=== PATIENT | male | born 1935 | race Caucasian/White ===

== ENCOUNTER 2016-10-11 02:29 | Emergency (ER) | payer MEDICARE, OTHER ==
[2016-10-11 02:37] VITALS: BP 136/58
== END 2016-10-11 03:30 | disposition left against medical advice (07) ==
LOC: ER 02:29
DX: Z53.21 Procedure and treatment not carried out due to patient leaving prior to being seen by health care provider (principal)

== ENCOUNTER → 2017-04-12 | Outpatient (CLI) | payer MEDICARE, OTHER ==
--- NOTE | 2017-04-12 12:04 | RADIOLOGY REPORT (SQ) ---
EXAM DESCRIPTION: CAROTID DOPPLER COMPLETED DATE/TIME: 04/12/2017 11:48 am REASON FOR STUDY: OCCLUSION [id number] TRIB RTNL VEIN OCCLUSION, RIGHT EYE, WITH MACULAR E COMPARISON: None. TECHNIQUE: Grayscale ultrasound, Doppler velocity and spectra, and color Doppler images acquired of the extra-cranial carotid and vertebral arteries. Images stored on PACS. LIMITATIONS: None. FINDINGS: RIGHT CAROTID CCA Velocities: Within normal limits. ICA Velocities Peak systolic 0.41 m/s. End diastolic 0 point 0 8 m/s. Proximal ICA/CCA peak systolic ratio 2.8. Mild to moderate heterogeneous plaque at the bifurcation and adjacent internal carotid LEFT CAROTID CCA Velocities: Within normal limits. ICA Velocities Peak systolic 0.49 m/s. End diastolic 0.13 m/s. Proximal ICA/CCA peak systolic ratio 2.0. Mild to moderate heterogeneous plaque at the bifurcation and adjacent internal carotid VERTEBRAL ARTERIES: Antegrade flow. Normal waveforms. SUBCLAVIAN ARTERIES: No finding. OTHER: No other significant finding. IMPRESSION: NO HEMODYNAMICALLY SIGNIFICANT STENOSIS. COMMENT: Quality ID #[id number]: Velocity criteria are extrapolated from the diameter data as defined by t he Society of Radiologists in Ultrasound Consensus Conference. Radiology 2003: 229; 340-346. TECHNICAL DOCUMENTATION: JOB ID: [id number] [employer]- All Rights Reserved
== END ==
LOC: SP 10:46
PROVIDERS: ATTEND Ophthalmology
DX: H34.8310 Tributary (branch) retinal vein occlusion, right eye, with macular edema (principal)
CPT/HCPCS: 93880

== ENCOUNTER 2017-09-11 08:12 | Emergency (ER) | payer MEDICARE, OTHER ==
--- NOTE | 2017-09-11 09:44 | RADIOLOGY REPORT (SQ) ---
EXAM DESCRIPTION: SHOULDER LEFT 2 OR MORE VIEWS COMPLETED DATE/TIME: 09/11/2017 9:37 am REASON FOR STUDY: pain COMPARISON: None. NUMBER OF VIEWS: Three views. TECHNIQUE: Internal rotation, external rotation, and Y view images acquired of the left shoulder. LIMITATIONS: None. FINDINGS: MINERALIZATION: Normal. BONES: No acute fracture or dislocation. No worrisome bone lesions. JOINTS: Mild osteoarthritis of the acromioclavicular and glenohumeral joints. VISUALIZED LUNGS AND RIBS: No pneumothorax. No rib fracture. SOFT TISSUES: No radiopaque foreign body. OTHER: No other significant finding. IMPRESSION: MILD OSTEOARTHRITIS. NO RADIOGRAPHIC EVIDENCE OF ACUTE INJURY. TECHNICAL DOCUMENTATION: JOB ID: [id number] [employer]- All Rights Reserved
[2017-09-11 10:16] LABS: ANION GAP 10 (5-19); BLOOD UREA NITROGEN 15 mg/dL (7-20); CALCIUM 9.4 mg/dL (8.4-10.2); CARBON DIOXIDE 27 mmol/L (22-30); CHLORIDE 104 mmol/L (98-107); GLUCOSE 93 mg/dL (75-110); POTASSIUM 3.9 mmol/L (3.6-5.0); SODIUM 140.6 mmol/L (137-145)
[2017-09-11] MEDS ORDERED: IBUPROFEN 600 MG TABLET PO ONE (10:20)
[2017-09-11] MEDS ORDERED: LIDOCAINE 5% (700 MG) TRANSDERMAL ADH..PATCH TP ONE (10:56)
--- NOTE | 2017-09-11 10:58 | ER Document Report ---
ED General - General Chief Complaint: Shoulder Pain Stated Complaint: LEFT ARM,LEG PAIN Time Seen by Provider: 09/11/17 08:58 TRAVEL OUTSIDE OF THE [place] IN LAST 30 DAYS: No - HPI Patient complains to provider of: left shoulder pain/no injury and left leg pain Onset: Last week Onset/Duration: Gradual Severity: Moderate Context: Pt. states his left shoulder has been bothering him for a few weeks, gradually getting worse. Aggravated with movement of extremity. Also c/o left leg discomfort. "Hurts all over" no weakness or back pain. Associated symptoms: None Exacerbated by: Movement Relieved by: Denies Similar symptoms previously: No Recently seen / treated by doctor: No - Related Data Allergies/Adverse Reactions: No Known Allergies Allergy (Verified 12/06/11 11:52) Past Medical History - General Information source: Patient - Social History Smoking Status: Former Smoker Frequency of alcohol use: None Drug Abuse: None Lives with: Family - Family History: Reviewed & Not Pertinent Patient has suicidal ideation: No Patient has homicidal ideation: No - Past Medical History Cardiac Medical History: Reports: Hx Hypercholesterolemia Pulmonary Medical History: Reports: Hx COPD Neurological Medical History: Reports: None Endocrine Medical History: Reports: None Renal/ Medical History: Reports: None. Denies: Hx Peritoneal Dialysis Malignancy Medical History: Reports None GI Medical History: Reports: Hx Gastroesophageal Reflux Disease Skin Medical History: Reports None Psychiatric Medical History: Reports: None Traumatic Medical History: Reports: None Infectious Medical History: Reports: None Past Surgical History: Reports: None - Immunizations Hx Diphtheria, Pertussis, Tetanus Vaccination: No History of Influenza Vaccine for 05/2017 - 10/2017 Season: No Review of Systems - Review of Systems Constitutional: No symptoms reported EENT: No symptoms reported Cardiovascular: No symptoms reported Respiratory: No symptoms reported Gastrointestinal: No symptoms reported Genitourinary: No symptoms reported Male Genitourinary: No symptoms reported Musculoskeletal: Joint pain - left shoulder Skin: No symptoms reported Hematologic/Lymphatic: No symptoms reported Neurological/Psychological: No symptoms reported Physical Exam - Vital signs Vitals: Resp Pulse Ox 14 96 09/11/17 08:33 09/11/17 08:33 - Notes Notes: PHYSICAL EXAMINATION: GENERAL: Well-appearing, well-nourished and in no acute distress. HEAD: Atraumatic, normocephalic. EYES: Pupils equal round and reactive to light, extraocular movements intact, sclera anicteric, conjunctiva are normal. ENT: Nares patent, oropharynx clear without exudates. Moist mucous membranes. NECK: Normal range of motion, supple without lymphadenopathy LUNGS: Breath sounds clear to auscultation bilaterally and equal. No wheezes rales or rhonchi. HEART: Regular rate and rhythm ABDOMEN: Soft, nontender, nondistended abdomen. No guarding, no rebound. No masses appreciated. Musculoskeletal:Patient's left upper extremity has pain over the shoulder joint that is worsened with flexion of the shoulder as well as external rotation. There is no gross deformity. It is neurovascularly intact. Patient is 5 out of 5 strength bilateral lower extremities there is no calf tenderness swelling or pain. Patient states when he lifts his leg aches. He does Not have any pain over his left SI joint. Patient has +2 femoral and DP pulses bilaterally. Both legs are warm. NEUROLOGICAL: Cranial nerves grossly intact. Normal speech, normal gait. Normal sensory PSYCH: Normal mood, normal affect. SKIN: Warm, Dry, normal turgor, no rashes or lesions noted. Course - Vital Signs Vital signs: Temp Pulse Resp BP Pulse Ox 16 124/84 93 09/11/17 11:50 09/11/17 11:51 09/11/17 11:50 - Laboratory Result Diagrams: 09/11/17 09:38 - Diagnostic Test Radiology reviewed: Image reviewed, Reports reviewed Radiology results interpreted by me: 09/11/17 14:44 Osteoarthritis left shoulder Discharge - Discharge Clinical Impression: Shoulder pain, left Condition: Stable Disposition: HOME, SELF-CARE Instructions: Arthritis ([facility]) Referrals: DEBORAH ARTEAGA MD [Primary Care Provider] - Follow up in 3-5 days (call in am for appointment)
[2017-09-11 12:08] VITALS: BP 124/84
== END 2017-09-11 12:09 | disposition home or self-care (01) ==
LOC: ER 08:12
DX: M19.012 Primary osteoarthritis, left shoulder (principal); M25.512 Pain in left shoulder; M79.605 Pain in left leg; Z87.891 Personal history of nicotine dependence; J44.9 Chronic obstructive pulmonary disease, unspecified
CPT/HCPCS: 99284; 36415; 80048; 73030; A9270

== ENCOUNTER 2018-01-04 16:38 | Inpatient (IN) | payer MEDICARE, OTHER ==
[2018-01-04] MEDS ORDERED: NORMAL SALINE 1000 ML 1,000 ML IV ONE ×2 (16:59→20:55)
--- NOTE | 2018-01-04 17:04 | ER Document Report ---
ED Cardiac - General Chief Complaint: Irregular Pulse Stated Complaint: RAPID HEART RATE Time Seen by Provider: 01/04/18 16:58 Notes: The patient is an 82-year-old male who presents from the [place] [facility] after he was found to be tachycardic with a heart rate of 145. EKG shows sinus tachycardia. Pt was accompanying his at the doctor's office. Patient has no complaints and denies chest pain, palpitations, shortness of breath, syncope , lightheadedness, fevers, cough, nausea, vomiting, leg swelling or back pain. TRAVEL OUTSIDE OF THE [place] IN LAST 30 DAYS: No - Related Data Allergies/Adverse Reactions: No Known Allergies Allergy (Verified 12/06/11 11:52) Past Medical History - General Information source: Patient - Social History Smoking Status: Former Smoker Family History: Reviewed & Not Pertinent - Past Medical History Cardiac Medical History: Reports: Hx Hypercholesterolemia Pulmonary Medical History: Reports: Hx COPD Renal/ Medical History: Denies: Hx Peritoneal Dialysis GI Medical History: Reports: Hx Gastroesophageal Reflux Disease - Immunizations Hx Diphtheria, Pertussis, Tetanus Vaccination: No Review of Systems - Review of Systems Notes: REVIEW OF SYSTEMS: CONSTITUTIONAL: -fevers, -chills EENT: -eye pain, -difficulty swallowing, -nasal congestion CARDIOVASCULAR: -chest pain, -syncope. RESPIRATORY: -cough, -SOB GASTROINTESTINAL: -abdominal pain, -nausea, -vomiting, -diarrhea GENITOURINARY: -dysuria, -hematuria MUSCULOSKELETAL: -back pain, -neck pain SKIN: -rash or skin lesions. HEMATOLOGIC: -easy bruising or bleeding. LYMPHATIC: -swollen, enlarged glands. NEUROLOGICAL: -altered mental status or loss of consciousness, -headache, - neurologic symptoms PSYCHIATRIC: -anxiety, -depression. ALL OTHER SYSTEMS REVIEWED AND NEGATIVE. Physical Exam - Vital signs Vitals: Resp Pulse Ox 26 H 97 01/04/18 16:45 01/04/18 16:45 - Notes Notes: PHYSICAL EXAMINATION: GENERAL: Well-appearing, well-nourished and in no acute distress. HEAD: Atraumatic, normocephalic. EYES: Pupils equal round and reactive to light, extraocular movements intact, sclera anicteric, conjunctiva are normal. ENT: nares patent, oropharynx clear without exudates. Moist mucous membranes. NECK: Normal range of motion, supple without lymphadenopathy LUNGS: Breath sounds clear to auscultation bilaterally and equal. No wheezes rales or rhonchi. HEART: Regular rhythm, tachycardia. ABDOMEN: Soft, nontender, normoactive bowel sounds. No guarding, no rebound. No masses appreciated. EXTREMITIES: Normal range of motion, no pitting or edema. No cyanosis. NEUROLOGICAL: Cranial nerves grossly intact. Normal speech, normal gait. Normal sensory and motor exams. PSYCH: Normal mood, normal affect. SKIN: Warm, Dry, normal turgor, no rashes or lesions noted. Course - Re-evaluation Re-evalutation: Patient with persistent sinus tachycardia, even after 1 L of IV fluids, IV metoprolol and PO cardiazem. His d-dimer is positive, but his CTA does not show evidence of a PE. His thyroid studies are normal and rest of blood work is unremarkable. He is completely asymptomatic. Patient requires admission due to the persistent tachycardia and further evaluation and treatment. His PMD is Dr. Arteaga. 01/04/18 20:[address] Marie and will admit patient to Inpatient Tele for further evaluation and treatment. - Vital Signs Vital signs: Temp Pulse Resp BP Pulse Ox 20 102/74 95 01/04/18 20:01 01/04/18 20:01 01/04/18 20:01 - Laboratory Result Diagrams: 01/04/18 16:50 01/04/18 16:50 Laboratory results interpreted by me: 01/04/18 01/04/18 01/04/18 16:50 16:50 16:50 Hgb 12.3 L MCHC 31.8 L RDW 15.5 H Monocytes % 13.1 H D-Dimer 1.54 H Direct Bilirubin 0.5 H Creatine Kinase 44 L TSH 01/04/18 16:50 Hgb MCHC RDW Monocytes % D-Dimer Direct Bilirubin Creatine Kinase TSH 7.50 H - Diagnostic Test Radiology reviewed: Image reviewed, Reports reviewed Radiology results interpreted by me: CTA Chest: 1. There is no evidence of pulmonary emboli. 2. Centrilobular emphysema. Subsegmental atelectasis. Small pleural effusions. Calcified pleural plaques. - EKG Interpretation by [place] EKG shows normal: Sinus rhythm, [place], Intervals, QRS Complexes, ST-T Waves Rate: Tachycardia Discharge - Discharge Clinical Impression: Sinus tachycardia Condition: Stable Disposition: ADMITTED INPATIENT [facility] Admitted: Telemetry Referrals: DEBORAH ARTEAGA MD [Primary Care Provider] - Follow up as needed
[2018-01-04 17:11] LABS: ABSOLUTE BASOPHILS # (AUTO) 0.1 10^3/uL (0.0-0.2); ABSOLUTE LYMPHOCYTES (AUTO) 2.2 10^3/uL (0.5-4.7); ABSOLUTE MONOCYTES (AUTO) 0.9 10^3/uL (0.1-1.4); ABSOLUTE NEUT (AUTO) 3.4 10^3/uL (1.7-8.2); BASOPHILS % (AUTO) 0.8 % (0-2); EOSINOPHILS % (AUTO) 0.6 % (0-6); HEMATOCRIT 38.6 % (37.9-51.0); HEMOGLOBIN 12.3 g/dL (13.5-17.0); MEAN CORPUSCULAR HGB CONC 31.8 g/dL (32.0-36.0); MEAN CORPUSCULAR VOLUME 88 fl (80-97); MONOCYTES % (AUTO) 13.1 % (3-13); PLATELET COUNT 199 10^3/uL (150-450); RED BLOOD COUNT 4.37 10^6/uL (4.35-5.55); RED CELL DISTRIBUTION WIDTH 15.5 % (11.5-14.0); SEGMENTED NEUTROPHILS % (AUTO) 52.5 % (42-78); TOTAL CELLS COUNTED % (AUTO) 100 %; WHITE BLOOD COUNT 6.6 10^3/uL (4.0-10.5)
[2018-01-04 17:22] LABS: ALANINE AMINOTRANSFERASE 23 U/L (21-72); ALKALINE PHOSPHATASE 118 U/L (38-126); ANION GAP 15 (5-19); ASPARTATE AMINO TRANSFERASE 21 U/L (17-59); BILIRUBIN,DIRECT 0.5 mg/dL (0.0-0.4); BILIRUBIN,TOTAL 0.6 mg/dL (0.2-1.3); BLOOD UREA NITROGEN 17 mg/dL (7-20); CALCIUM 9.2 mg/dL (8.4-10.2); CARBON DIOXIDE 25 mmol/L (22-30); CHLORIDE 104 mmol/L (98-107); CREATINE KINASE 44 U/L (55-170); GLUCOSE 90 mg/dL (75-110); POTASSIUM 4.1 mmol/L (3.6-5.0); SODIUM 144.1 mmol/L (137-145); TOTAL PROTEIN 7.4 g/dL (6.3-8.2)
[2018-01-04 17:39] LABS: FREE T3 4.58 pg/mL (2.77-5.27); FREE T4 (FREE THYROXINE) 1.13 ng/dL (0.78-2.19)
[2018-01-04 17:52] LABS: THYROID STIMULATING HORMONE 7.5 uIU/mL (0.47-4.68)
--- NOTE | 2018-01-04 18:04 | RADIOLOGY REPORT (SQ) ---
EXAM DESCRIPTION: CTA CHEST COMPLETED DATE/TIME: 01/04/2018 5:44 pm REASON FOR STUDY: tachycardia, elevated d-dimer COMPARISON: None. TECHNIQUE: CT scan of the chest performed using helical scanning technique with dynamic intravenous contrast injection. Images reviewed with lung, soft tissue and bone windows. Reconstructed coronal and sagittal MPR images reviewed. Additional 3 dimensional post-processing performed to develop Maximal Intensity Projection images ([place] P). All images stored on PACS. All CT scanners at this facility use dose modulation, iterative reconstruction, and/or weight based d osing when appropriate to reduce radiation dose to as low as reasonably achievable (ALARA). [facility]: Dose Right [facility]: CareDose [facility]: Dose Right [facility]: Teradose 4D [facility]: [employer] CONTRAST TYPE AND DOSE: 68 cc Isovue 370- low osmolar. Contrast bolus optimized for the pulmonary arteries. Not diagnostic for the aorta. RENAL FUNCTION: BUN 17 creatinine 1.03 RADIATION DOSE: CT Rad equipment meets quality standard of care and radiation dose reduction techniq ues were employed. CTDIvol: 16.7 - 23.2 mGy. DLP: 715 mGy-cm. . LIMITATIONS: None. FINDINGS: LUNGS AND PLEURA: Mild to moderate centrilobular emphysematous changes. Subsegmental atel ectasis in the left upper lobe. Small pleural effusions. Calcified pleural plaques. AORTA AND GREAT VESSELS: No aneurysm. Contrast bolus not optimized for the aorta. HEART: No pericardial effusion. Moderate to marked coronary artery calcifications. PULMONARY ARTERIES: No emboli visualized in the main pulmonary arteries or the segmental branches. HILAR AND MEDIASTINAL STRUCTURES: No identified masses or abnormal nodes. HARDWARE: None in the chest. UPPER ABDOMEN: No significant findings. Limited exam. THYROID AND OTHER SOFT TISSUES: No masses. No adenopathy. BONES: No acute or significant finding. 3D MIPS: Confirm above findings. OTHER: No other significant finding. IMPRESSION: 1. There is no evidence of pulmonary emboli. 2. Centrilobular emphysema. Subsegmental atelectasis. Small pleural effusions. Calcified pleural plaques. COMMENT: Quality ID # [id number]: Final reports with documentation of one or more dose reduction techniques (e.g., Automated exposure control, adjustment of the mA and/or kV according to patient size, use of iterative reconstruction technique) TECHNICAL DOCUMENTATION: JOB ID: [id number]- All Rights Reserved Reading location - IP/workstation name: [email or web address]
[2018-01-04] MEDS ORDERED: METOPROLOL TARTRATE PF/INJ 5 MG/5 ML SDV IV ONE (18:56)
[2018-01-04] MEDS ORDERED: DILTIAZEM HCL 180 MG CAPSULE.CR PO ONE (19:49)
[2018-01-04] MEDS ORDERED: ONDANSETRON HCL INJ/PF 4 MG/2 ML SDV IV PRN (21:25)
--- NOTE | 2018-01-04 21:25 | PDOC H&P ---
History of Present Illness Admission Date/PCP: 01/04/18 21:11 DEBORAH ARTEAGA MD History of Present Illness: JUANITA ROACH is a 82 year old male patient with past medical history of GERD, hypertension, hyperlipidemia and COPD noted from his primary care physician office at [facility] for tachycardia with heart rate of 145. Otherwise patient does not have any acute complaints. No chills, fever, cough, chest pain, nausea, vomiting, abdominal pain, diarrhea, dizziness, headache, blurry vision or any seizure activity. No urinary complaints. He Works are unremarkable, TSH and CTA are negative. Patient is hydrated and given a dose of IV Lopressor but continue to have tachycardia ranging between 130 and 150. Past Medical History Cardiac Medical History: Reports: Hyperlipidema Pulmonary Medical History: Reports: Chronic Obstructive Pulmonary Disease (COPD) GI Medical History: Reports: Gastroesophageal Reflux Disease Social History Smoking Status: Former Smoker Frequency of Alcohol Use: None Drugs: None - Advance Directive Resuscitation Status: Full Code Family History Family History: Reviewed & Not Pertinent, Hypertension Parental Family History Reviewed: Yes Children Family History Reviewed: Yes Sibling(s) Family History Reviewed.: Yes Medication/Allergy Home Medications: Alfuzosin HCl [Uroxatral] 10 mg PO DAILY 12/06/11 Aspirin [Ecotrin 81 mg EC Tablet] 81 mg PO DAILY 12/06/11 Ezetimibe/Simvastatin [Vytorin 10-80 Mg Tablet] 1 each PO DAILY 12/06/11 Fluticasone/Salmeterol [Advair 250-50 Diskus] 1 puff IH Q12 12/06/11 Guaifenesin [Mucinex] 600 mg PO DAILY 12/06/11 Ibuprofen [Motrin 800 Mg Tablet] 800 mg PO DAILY 12/06/11 Lisinopril [Prinivil] 20 mg PO DAILY 12/06/11 Multivitamin [Vitamin A Day] 1 each PO DAILY 12/06/11 Omeprazole [Prilosec] 40 mg PO DAILY 12/06/11 Esomeprazole Magnesium [Nexium] 20 mg PO DAILY 01/04/18 Allergies/Adverse Reactions: No Known Allergies Allergy (Verified 12/06/11 11:52) Review of Systems Constitutional: PRESENT: as per HPI Eyes: PRESENT: as per HPI Ears: PRESENT: as per HPI Cardiovascular: PRESENT: as per HPI Gastrointestinal: PRESENT: as per HPI Genitourinary: ABSENT: dysuria, hematuria Neurological: PRESENT: as per HPI Psychiatric: PRESENT: as per HPI Physical Exam Vital Signs: Temp Pulse Resp BP Pulse Ox 20 102/74 95 01/04/18 20:01 01/04/18 20:01 01/04/18 20:01 General appearance: PRESENT: no acute distress Head exam: PRESENT: atraumatic, normocephalic Respiratory exam: PRESENT: clear to auscultation amina. ABSENT: rales, rhonchi, wheezes Cardiovascular exam: PRESENT: tachycardia GI/Abdominal exam: PRESENT: normal bowel sounds, soft. ABSENT: distended, guarding, mass, organolmegaly, rebound, tenderness Neurological exam: PRESENT: alert, awake, oriented to time, oriented to situation Psychiatric exam: PRESENT: normal mood Results Impressions: Chest/Abdomen CTA 01/04/18 17:22 IMPRESSION: 1. There is no evidence of pulmonary emboli. 2. Centrilobular emphysema. Subsegmental atelectasis. Small pleural effusions. Calcified pleural plaques. Assessment & Plan - Diagnosis (1) Sinus tachycardia Plan: Cardiac monitoring (2) COPD (chronic obstructive pulmonary disease) Qualifiers: COPD type: unspecified COPD Qualified Code(s): J44.9 - Chronic obstructive pulmonary disease, unspecified Is this a current diagnosis for this admission?: Yes Plan: Patient stable. As needed DuoNeb treatment (3) Hyperlipidemia Qualifiers: Hyperlipidemia type: unspecified Qualified Code(s): E78.5 - Hyperlipidemia , unspecified Is this a current diagnosis for this admission?: Yes Plan: Continue home medication - Time Critical Time spent with patient: 25-34 minutes
[2018-01-04] MEDS ORDERED: ALPRAZOLAM 0.5 MG TABLET PO ONE (22:00)
--- NOTE | 2018-01-04 22:55 | EKG REPORT ---
SEVERITY:- ABNORMAL ECG - ATRIAL FLUTTER WITH 2:1 CONDUCTION REPOLARIZATION ABNORMALITY, PROB RATE RELATED BORDERLINE PROLONGED QT INTERVAL : Confirmed by: Flaquito Nguyen 04-Jan-2018 19:54:38
[2018-01-04] MEDS ORDERED: GUAIFENESIN 600 MG TABLET.SA PO ONE (23:00)
[2018-01-04] MEDS ORDERED: IPRATROPIUM/ALBUTEROL 0.5-2.5 MG/3 ML AMPUL NEB ONE (23:45)
[2018-01-05] MEDS ORDERED: LISINOPRIL 10 MG TABLET PO ONE (00:45)
[2018-01-05] MEDS ORDERED: LEVALBUTEROL HCL NEB 1.25 MG/3 ML AMPUL NEB ONE (01:00)
[2018-01-05] MEDS: METOPROLOL TARTRATE PF/INJ 5 MG/5 ML SDV IV PRN (01:19)
[2018-01-05] MEDS ORDERED: IPRATROPIUM/ALBUTEROL 0.5-2.5 MG/3 ML AMPUL NEB SCH (02:00)
[2018-01-05] MEDS: LEVALBUTEROL HCL NEB 1.25 MG/3 ML AMPUL NEB SCH ×2 (02:54→08:20)
[2018-01-05] MEDS: LANSOPRAZOLE 30 MG TAB.RAP.DR PO SCH (05:16)
[2018-01-05 05:17] LABS: HEMATOCRIT 33.7 % (37.9-51.0); HEMOGLOBIN 10.9 g/dL (13.5-17.0); MEAN CORPUSCULAR HEMOGLOBIN 28.3 pg (27.0-33.4); MEAN CORPUSCULAR HGB CONC 32.3 g/dL (32.0-36.0); MEAN CORPUSCULAR VOLUME 88 fl (80-97); PLATELET COUNT 150 10^3/uL (150-450); RED BLOOD COUNT 3.84 10^6/uL (4.35-5.55); RED CELL DISTRIBUTION WIDTH 15.4 % (11.5-14.0); WHITE BLOOD COUNT 5.9 10^3/uL (4.0-10.5)
[2018-01-05 05:41] LABS: BLOOD UREA NITROGEN 15 mg/dL (7-20); CALCIUM 8.3 mg/dL (8.4-10.2); CARBON DIOXIDE 22 mmol/L (22-30); CHLORIDE 109 mmol/L (98-107); GLUCOSE 94 mg/dL (75-110); POTASSIUM 3.8 mmol/L (3.6-5.0); SODIUM 144.9 mmol/L (137-145)
[2018-01-05 05:42] LABS: ANION GAP 14 (5-19)
[2018-01-05] MEDS ORDERED: DILTIAZEM HCL INJ 25 MG/5 ML VIAL IV ONE (09:55)
[2018-01-05] MEDS ORDERED: LISINOPRIL 10 MG TABLET PO SCH (10:00)
[2018-01-05] MEDS ORDERED: ENOXAPARIN SODIUM INJ 40 MG/0.4 ML DISP.SYRIN SUBCUT SCH (10:00)
[2018-01-05] MEDS: GUAIFENESIN 600 MG TABLET.SA PO SCH ×2 (10:26→17:03)
[2018-01-05] MEDS: DILTIAZEM HCL/D5W 125 MG/125 ML RTUINJ IV PRN ×2 (11:27→20:52)
[2018-01-05] MEDS ORDERED: ENOXAPARIN SODIUM INJ 80 MG/0.8 ML DISP.SYRIN SUBCUT ONE (11:30)
[2018-01-05] MEDS ORDERED: DIGOXIN INJ 0.5 MG/2 ML AMPULE IV ONE (12:15)
--- NOTE | 2018-01-05 18:21 | PDOC PROGRESS REPORT ---
Subjective Progress Note for:: 01/05/18 Subjective:: Patient was evaluated in the telemetry unit ; he is an elderly man who is hard of hearing Appears very comfortable He denies having any chest pain no shortness of breath No abdominal pain nausea vomiting On the monitor patient is seen in atrial flutter 2-1 conduction at the rate 145/ min Reason For Visit: PAROXYSMAL ATRIAL FLUTTER Physical Exam Vital Signs: Temp Pulse Resp BP Pulse Ox 98.1 F 77 20 112/64 99 01/05/18 17:10 01/05/18 17:10 01/05/18 17:10 01/05/18 17:10 01/05/18 17:10 General appearance: PRESENT: no acute distress, cooperative Head exam: PRESENT: atraumatic, normocephalic Eye exam: PRESENT: conjunctiva pink, EOMI, PERRLA. ABSENT: scleral icterus Neck exam: ABSENT: carotid bruit, JVD, lymphadenopathy, thyromegaly Respiratory exam: PRESENT: clear to auscultation amina. ABSENT: rales, rhonchi, wheezes Cardiovascular exam: PRESENT: tachycardia. ABSENT: diastolic murmur, systolic murmur Pulses: PRESENT: normal dorsalis pedis pul GI/Abdominal exam: PRESENT: normal bowel sounds, soft. ABSENT: distended, guarding, mass, organolmegaly, rebound, tenderness Extremities exam: PRESENT: full ROM. ABSENT: calf tenderness - [id number], clubbing , pedal edema Neurological exam: PRESENT: alert, awake, CN II-XII grossly intact - [id number] Psychiatric exam: PRESENT: appropriate affect, normal mood Results Impressions: Chest/Abdomen CTA 01/04/18 17:22 IMPRESSION: 1. There is no evidence of pulmonary emboli. 2. Centrilobular emphysema. Subsegmental atelectasis. Small pleural effusions. Calcified pleural plaques. Assessment & Plan - Diagnosis (1) Paroxysmal atrial flutter Is this a current diagnosis for this admission?: Yes Plan: Discussed case with Dr. Whitfield cardiology Patient would be anticoagulated with Lovenox Cardizem IV Cardizem drip initiated Transfer the patient to [facility] Further management as per cardiology (2) COPD (chronic obstructive pulmonary disease) Qualifiers: COPD type: unspecified COPD Qualified Code(s): J44.9 - Chronic obstructive pulmonary disease, unspecified Is this a current diagnosis for this admission?: Yes (3) Hyperlipidemia Qualifiers: Hyperlipidemia type: unspecified Qualified Code(s): E78.5 - Hyperlipidemia , unspecified Is this a current diagnosis for this admission?: Yes - Time Time Spent with patient: 25-34 minutes
--- NOTE | 2018-01-05 20:59 | CONSULTATION REPORT E ---
Consultation Report NAME: JUANITA ROACH : 1935 AGE: 82Y DATE: 01/05/2018 308 A TO: YADI ACEVES M.D. FROM: Walker COHEN, Requesting Physician REASON FOR CONSULTATION: Tachycardia. HISTORY: The patient is a pleasant 82-year-old male with known history of hypertension, COPD, GERD, and history of coronary artery disease with remote history of stent in an unknown coronary artery in 1999. He states that he went for a routine checkup with his primary care physician where he was found to be tachycardic. The patient is asymptomatic from this. He denies any palpitations. There is no shortness of breath. There is no chest pain or discomfort. There is no PND, orthopnea, shortness of breath. He has no symptoms suggestive of exacerbation of COPD and no wheezing. The patient denies any PND or orthopnea. There is no leg edema. There are no symptoms of TIA or CVA. The patient does not feel his heart pounding fast and it is not clear as to how long the patient had this tachycardic rhythm. Review of the monitor shows that the patient has atrial flutter with rapid ventricular response with a fairly stable blood pressure. PAST MEDICAL HISTORY: Positive for history of CAD. No history of CA. He states that in 1999, he had a stent in 1 unknown coronary artery in [facility]. Records will be difficult to get since it is more than 8 years. The patient denies any recent stress test or any recent anginal symptoms. There is no history of congestive heart failure. He has a history of hypertension which the patient claims is well controlled. He also has a history of COPD, quit smoking many years ago. He states that there are no symptoms of acute exacerbation of chronic obstructive pulmonary disease although he has a minimal cough which is really nonproductive. There is no chest pain or any sort. There is no PND, orthopnea. There is no leg edema. There are no palpitations, syncope or near syncope. There are no TIA or CVA symptoms. The patient has no contraindications for anticoagulation chronically. He denies any history of diabetes mellitus or chronic kidney disease. He does have symptoms of GERD. He also has hyperlipidemia and takes medication for that. PAST SURGICAL HISTORY: Cardiac catheterization in 1999 with stent placement, as mentioned earlier. FAMILY HISTORY: Positive for hypertension. Negative for coronary artery disease. DISPOSITION: THE PATIENT IS A FULL CODE. He states that he has 4 sons and his oldest son is his surrogate healthcare decision maker. ALLERGIES: The patient has no known allergies. MEDICATIONS: 1. Tylenol 650 mg p.o. q. 4 hours p.r.n. 2. Xanax 1 mg p.o. x1. 3. He did get Cardizem 180 mg p.o. x1. 4. Mucinex 600 mg p.o. x1 and 600 mg p.o. b.i.d. 5. Ipratropium/albuterol sulfate DuoNebs 3 mL per nebulizer x1 and this has been discontinued. 6. He had a normal saline bolus 1000 mL. 7. Prevacid 30 mg p.o. q. 6:00 a.m. 8. Xopenex 1.25 nebulizer treatment x1. This has been discontinued. 9. Lisinopril 20 mg p.o. x1. 10. Lorazepam 2 mg IV q. 4 hours p.r.n. 11. Metoprolol 5 mg IV q. 2 hours p.r.n. 12. Normal saline flush 2.5 mL IV q. 8 hours. 13. Zofran 4 mg IV q. 8 hours p.r.n. 14. He did get Cardizem 10 mg IV push x1 early this morning. The metoprolol and the Cardizem did not bring his heart rate down. REVIEW OF SYSTEMS: HEAD: Denies any headaches or head injury. EYES: No history of amblyopia or diplopia. No history of amaurosis fugax. EARS: No history of hearing loss. No history of tinnitus. No history of recurrent ear infections. NOSE: No history of nosebleeds. No nasal polyps. No history of hay fever. MOUTH: No history of altered taste sensation. No ulcers in the mouth. No bleeding from the gums. THROAT: No redness of the oropharynx. No exudates in the throat. No odynophagia or dysphagia. SKIN: No history of skin rashes. No history of eczema. No history of psoriasis. No history of yellowish discoloration of the skin. No pruritus. LUNGS: History of COPD. No recent symptoms of acute exacerbation except he has mild cough which is nonproductive which is not too bothersome. He denies any wheezing. There is no history of sleep apnea. There are no symptoms suggestive of pneumonia. There is no pleuritic chest pain. There is no history of pulmonary embolism. No history of sleep apnea. No history of hemoptysis. CARDIAC: History of hypertension, well controlled as per the patient. The patient found to be in tachycardia and monitor and EKG shows atrial flutter with a rapid ventricular response. The patient has been asymptomatic. It is not clear the duration of this atrial flutter. He has no contraindication for anticoagulation. He has no history of TIA or CVA. There is no history of congestive heart failure. No recent angina symptoms. History of CAD. History of stent, as mentioned earlier. There is no history of CA. No PND, orthopnea or leg edema. The patient does have dyspnea on exertion with more than moderate exertion, most likely secondary to COPD. No leg edema. Denies any palpitations, syncope, near syncope or dizziness. GI: History of GERD present. No history of fatty food intolerance. No history of GI bleed. No history of peptic ulcer disease. No history of hepatitis. No history of jaundice. No history of cirrhosis. No historical altered bowel movements. RENAL: No history of chronic renal insufficiency. No history of symptoms of UTI. No history of hematuria, pyuria or dysuria. MUSCULOSKELETAL: Denies arthritis or collagen-vascular disease. CENTRAL NERVOUS SYSTEM: No history of TIA or CVA. No history of seizures, headaches or migraines. No history of sleep apnea. No history of gait imbalance. No history of frequent falls. PSYCHIATRIC: No history of anxiety or depression. No history of suicidal ideation. HEMATOLOGICAL: No history of bleeding diathesis. No history of clotting disorders. VASCULAR: No history of calf or buttocks claudication. No history of DVT. CONSTITUTIONAL: Denies any fever, chills, or rigors. PHYSICAL EXAMINATION: GENERAL: The patient appears to be well built and well nourished in no acute distress. He is lying flat in bed and totally unaware of his rapid beating of his heart. VITAL SIGNS: His temperature is afebrile at 98.1 degrees Fahrenheit; his pulse is 137-144 beats per minute, atrial flutter with rapid ventricular response; blood pressure is 119/87; respirations are 20 per minute; O2 sats are 97% on 2 L of nasal cannula. HEENT: Head is atraumatic, normocephalic. Eyes: Pupils are equal, round, regular, reactive to light and accommodation. Extraocular movements are normal. There is no conjunctival pallor. There is no scleral icterus. Ears: Tympanic membranes are intact. External auditory canals are clear. Nose: There is no deviated nasal septum. There is no inflammation of the nasal mucous membranes. Mouth: Mucous membranes of the mouth are moist. Tongue is moist. There are no ulcers. There is no bleeding from the gums. Throat: There is no redness of the oropharynx. There are no exudates. SKIN: There are no skin rashes. There is no petechia or ecchymosis. There are no skin lesions. NECK: Supple. There is no JVD. Carotids are equal. There is no bruit. There is no lymphadenopathy. There is no goiter. Trachea central. LUNGS: Showed diminished air entry and prolonged expiration throughout. With no rhonchi, rales or wheezing. There is no chest wall tenderness. HEART: S1 and S2 is heard. S1 is of variable intensity. There is no S3 gallop. There is no S4 gallop. There is a systolic murmur, left sternal border on the apex. There is no rub. ABDOMEN: Soft, nontender. There is no hepatosplenomegaly. Bowel sounds are well heard. There are no tender areas or masses. EXTREMITIES: Femorals are slightly diminished. There are no femoral bruits. Leg pulses are diminished. There is no pedal edema. There is no cyanosis or clubbing. There is no cellulitis. There is no DVT. There is no calf tenderness. CENTRAL NERVOUS SYSTEM: The patient is conscious, awake, alert, oriented x3 with no focal deficits. SOCIAL HISTORY: The patient has no history of ETOH abuse. The patient quit smoking many, many years ago. DIAGNOSTICS: The patient's EKG done on admission shows the atrial flutter with 2:1 conduction, repolarization abnormality, most likely related to rate. His chest abdominal CTA done due to high D-dimer shows there is no evidence of pulmonary emboli. There is centrilobar emphysema, subsegmental atelectasis, small pleural effusion, calcified pleural plaques. His EKG strips show that the patient is in a-flutter. The patient's white count is 5900; hemoglobin is 10.9; hematocrit is 33.7; platelet count is 150,000. The patient's D-dimer is 1.54. The patient's sodium is 144.9, potassium 3.8, chloride 109, CO2 is 22; the patient's BUN is 15, creatinine 0.87, GFR is greater than 60; his glucose is 94, calcium is 8.3. The patient's free T4 is normal at 1.13, free T3 is normal at 1.58 but his TSH is 7.50. Most likely, this is a spurious increase in the TSH. The patient does not appear to be hypothyroid. The patient's liver function tests showed direct bilirubin high at 0.5; the CK is 44 which is low. The rest of the liver function tests are normal. IMPRESSION: 1. Atrial flutter with rapid ventricular response. 2. Coronary artery disease, history of stent in an unknown coronary artery in 1999 with no angina symptoms for a long time, no history of CA, and no history of congestive heart failure. 3. Hypertension seems to be well controlled. 4. COPD appears to be baseline. 5. Hyperlipidemia. 6. GERD. RECOMMENDATIONS: Would transfer the patient to a telemetry unit and start the patient on a Cardizem drip. If the heart rate still is up, would try a dose of digoxin. Once the heart rate is controlled, then would recommend that the patient have an echocardiogram. The patient has no contraindications for anticoagulation and hence, would start the patient on Lovenox 1 mg/kg subcutaneously q. 12 hours since the patient's current KIRK-VASC2 score is 3 and hence, the patient would benefit from chronic anticoagulation. The risks and benefits of Lovenox and the new modality for anticoagulation has been discussed with the patient. The risk of bleeding versus the benefits of stroke prophylaxis has been with the patient. Also, it has been discussed that if the patient did choose Coumadin then he has to watch his diet and has to have periodic blood tests to make sure that the INR is therapeutic. Also, I have discussed that many medications may either increase or decrease the therapeutic efficacy of Coumadin whereas the newer anticoagulation agents, the patient does not have to adhere to a diet and there are no blood tests but the down side is that if the patient should bleed, there is no antidote, whereas Coumadin does have antidote to get the PT/PTT back into the normal range with IV fresh frozen plasma and vitamin K. Later, after the patient has been on 4-6 weeks of anticoagulation, then would discuss the option of the patient being referred to an EP remote sensing surveyor for ablation of his atrial flutter. We will repeat the patient's EKG in the a.m. TIME SPENT: Sixty minutes were spent on the patient with more than 50% of the time spent on direct patient care. His medications have been reviewed and medications adjusted. Medical decision making is of high complexity due to the patient being asymptomatic with a rapid atrial fibrillation flutter. Discussed with the hospitalist taking care of the patient. Note: Of the 60 minutes spent on the patient, more than 50% of the time was spent on direct patient care and coordinating the care with the patient. Discussed with the nurses and the attending physician taking care of the patient. DICTATING PHYSICIAN: YADI ACEVES M.D. [id number] PHY#: [id number] ID: [id number] JOB#: [id number] ACCT: [id number] cc:YADI ACEVES M.D. >
[2018-01-05] MEDS: ENOXAPARIN SODIUM INJ 80 MG/0.8 ML DISP.SYRIN SUBCUT SCH (21:25)
[2018-01-05] MEDS ORDERED: LEVALBUTEROL HCL NEB 0.63 MG/3 ML AMPUL NEB ONE ×2 (22:09→22:30)
[2018-01-05] MEDS: LORAZEPAM INJ 2 MG/1 ML VIAL IV PRN (23:29)
[2018-01-06] MEDS: LEVALBUTEROL HCL NEB 0.63 MG/3 ML AMPUL NEB SCH ×4 (02:03→19:46)
[2018-01-06] MEDS: METOPROLOL TARTRATE PF/INJ 5 MG/5 ML SDV IV PRN (04:48)
[2018-01-06] MEDS: DILTIAZEM HCL 30 MG TABLET PO SCH ×3 (06:29→17:04)
[2018-01-06] MEDS: LANSOPRAZOLE 30 MG TAB.RAP.DR PO SCH (06:29)
[2018-01-06] MEDS: DILTIAZEM HCL/D5W 125 MG/125 ML RTUINJ IV PRN (06:36)
--- NOTE | 2018-01-06 08:27 | EKG REPORT ---
SEVERITY:- ABNORMAL ECG - A-FLUTTER W/ PREDOM 4:1 AV BLOCK, A-RATE 272 LOW VOLTAGE IN FRONTAL LEADS : Confirmed by: Flaquito Nguyen 06-Jan-2018 05:26:05
[2018-01-06] MEDS: DIGOXIN 0.125 MG TABLET PO SCH (09:31)
[2018-01-06] MEDS: GUAIFENESIN 600 MG TABLET.SA PO SCH ×2 (09:31→17:04)
[2018-01-06] MEDS: ENOXAPARIN SODIUM INJ 80 MG/0.8 ML DISP.SYRIN SUBCUT SCH ×2 (09:31→22:22)
[2018-01-06] MEDS: LORAZEPAM INJ 2 MG/1 ML VIAL IV PRN ×2 (10:23→21:18)
--- NOTE | 2018-01-06 13:55 | PDOC PROGRESS REPORT ---
Subjective Progress Note for:: 01/06/18 Subjective:: Patient was evaluated in the telemetry unit ; he is an elderly man who is hard of hearing Appears very comfortable He denies having any chest pain no shortness of breath No abdominal pain nausea vomiting On the monitor patient is seen in atrial flutter 2-1 conduction at the rate 145/ min 01/06 Patient was extremely agitated last night tremulous withdrawing from alcohol family states usually drinks 4-5 beers per day had to be sedated last night with Ativan Extremely lethargic now still in flutter with controlled rate Reason For Visit: PAROXYSMAL ATRIAL FLUTTER Physical Exam Vital Signs: Temp Pulse Resp BP Pulse Ox 98.3 F 72 18 128/73 H 99 01/06/18 11:42 01/06/18 11:42 01/06/18 11:42 01/06/18 11:42 01/06/18 11:42 Intake & Output 01/05/18 01/06/18 01/07/18 00:59 00:59 00:59 Intake Total 237 90 Output Total 450 Balance -213 90 Weight 74.7 kg Results Laboratory Results: 01/06/18 04:43 TSH 5.89 H Impressions: Chest/Abdomen CTA 01/04/18 17:22 IMPRESSION: 1. There is no evidence of pulmonary emboli. 2. Centrilobular emphysema. Subsegmental atelectasis. Small pleural effusions. Calcified pleural plaques. Assessment & Plan - Diagnosis (1) Paroxysmal atrial flutter Is this a current diagnosis for this admission?: Yes Plan: improved rate controlled continue management as per Dr Chacon (2) COPD (chronic obstructive pulmonary disease) Qualifiers: COPD type: unspecified COPD Qualified Code(s): J44.9 - Chronic obstructive pulmonary disease, unspecified Is this a current diagnosis for this admission?: Yes (3) Hyperlipidemia Qualifiers: Hyperlipidemia type: unspecified Qualified Code(s): E78.5 - Hyperlipidemia , unspecified Is this a current diagnosis for this admission?: Yes (4) Alcohol withdrawal Qualifiers: Complication of substance-induced condition: with delirium Qualified Code(s ): F10.231 - Alcohol dependence with withdrawal delirium Is this a current diagnosis for this admission?: Yes Plan: continue ativan PRN Thiamine CT brain no contrast (5) Elevated TSH Is this a current diagnosis for this admission?: Yes Plan: ? subclinical hypothyroidism would not treat at this time T3-T4 normal thyroid studies to be repeated in 1 month - Time Time Spent with patient: 25-34 minutes
--- NOTE | 2018-01-06 14:37 | RADIOLOGY REPORT (SQ) ---
EXAM DESCRIPTION: CT HEAD WITHOUT COMPLETED DATE/TIME: 01/06/2018 2:27 pm REASON FOR STUDY: AMS COMPARISON: Carotid Doppler same date CT angio chest 01/04/2018 TECHNIQUE: Axial images acquired through the brain without intravenous contrast. Images reviewed wi th bone, brain and subdural windows. Additional sagittal and coronal reconstructions were generated. Images stored on PACS. All CT scanners at this facility use dose modulation, iterative reconstruction, and/or weight based d osing when appropriate to reduce radiation dose to as low as reasonably achievable (ALARA). [facility]: Dose Right [facility]: CareDose [facility]: Dose Right [facility]: Teradose 4D [facility]: Cellartis RADIATION DOSE: CT Rad equipment meets quality standard of care and radiation dose reduction techniq ues were employed. CTDIvol: 48.7 mGy. DLP: 1004 mGy-cm. mGy. LIMITATIONS: None. FINDINGS: VENTRICLES: Normal size and contour. CEREBRUM: No masses. No hemorrhage. No midline shift. No evidence for acute infarction. Moderate d iffuse low attenuation throughout the hemispheric white matter from chronic small vessel ischemic alexi nge. CEREBELLUM: No masses. No hemorrhage. No alteration of density. No evidence for acute infarction. EXTRAAXIAL SPACES: No fluid collections. No masses. ORBITS AND GLOBE: No intra- or extraconal masses. Normal contour of globe without masses. CALVARIUM: No fracture. PARANASAL SINUSES: No fluid or mucosal thickening. SOFT TISSUES: No mass or hematoma. OTHER: No other significant finding. IMPRESSION: Moderate chronic white matter disease in the hemispheres. No CT evidence of large territory acute ischemic change, acute intracranial hemorrhage, mass effect, or midline shift EVIDENCE OF ACUTE STROKE: NO. COMMENT: Quality ID # [id number]: Final reports with documentation of one or more dose reduction techniques (e.g., Automated exposure control, adjustment of the mA and/or kV according to patient size, use of iterative reconstruction technique) TECHNICAL DOCUMENTATION: JOB ID: [id number] [place] [email or web address]- All Rights Reserved Reading location - IP/workstation name: [facility]
[2018-01-06] MEDS: THIAMINE HCL INJ 200 MG/2 ML VIAL IM SCH (17:05)
[2018-01-06] MEDS ORDERED: DIGOXIN INJ 0.5 MG/2 ML AMPULE IV ONE (18:00)
--- NOTE | 2018-01-06 20:25 | PROGRESS NOTE E ---
Progress Note NAME: JUANITA ROACH : 1935 AGE: 82Y DATE: 01/06/2018 ROOM: 308 SUBJECTIVE: Note that the patient's heart rate has been controlled. He is being off the IV Cardizem drip and he is on p.o. Cardizem and also on digoxin p.o. He is also on Lovenox at 1 mg/kg subcutaneously q.12 hours. The patient subsequently spoke to the son, says the patient is very agitated and looks like the patient is having alcohol withdrawal with delirium tremens. This was discussed with the son and the son states that the patient has a heavy alcohol abuse disorder. At present the patient is in soft restraints but his heart rate is holding and the patient is able to take by mouth. Although the patient is agitated he does not seem to be having any chest pain but the problem is the patient is very agitated and confused due to his alcohol withdrawal and hence currently there are no pauses or bradycardia and there are no AV blocks of significance and there are no ventricular arrhythmias. OBJECTIVE: GENERAL: The patient at present is agitated. He is well-built and well-nourished. VITAL SIGNS: He is afebrile with a temperature of 98.3 degrees Fahrenheit, pulse is 72 beats per minute, blood pressure 128/73, respirations are 18 per minute, O2 saturations are 99% on 4 liters nasal cannula. HEENT: Head is atraumatic, normocephalic. Eyes: Pupils are equal, round, regular, reactive to light. Ears, nose, and throat are negative. NECK: Supple. There is no JVD. Carotids are equal. There is no bruit. There is no lymphadenopathy. There is no goiter. Trachea is central. LUNGS: Show diminished air entry and prolonged expiration without any rhonchi, rales, or wheezing. There is no chest wall tenderness. HEART: S1, S2 is heard. S1 is of variable intensity. There is no S3 gallop. There is no S4 gallop. There is a systolic murmur in the left sternal border and the apex. There is no rub. ABDOMEN: Soft, nontender. There is no hepatosplenomegaly. Bowel sounds are well heard. EXTREMITIES: Femorals are diminished. Leg pulses are diminished. There is no pedal edema. There is no DVT or cyanosis. There is no cellulitis. CENTRAL NERVOUS SYSTEM: The patient is confused and delirious, but moves all 4 extremities. PSYCHIATRIC: The patient is agitated due to his alcohol withdrawal. INTAKE/OUTPUT: The patient's 24 hour intake is 481 mL, output is 450 mL. I am not sure if this is accurate. DIAGNOSTICS: The patient's head CT shows moderate chronic white matter disease No CT evidence of large territory acute ischemic change or acute intracranial hemorrhage or mass effect or midline shift. The patient's EKG shows atrial flutter with a ventricular response of 58, low voltage in the precordial leads. The patient's LV ejection fraction is within normal limits. There is mild to moderate mitral regurgitation. There is aortic sclerosis without any significant stenosis. This has been discussed with the patient's son. The patient's vitamin B12 is 294. His TSH came back at 5.89. IMPRESSION: 1. HISTORY OF ALCOHOL ABUSE. 2. ALCOHOL WITHDRAWAL/DELIRIUM TREMENS. The patient is being on anti-alcohol withdrawal medication. 3. ATRIAL FLUTTER WITH VENTRICULAR RESPONSE NOW CONTROLLED. Continue Cardizem and continue digoxin. In the case that the patient's heart rate goes up in view of the patient's alcohol withdrawal and the patient's agitation, then would see if in spite of IV digoxin the patient would require being put back on IV Cardizem drip. 4. CORONARY ARTERY DISEASE, HISTORY OF STENT IN UNKNOWN VESSEL. No anginal symptoms. 5. HYPERTENSION, WELL-CONTROLLED. 6. COPD WITHOUT ANY EXACERBATIONS, APPEARS TO BE AT BASELINE. 7. HYPERLIPIDEMIA. 8. GERD. RECOMMENDATION: 1. Continue digoxin. 2. Continue Cardizem. 3. Continue on Lovenox for now, later would see if the patient can be put on chronic anticoagulation if the patient comes out of his alcohol withdrawal. Discussed with the son the different options of anticoagulation, Coumadin. In view of the patient's history of alcoholism unless the patient refrains from alcohol, I have discussed with the son that the patient would be at high risk for chronic anticoagulation. The various anticoagulation regimens have been discussed with the patient including Coumadin and the new oral anticoagulation agents. The risks and benefits of each have been discussed. In view of the patient's age and the patient most likely being noncompliant and need for restrictions which the patient surely would not adhere, Coumadin may not be a good choice as the other medications such as Eliquis in a small dose in view of the patient's age. But I have also discussed with the son that if the patient should bleed and if the patient is on Coumadin the PT/INR can be reversed with fresh frozen plasma and vitamin K, but if he should bleed on the newer anticoagulation agents then there is no antidote for it and we have to give only supportive care. The son states that he will be successful in getting the patient to stop alcohol intake. TIME SPENT: Note 40 minutes spent on this patient with more than 50% of the time spent on direct patient care. His medications have been reviewed and adjusted. We will watch the patient for any increase in his heart rate. Note also discussed option that the patient may later on after 4-6 weeks of anticoagulant if he refrains from drinking alcohol then would see if he is a candidate for atrial flutter ablation. Medical decision making is of high complexity in view of the patient's alcohol withdrawal and the pros and cons of placing the patient on chronic anticoagulation with discussions of the same with the patient's family, especially the patient's son. Also discussed with the hospitalist taking care of the patient. Echo was discussed with them. We will follow with you. DICTATING PHYSICIAN: YADI ACEVES M.D. 5020M 1999 MICHAEL#: [id number] ID: [id number] JOB#: [id number] ACCT: [id number] cc: > MTDD
[2018-01-07] MEDS: DILTIAZEM HCL/D5W 125 MG/125 ML RTUINJ IV PRN ×3 (01:15→17:14)
[2018-01-07] MEDS: LEVALBUTEROL HCL NEB 0.63 MG/3 ML AMPUL NEB SCH ×4 (02:27→19:45)
[2018-01-07] MEDS: LANSOPRAZOLE 30 MG TAB.RAP.DR PO SCH (05:28)
[2018-01-07] MEDS ORDERED: CYANOCOBALAMIN (VITAMIN B-12) INJ 1000 MCG/1 ML VIAL IM ONE (06:45)
[2018-01-07 09:42] LABS: ANION GAP 13 (5-19); BLOOD UREA NITROGEN 12 mg/dL (7-20); CALCIUM 8.6 mg/dL (8.4-10.2); CARBON DIOXIDE 24 mmol/L (22-30); CHLORIDE 105 mmol/L (98-107); GLUCOSE 87 mg/dL (75-110); PHOSPHORUS 3.5 mg/dL (2.5-4.5); SODIUM 142.4 mmol/L (137-145)
[2018-01-07] MEDS: GUAIFENESIN 600 MG TABLET.SA PO SCH ×2 (09:42→17:14)
[2018-01-07] MEDS: DIGOXIN 0.125 MG TABLET PO SCH (09:42)
[2018-01-07] MEDS: ENOXAPARIN SODIUM INJ 80 MG/0.8 ML DISP.SYRIN SUBCUT SCH ×2 (09:42→21:14)
[2018-01-07] MEDS: ACETAMINOPHEN 325 MG TABLET PO PRN ×2 (11:47→18:29)
--- NOTE | 2018-01-07 15:04 | XCELERA REPORT ---
[address] [address] Transthoracic Echocardiogram Report Name: JUANITA ROACH Age: 82 yrs Gender: Male : 1935 Patient Status: Inpatient Patient Location: [address] [place] [address] Study Date: 01/06/2018 08:16 AM Height: 66 in Weight: 170 lb BSA: 1.9 m2 Procedure: A two-dimensional transthoracic echocardiogram with color flow Doppler was performed. The study was technically limited with all images being suboptimal in quality. Reason For Study: Atrial Flutter / CAD History: Atrial Flutter / CAD. Ordering Physician: ELLEN ACEVES Performed By: Letha Tatum Interpretation Summary The left ventricle is normal in size. There is mild asymmetric left ventricular hypertrophy. No BAN or LVOT obstruction.No 'YADIRA' of the Mitral Valve, hence no HOCM or IHSS. Left ventricular systolic function is normal. LV EF is 65% The left ventricular wall motion is normal. LV diastolic function not assessed. There is no thrombus. The right ventricle is grossly normal size. The left atrial size is normal. There is no evidence of mitral valve prolapse. There is no mitral valve stenosis. There is a mild amount of mitral regurgitation There is mild aortic stenosis There is a peak gradient of 18 mm of Hg. There is a mild amount of aortic regurgitation There is no tricuspid stenosis. There is a mild amount of tricuspid regurgitation There is mild pulmonary hypertension by echo RVSP is 37 mm of Hg , with RA mean of 10. There is no pericardial effusion. MMode/2D Measurements & Calculations RVDd: 3.5 cm LVIDd: 5.2 cm FS: 41.6 % Ao root diam: IVSd: 1.4 cm LVIDs: 3.0 cm EDV(Teich): 129.3 ml 3.6 cm LVPWd: 1.2 cm ESV(Teich): 35.9 ml Ao root area: EF(Teich): 72.2 % 10.2 cm2 LA dimension: 2.7 cm LVOT diam: LVLd ap4: 7.6 cm SV(MOD-sp4): 36.0 ml 1.9 cm EDV(MOD-sp4): LA A2Cs: 18.9 cm2 LVOT area: 64.0 ml LVLs ap4: 6.8 cm 2.7 cm2 ESV(MOD-sp4): 28.0 ml EF(MOD-sp4): 56.3 % LA A4Cs: LA length: 5.6 cmLA Vol Index (BP): LA Volume: 46.9 ml 16.2 cm2 25.1 ml/m2 Doppler Measurements & Calculations MV E max tae: MV P1/2t max tae: Ao V2 max: AI max tae: 106.4 cm/sec 118.1 cm/sec 211.2 cm/sec 423.5 cm/sec MV P1/2t: 105.7 msec Ao max PG: AI max PG: MVA(P1/2t): 2.1 cm2 17.9 mmHg 71.7 mmHg MV dec slope: Ao V2 mean: AI dec slope: 150.5 cm/sec 279.6 cm/sec2 327.3 cm/sec2 Ao mean PG: AI P1/2t: MV dec time: 10.3 mmHg 443.6 msec 0.15 sec Ao V2 VTI: 45.6 cm SARY(V,D): 0.92 cm2 LV V1 max PG: PA V2 max: TR max tae: 2.0 mmHg 72.6 cm/sec 260.6 cm/sec LV V1 max: PA max P.1 mmHg TR max P.6 cm/sec 27.2 mmHg Left Ventricle The left ventricle is normal in size. There is mild asymmetric left ventricular hypertrophy. No BAN or LVOT obstruction.No 'YADIRA' of the Mitral Valve, hence no HOCM or IHSS. Left ventricular systolic function is normal. LV EF is 65%. LV diastolic function not assessed. The left ventricular wall motion is normal. There is no thrombus. There is no ventricular septal defect visualized. Right Ventricle The right ventricle is grossly normal size. Atria The right atrium is normal. The left atrial size is normal. The interatrial septum is intact with no evidence for an atrial septal defect. Mitral Valve There is no evidence of mitral valve prolapse. There is no vegetation seen on the mitral valve. There is no mitral valve stenosis. There is a mild amount of mitral regurgitation. Aortic Valve There is no aortic valvular vegetation. There is mild aortic stenosis. There is a peak gradient of 18 mm of Hg. There is a mild amount of aortic regurgitation. Tricuspid Valve There is no tricuspid stenosis. There is a mild amount of tricuspid regurgitation. There is mild pulmonary hypertension by echo. RVSP is 37 mm of Hg , with RA mean of 10. Pulmonic Valve There is no pulmonic valvular stenosis. There is no pulmonic valvular regurgitation. Great Vessels The aortic root is normal size. Effusions There is no pericardial effusion. : ELLEN ACEVES > Ellen Aceves
--- NOTE | 2018-01-07 15:42 | PDOC PROGRESS REPORT ---
Subjective Progress Note for:: 01/07/18 Subjective:: 82/ male past medical history of GERD Hypertension Hyperlipidemia COPD presented with A flutter and was started on a Cardizem gtt and Lovenox. No complaints at present. Reason For Visit: PAROXYSMAL ATRIAL FLUTTER Physical Exam Vital Signs: Temp Pulse Resp BP Pulse Ox 97.5 F 72 18 129/70 H 96 01/07/18 11:41 01/07/18 15:00 01/07/18 13:46 01/07/18 15:00 01/07/18 15:24 Intake & Output 01/06/18 01/07/18 01/08/18 06:59 06:59 06:59 Intake Total 237 650 Output Total 450 100 Balance -213 550 Weight 74.7 kg 72.4 kg General appearance: PRESENT: no acute distress Head exam: PRESENT: normocephalic Ear exam: PRESENT: normal external ear exam Mouth exam: PRESENT: moist Neck exam: ABSENT: tracheal deviation Respiratory exam: PRESENT: symmetrical. ABSENT: wheezes Cardiovascular exam: PRESENT: RRR GI/Abdominal exam: PRESENT: normal bowel sounds, soft. ABSENT: tenderness Rectal exam: PRESENT: deferred Extremities exam: ABSENT: pedal edema Neurological exam: PRESENT: alert, awake Psychiatric exam: PRESENT: appropriate affect Skin exam: ABSENT: petechiae Results Laboratory Results: 01/07/18 08:55 01/06/18 01/07/18 15:44 08:55 Sodium 142.4 Potassium 4.0 Chloride 105 Carbon Dioxide 24 Anion Gap 13 BUN 12 Creatinine 0.82 Est GFR ( Amer) > 60 Est GFR (Non-Af Amer) > 60 Glucose 87 Calcium 8.6 Phosphorus 3.5 Magnesium 2.0 Vitamin B12 294.0 Impressions: Chest/Abdomen CTA 01/04/18 17:22 IMPRESSION: 1. There is no evidence of pulmonary emboli. 2. Centrilobular emphysema. Subsegmental atelectasis. Small pleural effusions. Calcified pleural plaques. Head CT 01/06/18 13:45 IMPRESSION: Moderate chronic white matter disease in the hemispheres. No CT evidence of large territory acute ischemic change, acute intracranial hemorrhage, mass effect, or midline shift EVIDENCE OF ACUTE STROKE: NO. Assessment & Plan - Diagnosis (1) Paroxysmal atrial flutter Is this a current diagnosis for this admission?: Yes Plan: On Cardizem gtt, Digoxin and Lovenox s/c Monitor and replete electrolytes. cardiology input appreciated. (2) COPD (chronic obstructive pulmonary disease) Qualifiers: COPD type: unspecified COPD Qualified Code(s): J44.9 - Chronic obstructive pulmonary disease, unspecified Is this a current diagnosis for this admission?: Yes Plan: Stable, continue outpatient inhalers (3) Hyperlipidemia Qualifiers: Hyperlipidemia type: unspecified Qualified Code(s): E78.5 - Hyperlipidemia , unspecified Is this a current diagnosis for this admission?: Yes Plan: On Statin (4) Hypertension Is this a current diagnosis for this admission?: Yes Plan: Lisinopril on Hold. Continue to monitor - Time Time Spent with patient: 35 or more minutes
[2018-01-07] MEDS: THIAMINE HCL INJ 200 MG/2 ML VIAL IM SCH (17:14)
[2018-01-07] MEDS ORDERED: BISACODYL 5 MG TABEC PO ONE (17:47)
[2018-01-07] MEDS: DOCUSATE SODIUM 100 MG CAPSULE PO SCH (18:29)
[2018-01-07] MEDS ORDERED: DILTIAZEM HCL 30 MG TABLET PO ONE (19:30)
[2018-01-07] MEDS: LORAZEPAM INJ 2 MG/1 ML VIAL IV PRN ×2 (20:25→23:44)
[2018-01-07] MEDS: ATORVASTATIN CALCIUM 20 MG TABLET PO SCH (21:14)
[2018-01-07] MEDS: FLUTICASONE/SALMETEROL DISKUS 500-50 MCG/DOSE IH SCH (21:14)
[2018-01-07] MEDS ORDERED: HALOPERIDOL LACTATE INJ 5 MG/1 ML VIAL IM ONE (22:15)
--- NOTE | 2018-01-07 22:54 | PROGRESS NOTE E ---
Progress Note NAME: JUANITA SNOWDEN : 1935 AGE: 82Y DATE: 01/07/2018 ROOM: 308 SUBJECTIVE: Note that the patient is less agitated today and he seems to be a little more alert. He is off of restraints and he is not fighting or delirious. His heart rate is 91 beats per minute, he is still in atrial flutter. Yesterday evening his heart rate went up to 146 and, hence, he was started back on the Cardizem drip. At present the patient denies any chest pain or discomfort. There is no leg edema. There is no PND, orthopnea. There is no evidence of TIA or CVA symptoms. There are no anginal symptoms. There is no bleeding on the current medication. His head CT showed no acute abnormalities and no evidence of intracranial hemorrhage. OBJECTIVE: GENERAL: On examination the patient is well-built and well-nourished. At present in no acute distress. He is well-groomed. VITAL SIGNS: He is afebrile with a temperature of 97.5 degrees Fahrenheit, pulse is 91 beats per minute, blood pressure is 120/59, respirations are 16 per minute, O2 saturations are 99% on 4 liters nasal cannula. HEENT: Head is atraumatic, normocephalic. Eyes: Pupils are equal, round, regular, reactive to light and accommodation. Extraocular movements are normal. ENT is negative. NECK: Supple. There is no JVD. Carotids are equal. There is no bruit. There is no lymphadenopathy. There is no goiter. Trachea is central. LUNGS: Show diminished air entry and prolonged expiration without any rhonchi, rales, or wheezing. There is no chest wall tenderness. On percussion there is hyperresonance all over the lung corona. HEART: S1, S2 is heard. S1 is of variable intensity. There is no S3 gallop. There is no S4 gallop. There is a systolic murmur in the left sternal border and the apex. There is no rub. ABDOMEN: Soft, nontender. There is no hepatosplenomegaly. Bowel sounds are well heard. EXTREMITIES: Femorals are diminished. Leg pulses are diminished. There is no pedal edema. There is no DVT or cyanosis. There is no cellulitis. There is no clubbing. CENTRAL NERVOUS SYSTEM: The patient is conscious. He is much less confused and he is not delirious. He moves all 4 extremities. PSYCHIATRIC: The patient appears to be calm today. INTAKE/OUTPUT: The patient's 24 hour intake and output does not appear to be accurate. DIAGNOSTICS: The patient's repeat TSH shows a TSH of 5.89. His B12 is 294. The patient's sodium is 142.4, potassium 4.0, chloride is 105, CO2 is 24. The patient's BUN is 12, creatinine 0.82, GFR is greater than 60. His glucose is 87. His calcium is 8.6, phosphorus is 3.5, magnesium is 2.0. IMPRESSION: 1. HISTORY OF ALCOHOL ABUSE. 2. ALCOHOL WITHDRAWAL/DELIRIUM TREMENS. These are much better. The patient almost out of alcohol withdrawal. 3. ATRIAL FLUTTER WITH VENTRICULAR RESPONSE NOW CONTROLLED ON IV CARDIZEM. Note that the patient needs chronic anticoagulant therapy. Initially the patient told me that he was on blood thinners and this had to be stopped due to bleeding. After I discussed with the patient's son, the son did talk to the patient and apparently the patient meant that his had GI bleed while on anticoagulation which was stopped and not him. The patient has never been on anticoagulation. Hence, once the patient is on p.o. Cardizem we will then start the patient on probably Eliquis at 2.5 mg p.o. b.i.d. The risks and benefits and bleeding complications have been discussed with the patient and also the patient's son, Mr. Iftikhar SnowdenJr. 4. CORONARY ARTERY DISEASE, HISTORY OF STENT IN UNKNOWN VESSEL. No anginal symptoms. 5. HYPERTENSION, WELL-CONTROLLED. 6. COPD WITHOUT EXACERBATION. 7. HYPERLIPIDEMIA. 8. GERD. RECOMMENDATION: 1. Continue digoxin. 2. Continue Cardizem IV infusion now and later when the heart is much better controlled then would recommend the patient be placed on p.o. Cardizem. Initially on a short-acting Cardizem which can later be changed to a long-acting one. 3. Continue Lovenox for now at 1 mg/kg subcutaneously q.12 hours and then switch to Eliquis, most likely tomorrow. Discussed with the son. Discussed with the patient. Note, medical decision making is still of moderate to high complexity. In view of the decision to control the patient's heart rate requiring change in medical regimen and also discussions of anticoagulation with the patient and the patient's son. TIME SPENT: Note 35 minutes spent on the patient with more than 50% of the time spent on direct patient care. Discussed with the patient's son about the patient's negative CT of the head done yesterday. Also discussed with the hospitalist taking care of the patient. Will follow with you. Note his medications have been reviewed. DICTATING PHYSICIAN: YADI ACEVES M.D. [id number] PHY#: [id number] ID: [id number] JOB#: [id number] ACCT: [id number] cc: >
[2018-01-08 01:25] LABS: APPEARANCE,URINE CLEAR; BILIRUBIN,URINE NEGATIVE (NEGATIVE); COLOR,URINE YELLOW; GLUCOSE, URINE NEGATIVE (NEGATIVE); KETONES,URINE NEGATIVE (NEGATIVE); LEUKOCYTE ESTERASE,URINE NEGATIVE (NEGATIVE); NITRITE,URINE NEGATIVE (NEGATIVE); PROTEIN,URINE NEGATIVE (NEGATIVE); URINE SPECIFIC GRAVITY 1.021; UROBILINOGEN,URINE NEGATIVE mg/dL (<2.0)
[2018-01-08] MEDS: LORAZEPAM INJ 2 MG/1 ML VIAL IV PRN ×4 (01:58→22:14)
[2018-01-08] MEDS: LEVALBUTEROL HCL NEB 0.63 MG/3 ML AMPUL NEB SCH ×4 (02:16→19:41)
[2018-01-08] MEDS: LANSOPRAZOLE 30 MG TAB.RAP.DR PO SCH (05:59)
[2018-01-08] MEDS ORDERED: DILTIAZEM HCL 30 MG TABLET PO SCH (06:00)
[2018-01-08] MEDS ORDERED: (PENDING PHARMACY ID) (Tiotropium Bromide [Spiriva Respimat] 2 PUFF) PO SCH (10:00)
[2018-01-08] MEDS ORDERED: DILTIAZEM HCL 30 MG TABLET PO ONE (10:00)
[2018-01-08] MEDS: CYANOCOBALAMIN (VITAMIN B-12) INJ 1000 MCG/1 ML VIAL IM SCH (10:17)
[2018-01-08] MEDS: ENOXAPARIN SODIUM INJ 80 MG/0.8 ML DISP.SYRIN SUBCUT SCH ×2 (10:17→21:08)
[2018-01-08] MEDS: DIGOXIN 0.125 MG TABLET PO SCH (10:27)
[2018-01-08] MEDS: FLUTICASONE/SALMETEROL DISKUS 500-50 MCG/DOSE IH SCH ×2 (10:30→21:08)
[2018-01-08] MEDS: GUAIFENESIN 600 MG TABLET.SA PO SCH ×2 (10:30→17:35)
[2018-01-08] MEDS: LORAZEPAM 1 MG TABLET PO SCH ×4 (11:24→21:08)
--- NOTE | 2018-01-08 12:06 | PDOC PROGRESS REPORT ---
Subjective Progress Note for:: 01/08/18 Subjective:: 82 year old gentleman with a past medical history of GERD Hypertension Hyperlipidemia COPD on 4L O2 NC at home He presented with A flutter and was started on a Cardizem gtt and Lovenox. He reportedly drinks 4-5 beers a day. He had been very agitated and attempting to remove IV and telemonitor leads overnight so required soft limb restraints. The patient has been receiving IV Ativan for signs and symptoms of alcohol withdrawal. Cardizem gtt was switched to PO early this morning. Cardizem dose was adjusted for better heart rate control. Reason For Visit: PAROXYSMAL ATRIAL FLUTTER Physical Exam Vital Signs: Temp Pulse Resp BP Pulse Ox 97.5 F 146 H 20 131/82 H 100 01/08/18 10:52 01/08/18 10:52 01/08/18 10:52 01/08/18 10:52 01/08/18 10:52 Intake & Output 01/07/18 01/08/18 01/09/18 06:59 06:59 06:59 Intake Total 650 560 50 Output Total 100 100 Balance 550 460 50 Weight 72.4 kg 75.6 kg General appearance: PRESENT: no acute distress Head exam: PRESENT: normocephalic Eye exam: ABSENT: scleral icterus Ear exam: PRESENT: normal external ear exam Mouth exam: PRESENT: moist Respiratory exam: PRESENT: rhonchi, symmetrical, unlabored Cardiovascular exam: PRESENT: tachycardia GI/Abdominal exam: PRESENT: normal bowel sounds, soft. ABSENT: tenderness Rectal exam: PRESENT: deferred Gentrourinary exam: ABSENT: indwelling catheter Extremities exam: ABSENT: pedal edema Skin exam: ABSENT: petechiae Results Laboratory Results: 01/07/18 08:55 01/07/18 22:00 Urine Color YELLOW Urine Appearance CLEAR Urine pH 5.0 Ur Specific Brewster 1.021 Urine Protein NEGATIVE Urine Glucose (UA) NEGATIVE Urine Ketones NEGATIVE Urine Blood SMALL H Urine Nitrite NEGATIVE Ur Leukocyte Esterase NEGATIVE Urine WBC (Auto) 1 Urine RBC (Auto) 1 Impressions: Chest/Abdomen CTA 01/04/18 17:22 IMPRESSION: 1. There is no evidence of pulmonary emboli. 2. Centrilobular emphysema. Subsegmental atelectasis. Small pleural effusions. Calcified pleural plaques. Head CT 01/06/18 13:45 IMPRESSION: Moderate chronic white matter disease in the hemispheres. No CT evidence of large territory acute ischemic change, acute intracranial hemorrhage, mass effect, or midline shift EVIDENCE OF ACUTE STROKE: NO. Assessment & Plan - Diagnosis (1) Paroxysmal atrial flutter Is this a current diagnosis for this admission?: Yes Plan: Continue PO Cardizem, Digoxin and Lovenox s/c Monitor and replete electrolytes. (2) COPD (chronic obstructive pulmonary disease) Qualifiers: COPD type: unspecified COPD Qualified Code(s): J44.9 - Chronic obstructive pulmonary disease, unspecified Is this a current diagnosis for this admission?: Yes Plan: Stable, continue outpatient inhalers (3) Hyperlipidemia Qualifiers: Hyperlipidemia type: unspecified Qualified Code(s): E78.5 - Hyperlipidemia , unspecified Is this a current diagnosis for this admission?: Yes Plan: On Statin (4) Hypertension Is this a current diagnosis for this admission?: Yes Plan: Lisinopril on Hold. Continue to monitor - Time Time Spent with patient: 35 or more minutes
[2018-01-08] MEDS: DOCUSATE SODIUM 100 MG CAPSULE PO SCH ×2 (14:36→17:33)
--- NOTE | 2018-01-08 17:30 | RADIOLOGY REPORT (SQ) ---
EXAM DESCRIPTION: CT HEAD WITHOUT COMPLETED DATE/TIME: 01/08/2018 5:14 pm REASON FOR STUDY: R/O CVA COMPARISON: 01/06/2018 TECHNIQUE: Axial images acquired through the brain without intravenous contrast. Images reviewed wi th bone, brain and subdural windows. Additional sagittal and coronal reconstructions were generated. Images stored on PACS. All CT scanners at this facility use dose modulation, iterative reconstruction, and/or weight based d osing when appropriate to reduce radiation dose to as low as reasonably achievable (ALARA). [facility]: Dose Right [facility]: CareDose [facility]: Dose Right [facility]: Teradose 4D [facility]: [employer] RADIATION DOSE: CT Rad equipment meets quality standard of care and radiation dose reduction techniq ues were employed. CTDIvol: 53.2 mGy. DLP: 991 mGy-cm.mGy. LIMITATIONS: None. FINDINGS: VENTRICLES: Prominent. CEREBRUM: No masses. No hemorrhage. No midline shift. Areas of low density in the white matter mos t likely due to chronic micro-vascular ischemic change. No evidence for acute infarction. CEREBELLUM: No masses. No hemorrhage. No alteration of density. No evidence for acute infarction. EXTRAAXIAL SPACES: Age-related involutional change. No fluid collections. No masses. ORBITS AND GLOBE: No intra- or extraconal masses. Normal contour of globe without masses. CALVARIUM: No fracture. PARANASAL SINUSES: No fluid or mucosal thickening. SOFT TISSUES: No mass or hematoma. OTHER: No other significant finding. IMPRESSION: CHRONIC CHANGES OF ATROPHY AND MICROVASCULAR ISCHEMIA. NO CT EVIDENCE OF ACUTE INTRACRA NIAL HEMORRHAGE OR LARGE TERRITORY ACUTE ISCHEMIA. EVIDENCE OF ACUTE STROKE: NO. TECHNICAL DOCUMENTATION: JOB ID: [id number] Quality ID # [id number]: Final reports with documentation of one or more dose reduction techniques (e.g., Au tomated exposure control, adjustment of the mA and/or kV according to patient size, use of iterative reconstruction technique) 2010 [employer]- All Rights Reserved Reading location - IP/workstation name: [email or web address]
[2018-01-08] MEDS: THIAMINE HCL INJ 200 MG/2 ML VIAL IM SCH (17:32)
[2018-01-08] MEDS: DILTIAZEM HCL 30 MG TABLET PO SCH ×2 (17:41→21:08)
[2018-01-08] MEDS: ATORVASTATIN CALCIUM 20 MG TABLET PO SCH (21:08)
--- NOTE | 2018-01-08 22:05 | PROGRESS NOTE E ---
Progress Note NAME: JUANITA ROACH : 1935 AGE: 82Y DATE: 01/08/2018 ROOM: 308 SUBJECTIVE: Note that the patient again had symptoms of alcohol withdrawal and regurgitated. He is sedated with Ativan. Earlier, his heart rate was 122 beats per minute, and prior to that, was 146 beats per minute. His p.o. medications have been increased. At present, the patient is sedated and is in soft restraints, but appears to be well-sedated. No other history available. No ventricular arrhythmia is seen on the monitor. There is no AV block. The nurse states that the patient can be awakened and then he has no difficulty taking his medications and no problems swallowing. OBJECTIVE: VITAL SIGNS: On examination at present, the patient is afebrile, with a temperature of 97.5 degrees Fahrenheit. His pulse at present is 73 beats per minute. Blood pressure was 131/82, respirations are 20 per minute. O2 sats are 100% on 3 liters nasal cannula. HEENT: Head is atraumatic, normocephalic. Eyes: Pupils are equal, round, regular, reactive to light. ENT: Not examined, since the patient is sedated and will not cooperate. NECK: Supple. There is no JVD. Carotids are equal. There is no bruit. There is no goiter. There is no lymphadenopathy. Trachea is central. LUNGS: Show diminished air entry, prolonged expiration, with scattered rhonchi. No rales or CHF. HEART: S1, S2 are heard. S1 is of variable intensity. There is no S3 gallop. There is no S4 gallop. There is a systolic murmur in the left sternal border, at the apex. There is no rub. ABDOMEN: Soft and nontender. There is no hepatosplenomegaly. Bowel sounds are well-heard. There are no tender areas or masses. EXTREMITIES: Femorals are diminished. There are no femoral bruits. Leg pulses are diminished. There is no pedal edema. There is no DVT or cyanosis. There is no cellulitis. There is no clubbing. BROACH SETTER: Not examined. The patient is noted to move all 4 extremities, even in his sedated state. PSYCHIATRIC: Not examined. DIAGNOSTICS: The patient had a head CT again, which showed chronic changes of atrophy and microvascular ischemia. No CT evidence of acute intracranial hemorrhage or large territory acute ischemia. No evidence of a stroke. Note, no labs done today. IMPRESSION: 1. ALCOHOL WITHDRAWAL/DELIRIUM TREMENS. Patient being managed as per protocol with Ativan. 2. HISTORY OF ALCOHOL ABUSE. 3. ATRIAL FLUTTER WITH, AT PRESENT, VENTRICULAR RESPONSE CONTROLLED ON P.O. CARDIZEM, THE DOSE OF WHICH HAS BEEN INCREASED. 4. CORONARY ARTERY DISEASE WITH STENT IN UNKNOWN VESSEL. No anginal symptoms. 5. HYPERTENSION, WELL-CONTROLLED. 6. CHRONIC OBSTRUCTIVE PULMONARY DISEASE, WITHOUT EXACERBATION. 7. HYPERLIPIDEMIA. 8. GERD. RECOMMENDATIONS: 1. Continue to use oxygen. 2. Continue Cardizem at 60 mg p.o. q.6 hours. 3. Continue Lovenox at 1 mg/kg subcutaneously q.12 hours. 4. Continue Xopenex treatment p.r.n. 5. Continue Atorvastatin. 6. Continue digoxin. Will recheck the patient's digoxin in the a.m. 7. Continue atorvastatin. Note, 30 minutes spent on the patient, with more than 50% of the time spent in direct patient care. His medications have been reviewed. Labs ordered; that is, digoxin level ordered for the morning. Medical decision-making is of moderate complexity. Case discussed with other caregiving providers, including the attending physician on the case. Later, once the patient's alcohol withdrawal subsides/resolves, then would start the patient on an oral anticoagulation agent. DICTATING PHYSICIAN: YADI ACEVES M.D. [id number] ROMEOY#: [id number] ID: [id number] JOB#: [id number] ACCT: [id number] cc: > [facility]
[2018-01-08] MEDS ORDERED: METOPROLOL TARTRATE PF/INJ 5 MG/5 ML SDV IV ONE ×2 (22:43→23:00)
[2018-01-09] MEDS ORDERED: DILTIAZEM HCL INJ 25 MG/5 ML VIAL ONE (00:20)
[2018-01-09] MEDS: DILTIAZEM HCL/D5W 125 MG/125 ML RTUINJ IV PRN ×3 (00:30→19:28)
[2018-01-09] MEDS: LEVALBUTEROL HCL NEB 0.63 MG/3 ML AMPUL NEB SCH ×4 (02:14→19:42)
[2018-01-09] MEDS: DILTIAZEM HCL 30 MG TABLET PO SCH ×4 (03:03→20:36)
[2018-01-09] MEDS: LORAZEPAM INJ 2 MG/1 ML VIAL IV PRN (03:03)
[2018-01-09] MEDS ORDERED: DILTIAZEM HCL/D5W 125 MG/125 ML RTUINJ IV ONE (05:03)
[2018-01-09] MEDS: LANSOPRAZOLE 30 MG TAB.RAP.DR PO SCH (05:06)
[2018-01-09 05:27] LABS: HEMATOCRIT 37.5 % (37.9-51.0); HEMOGLOBIN 12.3 g/dL (13.5-17.0); MEAN CORPUSCULAR HEMOGLOBIN 28.5 pg (27.0-33.4); MEAN CORPUSCULAR HGB CONC 32.8 g/dL (32.0-36.0); MEAN CORPUSCULAR VOLUME 87 fl (80-97); PLATELET COUNT 196 10^3/uL (150-450); RED CELL DISTRIBUTION WIDTH 15.4 % (11.5-14.0); WHITE BLOOD COUNT 6.6 10^3/uL (4.0-10.5)
[2018-01-09 05:47] LABS: ANION GAP 15 (5-19); BLOOD UREA NITROGEN 14 mg/dL (7-20); CALCIUM 8.8 mg/dL (8.4-10.2); CARBON DIOXIDE 24 mmol/L (22-30); CHLORIDE 105 mmol/L (98-107); DIGOXIN 0.85 ng/mL (0.8-2.0); GLUCOSE 96 mg/dL (75-110); PHOSPHORUS 3.6 mg/dL (2.5-4.5)
[2018-01-09] MEDS: GUAIFENESIN 600 MG TABLET.SA PO SCH ×2 (09:47→18:49)
[2018-01-09] MEDS: LORAZEPAM 1 MG TABLET PO SCH ×4 (09:47→21:57)
[2018-01-09] MEDS: DOCUSATE SODIUM 100 MG CAPSULE PO SCH ×2 (09:47→18:49)
[2018-01-09] MEDS: ENOXAPARIN SODIUM INJ 80 MG/0.8 ML DISP.SYRIN SUBCUT SCH ×2 (09:48→21:57)
[2018-01-09] MEDS: DIGOXIN 0.125 MG TABLET PO SCH (09:48)
[2018-01-09] MEDS: CYANOCOBALAMIN (VITAMIN B-12) INJ 1000 MCG/1 ML VIAL IM SCH (09:48)
[2018-01-09] MEDS: FLUTICASONE/SALMETEROL DISKUS 500-50 MCG/DOSE IH SCH ×2 (09:49→22:02)
--- NOTE | 2018-01-09 11:44 | PROGRESS NOTE E ---
Progress Note NAME: JUANITA ROACH : 1935 AGE: 82Y DATE: 01/09/2018 ROOM: 308 SUBJECTIVE: The patient seems to be sleeping, but when awakened, he answers questions appropriately and he is oriented to person, time, and place. Today, I do not see any evidence of any withdrawal from alcohol. He denies any chest pain or discomfort. His heart rate did go up to the 130s with the patient not aware of any palpitations. He denies any chest pain or discomfort. There is no shortness of breath. There is no PND or orthopnea. There is no ventricular arrhythmia seen. There is no AV block seen. There are no TIA or CVA symptoms. OBJECTIVE: GENERAL: The patient appears to be well built and well nourished and well groomed. VITAL SIGNS: He was afebrile earlier with a temperature of 97.5 degrees Fahrenheit. At present, his heart rate is 130 beats per minute, blood pressure is 124/56, respirations 20 per minute, O2 saturations 96% on 3 L nasal cannula. HEENT: Head is atraumatic, normocephalic. Eyes: Pupils are equal, round, regular, reactive to light and accommodation. ENT is negative. NECK: Supple. There is no JVD. Carotids are equal. There is no bruit. There is no goiter. There is no lymphadenopathy. Trachea is central. LUNGS: Diminished air entry, prolonged expiration without any rhonchi, rales, or wheezing. HEART: S1, S2 are heard. S1 is of variable intensity. There is no S3 gallop. There is no S4 gallop. There is a systolic murmur in the left sternal border at the apex. There is no rub. ABDOMEN: Soft, nontender. There is no hepatosplenomegaly. Bowel sounds are well heard. There are no tender areas or masses. EXTREMITIES: Femorals are diminished. There is no femoral bruit. Leg pulses are diminished. There is no pedal edema. There is no DVT or cellulitis. There is no cyanosis or clubbing. CENTRAL NERVOUS SYSTEM: The patient is conscious, at present asleep, but easily awakened with no focal deficit. He is oriented x3. PSYCHIATRIC: The patient does not appear to be agitated and there are no signs of alcohol withdrawal or delirium tremens today. LABORATORY: The patient's white count is 6600, hemoglobin is 12.3, hematocrit is 37.5, platelet count is 196,000. His dig level is therapeutic at 0.85. The patient's sodium is 144.0, potassium is 4.0, chloride 105, CO2 is 24. The patient's BUN is 14, creatinine 0.84. GFR is greater than 60. Glucose is 96, his calcium is 8.8, phosphorus is 3.6, and his magnesium is 2.0. IMPRESSION: 1. ALCOHOL WITHDRAWAL/DELIRIUM TREMENS IS PRESENT, SEEMS TO HAVE RESOLVED. 2. HISTORY OF ALCOHOL ABUSE. 3. ATRIAL FLUTTER WITH FAST VENTRICULAR RESPONSE. The patient is on p.o. Cardizem at 60 mg p.o. q. 6 hours, which he has received without missing a dose. The patient is also on Cardizem infusion at 5 mg per hour. Will increase it up to 10 mg per hour. 4. HYPERTENSION, WELL CONTROLLED. 5. COPD WITHOUT EXACERBATION. 6. HYPERLIPIDEMIA. 7. GERD. RECOMMENDATIONS: Continue the patient's oxygen. Continue Cardizem. Continue Lovenox at 1 mg/kg subcutaneously q. 12 hours and later change to an oral anticoagulant agent. Continue Xopenex treatment p.r.n. Continue digoxin. Continue the patient on atorvastatin. NOTE: Thirty minutes spent on this patient with more than 50% of the time spent in direct patient care and the patient's medications have been reviewed and adjusted. Medical decision making is of moderate to high complexity. Discussed with the hospitalist taking care of the patient. Discussed with the patient's family member. Discussed with the patient earlier. Dr. Nguyen will follow the patient up tomorrow. DICTATING PHYSICIAN: YADI ACEVES M.D. [id number] PHY#: [id number] ID: [id number] JOB#: [id number] ACCT: [id number] cc: >
--- NOTE | 2018-01-09 15:05 | PDOC PROGRESS REPORT ---
Subjective Progress Note for:: 01/09/18 Subjective:: 82 year old gentleman with a past medical history of GERD Hypertension Hyperlipidemia COPD on 4L O2 NC at home He presented with A flutter and was started on a Cardizem gtt and Lovenox. He reportedly drinks 4-5 beers a day. He had been very agitated and attempting to remove IV and telemonitor leads overnight so required soft limb restraints. The patient has been receiving IV Ativan for signs and symptoms of alcohol withdrawal. His cardizem gtt had been switched off and he was started on PO Cardizem on 01/08. Overnight, however, he was started back on cardizem gtt due to elevated HR. He has required soft limb restraints due to confusion, alcohol withdrawal and persistent attempts to remove IV and tele monitor leads. Reason For Visit: PAROXYSMAL ATRIAL FLUTTER Physical Exam Vital Signs: Temp Pulse Resp BP Pulse Ox 97.8 F 137 H 18 133/92 H 95 01/09/18 11:30 01/09/18 14:00 01/09/18 13:58 01/09/18 14:00 01/09/18 13:58 Intake & Output 01/08/18 01/09/18 01/10/18 06:59 06:59 06:59 Intake Total 560 150 50 Output Total 100 Balance 460 150 50 Weight 75.6 kg 71.8 kg General appearance: PRESENT: no acute distress Head exam: PRESENT: normocephalic Eye exam: ABSENT: scleral icterus Ear exam: PRESENT: normal external ear exam Mouth exam: PRESENT: moist Neck exam: ABSENT: tracheal deviation Respiratory exam: PRESENT: rhonchi, symmetrical, unlabored Cardiovascular exam: PRESENT: irregular rhythm, tachycardia GI/Abdominal exam: PRESENT: normal bowel sounds, soft. ABSENT: tenderness Rectal exam: PRESENT: deferred Gentrourinary exam: ABSENT: indwelling catheter Extremities exam: ABSENT: pedal edema Neurological exam: PRESENT: altered Skin exam: ABSENT: rash Results Laboratory Results: 01/09/18 04:55 01/09/18 04:55 01/09/18 01/09/18 04:55 04:55 WBC 6.6 RBC 4.30 L Hgb 12.3 L Hct 37.5 L MCV 87 MCH 28.5 MCHC 32.8 RDW 15.4 H Plt Count 196 Sodium 144.0 Potassium 4.0 Chloride 105 Carbon Dioxide 24 Anion Gap 15 BUN 14 Creatinine 0.84 Est GFR ( Amer) > 60 Est GFR (Non-Af Amer) > 60 Glucose 96 Calcium 8.8 Phosphorus 3.6 Magnesium 2.0 Impressions: Chest/Abdomen CTA 01/04/18 17:22 IMPRESSION: 1. There is no evidence of pulmonary emboli. 2. Centrilobular emphysema. Subsegmental atelectasis. Small pleural effusions. Calcified pleural plaques. Head CT 01/08/18 00:00 IMPRESSION: CHRONIC CHANGES OF ATROPHY AND MICROVASCULAR ISCHEMIA. NO CT EVIDENCE OF ACUTE INTRACRANIAL HEMORRHAGE OR LARGE TERRITORY ACUTE ISCHEMIA. EVIDENCE OF ACUTE STROKE: NO. Assessment & Plan - Diagnosis (1) Paroxysmal atrial flutter Is this a current diagnosis for this admission?: Yes Plan: Continue Cardizem gtt and Digoxin (level is therapeutic) Anticoagulation with Lovenox s/c Monitor and replete electrolytes. (2) COPD (chronic obstructive pulmonary disease) Qualifiers: COPD type: unspecified COPD Qualified Code(s): J44.9 - Chronic obstructive pulmonary disease, unspecified Is this a current diagnosis for this admission?: Yes Plan: Stable, continue outpatient inhalers. Not in exacerbation (3) Hyperlipidemia Qualifiers: Hyperlipidemia type: unspecified Qualified Code(s): E78.5 - Hyperlipidemia , unspecified Is this a current diagnosis for this admission?: Yes Plan: On Statin (4) Hypertension Is this a current diagnosis for this admission?: Yes Plan: Lisinopril on Hold. Continue to monitor (5) Alcohol withdrawal Qualifiers: Complication of substance-induced condition: with delirium Qualified Code(s ): F10.231 - Alcohol dependence with withdrawal delirium Is this a current diagnosis for this admission?: Yes Plan: Ativan PO schaduled and IV PRN. - Time Time Spent with patient: 35 or more minutes
[2018-01-09] MEDS: THIAMINE HCL INJ 200 MG/2 ML VIAL IM SCH (18:53)
[2018-01-09] MEDS: ATORVASTATIN CALCIUM 20 MG TABLET PO SCH (21:56)
[2018-01-09] MEDS: ACETAMINOPHEN 325 MG TABLET PO PRN (23:29)
[2018-01-10] MEDS: DILTIAZEM HCL 30 MG TABLET PO SCH ×3 (02:17→21:13)
[2018-01-10] MEDS: LEVALBUTEROL HCL NEB 0.63 MG/3 ML AMPUL NEB SCH ×4 (02:54→19:49)
[2018-01-10] MEDS: LANSOPRAZOLE 30 MG TAB.RAP.DR PO SCH (05:32)
[2018-01-10] MEDS: DILTIAZEM HCL/D5W 125 MG/125 ML RTUINJ IV PRN ×2 (08:54→23:17)
--- NOTE | 2018-01-10 09:49 | PDOC PROGRESS REPORT ---
Subjective Progress Note for:: 01/10/18 Subjective:: Patient was noted to be confused today. He could not take p.o. medications. He is currently seems somewhat obtunded and is difficult to arouse. He is noted to be also confused by the nurses. Patient noted to be otherwise comfortable without any respiratory distress or any other distress. Patient remains in atrial flutter/fibrillation. He continues on IV Cardizem drip. Reason For Visit: PAROXYSMAL ATRIAL FLUTTER Physical Exam Vital Signs: Temp Pulse Resp BP Pulse Ox 99.4 F 77 20 125/61 98 01/10/18 07:33 01/10/18 07:33 01/10/18 07:33 01/10/18 07:33 01/10/18 07:33 Intake & Output 01/09/18 01/10/18 01/11/18 06:59 06:59 06:59 Intake Total 150 250 Balance 150 250 Weight 71.8 kg 70.3 kg Exam: GENERAL: well-nourished and in no acute distress. Patient is lethargic and not oriented to place time or person. HEAD: Atraumatic, normocephalic. EYES: Pupils equal round and reactive to light, extraocular movements intact, sclera anicteric, conjunctiva are normal. ENT: TMs normal, nares patent, oropharynx clear without exudates. Moist mucous membranes. No oral ulcerations or bleeding gums noted NECK: supple without lymphadenopathy or JVD. Trachea is central. No cervical or axillary lymphadenopathy noted. Carotids are 2+ LUNGS: Breath sounds bibasilar fine crackles at bases. No significant dullness noted. CHEST: Palpation of chest wall shows no significant chest wall tenderness. 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 ABDOMEN: Soft, no significant tenderness appreciated, normoactive bowel sounds. No guarding, no rebound. No rigidity noted . No masses appreciated. EXTREMITIES: Pedal pulses are 1-2+, no calf tenderness noted, Trace + pedal edema noted. No clubbing or cyanosis. NEUROLOGICAL: Patient is alert but is not able to participate in neurological exam because of patient's current mental status PSYCH: Patient cannot participate in a neurologic and psych exam because of the patient's current mental status SKIN: No significant ecchymosis, rash, ulcerations or signs of pruritus noted. MUSCULOSKELETAL EXAM: No significant joint swelling noted. Results Laboratory Results: 01/09/18 04:55 01/09/18 04:55 EKG Comments: Telemetry shows atrial flutter with controlled ventricular response. Impressions: Chest/Abdomen CTA 01/04/18 17:22 IMPRESSION: 1. There is no evidence of pulmonary emboli. 2. Centrilobular emphysema. Subsegmental atelectasis. Small pleural effusions. Calcified pleural plaques. Head CT 01/08/18 00:00 IMPRESSION: CHRONIC CHANGES OF ATROPHY AND MICROVASCULAR ISCHEMIA. NO CT EVIDENCE OF ACUTE INTRACRANIAL HEMORRHAGE OR LARGE TERRITORY ACUTE ISCHEMIA. EVIDENCE OF ACUTE STROKE: NO. Assessment & Plan - Diagnosis (1) Atrial fibrillation/flutter Is this a current diagnosis for this admission?: Yes (2) Alcohol withdrawal Qualifiers: Complication of substance-induced condition: with delirium Qualified Code(s ): F10.231 - Alcohol dependence with withdrawal delirium Is this a current diagnosis for this admission?: Yes (3) COPD (chronic obstructive pulmonary disease) Qualifiers: COPD type: unspecified COPD Qualified Code(s): J44.9 - Chronic obstructive pulmonary disease, unspecified Is this a current diagnosis for this admission?: Yes (4) Hyperlipidemia Qualifiers: Hyperlipidemia type: unspecified Qualified Code(s): E78.5 - Hyperlipidemia , unspecified Is this a current diagnosis for this admission?: Yes (5) Hypertension Qualifiers: Hypertension type: essential hypertension Qualified Code(s): I10 - Essential (primary) hypertension Is this a current diagnosis for this admission?: Yes - Notes Notes: RECOMMENDATIONS: Atrial flutter fibrillation: Continue Lovenox, switch to Eliquis or Xarelto when able to tolerate. Currently rate is well controlled. May use IV metoprolol or use p.o. metoprolol when and if needed. Patient does have history of prior stroke. Alcohol withdrawal: Observe for possible seizures, other signs of alcohol withdrawal. Hypertension: Currently blood pressure is well controlled. Continue current regimen. Continue oxygen therapy. COPD: Currently stable continue baseline bronchodilator therapy. Hyperlipidemia: Continue with statin therapy. Gastroesophageal reflux: Continue proton pump inhibitor. - Time Time with patient: Greater than 35 minutes - CODE STATUS was discussed, patient remains full code. Surrogate decision-maker unchanged. Multiple medical problems were addressed. More than 50% of the time spent coordinating care, discussing management plans with involved caregivers. Management plans discussed with involved personnels. Medical decision making was of moderate to high complexity, patient's has multiple comorbidities. Medications reviewed and adjusted accordingly: Yes
[2018-01-10] MEDS ORDERED: THIAMINE HCL 100 MG in NORMAL SALINE 50 ML IV SCH (10:00)
[2018-01-10] MEDS: ENOXAPARIN SODIUM INJ 80 MG/0.8 ML DISP.SYRIN SUBCUT SCH ×2 (11:00→21:12)
[2018-01-10] MEDS: CYANOCOBALAMIN (VITAMIN B-12) INJ 1000 MCG/1 ML VIAL IM SCH (11:00)
--- NOTE | 2018-01-10 11:47 | PDOC PROGRESS REPORT ---
Subjective Progress Note for:: 01/10/18 Subjective:: 82 year old gentleman with a past medical history of GERD Hypertension Hyperlipidemia COPD on 4L O2 NC at home He presented with A flutter and was started on a Cardizem gtt and Lovenox. He reportedly drinks 4-5 beers a day. The patient developed alcohol withdrawal delirium and is being treated with Ativan and Thiamine He has required soft limb restraints due to confusion, alcohol withdrawal and persistent attempts to remove IV and tele monitor leads. He remains on Cardizem gtt due to inability to take PO meds due to confusion and somnolence. Reason For Visit: PAROXYSMAL ATRIAL FLUTTER Physical Exam Vital Signs: Temp Pulse Resp BP Pulse Ox 99.4 F 80 17 125/61 98 01/10/18 07:33 01/10/18 07:53 01/10/18 07:53 01/10/18 07:33 01/10/18 07:33 Intake & Output 01/09/18 01/10/18 01/11/18 06:59 06:59 06:59 Intake Total 150 250 Balance 150 250 Weight 71.8 kg 70.3 kg General appearance: PRESENT: no acute distress Head exam: PRESENT: normocephalic Eye exam: ABSENT: scleral icterus Ear exam: PRESENT: normal external ear exam Mouth exam: PRESENT: moist Respiratory exam: PRESENT: symmetrical, unlabored. ABSENT: crackles Cardiovascular exam: PRESENT: irregular rhythm GI/Abdominal exam: PRESENT: normal bowel sounds, soft. ABSENT: tenderness Rectal exam: PRESENT: deferred Extremities exam: ABSENT: pedal edema Results Laboratory Results: 01/09/18 04:55 01/09/18 04:55 Impressions: Chest/Abdomen CTA 01/04/18 17:22 IMPRESSION: 1. There is no evidence of pulmonary emboli. 2. Centrilobular emphysema. Subsegmental atelectasis. Small pleural effusions. Calcified pleural plaques. Head CT 01/08/18 00:00 IMPRESSION: CHRONIC CHANGES OF ATROPHY AND MICROVASCULAR ISCHEMIA. NO CT EVIDENCE OF ACUTE INTRACRANIAL HEMORRHAGE OR LARGE TERRITORY ACUTE ISCHEMIA. EVIDENCE OF ACUTE STROKE: NO. Assessment & Plan - Diagnosis (1) Paroxysmal atrial flutter Is this a current diagnosis for this admission?: Yes Plan: Continue Cardizem gtt and Digoxin (level is therapeutic) Anticoagulation with Lovenox s/c Monitor and replete electrolytes. (2) COPD (chronic obstructive pulmonary disease) Qualifiers: COPD type: unspecified COPD Qualified Code(s): J44.9 - Chronic obstructive pulmonary disease, unspecified Is this a current diagnosis for this admission?: Yes Plan: Stable, continue outpatient inhalers. Not in exacerbation (3) Hyperlipidemia Qualifiers: Hyperlipidemia type: unspecified Qualified Code(s): E78.5 - Hyperlipidemia , unspecified Is this a current diagnosis for this admission?: Yes Plan: On Statin (4) Hypertension Qualifiers: Hypertension type: essential hypertension Qualified Code(s): I10 - Essential (primary) hypertension Is this a current diagnosis for this admission?: Yes Plan: Lisinopril on Hold. Continue to monitor (5) Alcohol withdrawal Qualifiers: Complication of substance-induced condition: with delirium Qualified Code(s ): F10.231 - Alcohol dependence with withdrawal delirium Is this a current diagnosis for this admission?: Yes Plan: Ativan IV PRN. - Time Time Spent with patient: 25-34 minutes
[2018-01-10] MEDS: DOCUSATE SODIUM 100 MG CAPSULE PO SCH ×2 (17:39→17:55)
[2018-01-10] MEDS: FLUTICASONE/SALMETEROL DISKUS 500-50 MCG/DOSE IH SCH ×2 (17:39→21:13)
[2018-01-10] MEDS: GUAIFENESIN 600 MG TABLET.SA PO SCH ×2 (17:39→17:55)
[2018-01-10] MEDS: DIGOXIN 0.125 MG TABLET PO SCH (17:40)
[2018-01-10] MEDS: THIAMINE HCL 100 MG in NORMAL SALINE 50 ML IV SCH (17:55)
[2018-01-10] MEDS: LORAZEPAM INJ 2 MG/1 ML VIAL IV PRN (21:13)
[2018-01-10] MEDS: ATORVASTATIN CALCIUM 20 MG TABLET PO SCH (21:13)
[2018-01-11] MEDS: LEVALBUTEROL HCL NEB 0.63 MG/3 ML AMPUL NEB SCH ×4 (01:10→19:50)
[2018-01-11] MEDS: DILTIAZEM HCL 30 MG TABLET PO SCH ×4 (04:03→21:16)
[2018-01-11 04:59] LABS: HEMATOCRIT 36.6 % (37.9-51.0); HEMOGLOBIN 11.9 g/dL (13.5-17.0); MEAN CORPUSCULAR HEMOGLOBIN 27.7 pg (27.0-33.4); MEAN CORPUSCULAR HGB CONC 32.4 g/dL (32.0-36.0); MEAN CORPUSCULAR VOLUME 86 fl (80-97); PLATELET COUNT 210 10^3/uL (150-450); RED BLOOD COUNT 4.28 10^6/uL (4.35-5.55); RED CELL DISTRIBUTION WIDTH 15.2 % (11.5-14.0); WHITE BLOOD COUNT 7.9 10^3/uL (4.0-10.5)
[2018-01-11] MEDS: LANSOPRAZOLE 30 MG TAB.RAP.DR PO SCH (05:18)
[2018-01-11 05:25] LABS: ALANINE AMINOTRANSFERASE 22 U/L (21-72); ALBUMIN 3.1 g/dL (3.5-5.0); ALKALINE PHOSPHATASE 93 U/L (38-126); ANION GAP 14 (5-19); ASPARTATE AMINO TRANSFERASE 22 U/L (17-59); BILIRUBIN,DIRECT 0.4 mg/dL (0.0-0.4); BILIRUBIN,TOTAL 0.5 mg/dL (0.2-1.3); BLOOD UREA NITROGEN 15 mg/dL (7-20); CALCIUM 8.9 mg/dL (8.4-10.2); CARBON DIOXIDE 24 mmol/L (22-30); CHLORIDE 106 mmol/L (98-107); GLUCOSE 88 mg/dL (75-110); PHOSPHORUS 3.6 mg/dL (2.5-4.5); POTASSIUM 3.6 mmol/L (3.6-5.0); SODIUM 144.2 mmol/L (137-145); TOTAL PROTEIN 6.3 g/dL (6.3-8.2)
[2018-01-11] MEDS: ENOXAPARIN SODIUM INJ 80 MG/0.8 ML DISP.SYRIN SUBCUT SCH ×2 (10:37→21:16)
[2018-01-11] MEDS: DOCUSATE SODIUM 100 MG CAPSULE PO SCH ×2 (10:37→17:08)
[2018-01-11] MEDS: DIGOXIN 0.125 MG TABLET PO SCH (10:38)
[2018-01-11] MEDS: CYANOCOBALAMIN (VITAMIN B-12) INJ 1000 MCG/1 ML VIAL IM SCH (10:40)
[2018-01-11] MEDS: GUAIFENESIN 600 MG TABLET.SA PO SCH ×2 (10:40→17:08)
[2018-01-11] MEDS: FLUTICASONE/SALMETEROL DISKUS 500-50 MCG/DOSE IH SCH ×2 (10:41→21:17)
[2018-01-11] MEDS: DILTIAZEM HCL/D5W 125 MG/125 ML RTUINJ IV PRN ×2 (10:56→21:17)
--- NOTE | 2018-01-11 11:25 | PDOC PROGRESS REPORT ---
Subjective Progress Note for:: 01/11/18 Subjective:: Patient noted to be feeling better. He is denying any chest pain. He is comfortably laying in bed. The nurse taking care of him tells me that patient has dementia. He has been noted to be intermittently confused. Patient noted to be otherwise comfortable without any respiratory distress or any other distress. Patient remains in atrial flutter/fibrillation. He continues on IV Cardizem drip. Reason For Visit: PAROXYSMAL ATRIAL FLUTTER Physical Exam Vital Signs: Temp Pulse Resp BP Pulse Ox 99.3 F 80 16 122/70 92 01/11/18 07:28 01/11/18 09:00 01/11/18 07:53 01/11/18 09:00 01/11/18 07:53 Intake & Output 01/10/18 01/11/18 01/12/18 06:59 06:59 06:59 Intake Total 250 0 Balance 250 0 Weight 70.3 kg 69.7 kg Exam: GENERAL: well-nourished and in no acute distress. Patient is alert but not oriented to place time. Patient is able to tell his name. HEAD: Atraumatic, normocephalic. EYES: Pupils equal round and reactive to light, extraocular movements intact, sclera anicteric, conjunctiva are normal. ENT: TMs normal, nares patent, oropharynx clear without exudates. Moist mucous membranes. No oral ulcerations or bleeding gums noted NECK: supple without lymphadenopathy or JVD. Trachea is central. No cervical or axillary lymphadenopathy noted. Carotids are 2+ LUNGS: Breath sounds bibasilar fine crackles at bases. No significant dullness noted. CHEST: Palpation of chest wall shows no significant chest wall tenderness. 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 ABDOMEN: Soft, no significant tenderness appreciated, normoactive bowel sounds. No guarding, no rebound. No rigidity noted . No masses appreciated. EXTREMITIES: Pedal pulses are 1-2+, no calf tenderness noted, Trace + pedal edema noted. No clubbing or cyanosis. NEUROLOGICAL: Patient is alert but is not able to participate in neurological exam because of patient's current mental status PSYCH: Patient cannot participate in a neurologic and psych exam because of the patient's current mental status SKIN: No significant ecchymosis, rash, ulcerations or signs of pruritus noted. MUSCULOSKELETAL EXAM: No significant joint swelling noted. Results Laboratory Results: 01/11/18 04:41 01/11/18 04:41 01/11/18 01/11/18 04:41 04:41 WBC 7.9 RBC 4.28 L Hgb 11.9 L Hct 36.6 L MCV 86 MCH 27.7 MCHC 32.4 RDW 15.2 H Plt Count 210 Sodium 144.2 Potassium 3.6 Chloride 106 Carbon Dioxide 24 Anion Gap 14 BUN 15 Creatinine 0.91 Est GFR ( Amer) > 60 Est GFR (Non-Af Amer) > 60 Glucose 88 Calcium 8.9 Phosphorus 3.6 Magnesium 2.1 Total Bilirubin 0.5 AST 22 ALT 22 Alkaline Phosphatase 93 Total Protein 6.3 Albumin 3.1 L EKG Comments: Telemetry shows atrial flutter fibrillation with mild increased heart rate at time. Impressions: Chest/Abdomen CTA 01/04/18 17:22 IMPRESSION: 1. There is no evidence of pulmonary emboli. 2. Centrilobular emphysema. Subsegmental atelectasis. Small pleural effusions. Calcified pleural plaques. Head CT 01/08/18 00:00 IMPRESSION: CHRONIC CHANGES OF ATROPHY AND MICROVASCULAR ISCHEMIA. NO CT EVIDENCE OF ACUTE INTRACRANIAL HEMORRHAGE OR LARGE TERRITORY ACUTE ISCHEMIA. EVIDENCE OF ACUTE STROKE: NO. Assessment & Plan - Diagnosis (1) Atrial fibrillation/flutter Is this a current diagnosis for this admission?: Yes (2) Alcohol withdrawal Qualifiers: Complication of substance-induced condition: with delirium Qualified Code(s ): F10.231 - Alcohol dependence with withdrawal delirium Is this a current diagnosis for this admission?: Yes (3) COPD (chronic obstructive pulmonary disease) Qualifiers: COPD type: unspecified COPD Qualified Code(s): J44.9 - Chronic obstructive pulmonary disease, unspecified Is this a current diagnosis for this admission?: Yes (4) Hyperlipidemia Qualifiers: Hyperlipidemia type: unspecified Qualified Code(s): E78.5 - Hyperlipidemia , unspecified Is this a current diagnosis for this admission?: Yes (5) Hypertension Qualifiers: Hypertension type: essential hypertension Qualified Code(s): I10 - Essential (primary) hypertension Is this a current diagnosis for this admission?: Yes (6) Physical debility Is this a current diagnosis for this admission?: Yes - Notes Notes: RECOMMENDATIONS: Atrial flutter fibrillation: Continue Lovenox, switch to Eliquis or Xarelto when able to take p.o. on a consistent basis. Currently rate is well controlled. Currently on p.o. and IV Cardizem. Attempts are being made to switch patient to p.o. Cardizem. May use IV metoprolol or use p.o. metoprolol when and if needed. Patient does have history of prior stroke. Alcohol withdrawal: Observe for possible seizures, other signs of alcohol withdrawal. Hypertension: Currently blood pressure is well controlled. Continue current regimen. COPD: Currently stable continue baseline bronchodilator therapy. Continue oxygen therapy. Hyperlipidemia: Continue with statin therapy. Gastroesophageal reflux: Continue proton pump inhibitor. General debility: Patient may benefit from physical therapy at least bedside physical therapy can be performed. - Time Time with patient: Greater than 35 minutes - CODE STATUS was discussed, patient remains full code. Multiple medical problems were addressed. More than 50% of the time spent coordinating care, discussing management plans with involved caregivers. Management plans discussed with involved personnels. Medical decision making was of moderate to high complexity, patient's has multiple comorbidities. Medications reviewed and adjusted accordingly: Yes
--- NOTE | 2018-01-11 15:29 | PDOC PROGRESS REPORT ---
Subjective Progress Note for:: 01/11/18 Subjective:: Patient unable to provide any meaningful information. Reason For Visit: PAROXYSMAL ATRIAL FLUTTER Physical Exam Vital Signs: Temp Pulse Resp BP Pulse Ox 98.6 F 86 16 127/85 H 93 01/11/18 11:23 01/11/18 14:00 01/11/18 13:27 01/11/18 12:00 01/11/18 13:27 Intake & Output 01/10/18 01/11/18 01/12/18 05:59 05:59 05:59 Intake Total 250 0 50 Balance 250 0 50 Weight 158 lb 4.67 oz 153 lb 10.595 oz Exam: Awake, mumbles, not currently agitated. No coherent speech Head exam: PRESENT: atraumatic Respiratory exam: PRESENT: clear to auscultation amina Cardiovascular exam: PRESENT: RRR GI/Abdominal exam: PRESENT: soft Extremities exam: ABSENT: pedal edema Neurological exam: PRESENT: awake. ABSENT: oriented to person Skin exam: PRESENT: warm Results Laboratory Results: 01/11/18 04:41 01/11/18 04:41 01/11/18 01/11/18 04:41 04:41 WBC 7.9 RBC 4.28 L Hgb 11.9 L Hct 36.6 L MCV 86 MCH 27.7 MCHC 32.4 RDW 15.2 H Plt Count 210 Sodium 144.2 Potassium 3.6 Chloride 106 Carbon Dioxide 24 Anion Gap 14 BUN 15 Creatinine 0.91 Est GFR ( Amer) > 60 Est GFR (Non-Af Amer) > 60 Glucose 88 Calcium 8.9 Phosphorus 3.6 Magnesium 2.1 Total Bilirubin 0.5 AST 22 ALT 22 Alkaline Phosphatase 93 Total Protein 6.3 Albumin 3.1 L Impressions: Chest/Abdomen CTA 01/04/18 17:22 IMPRESSION: 1. There is no evidence of pulmonary emboli. 2. Centrilobular emphysema. Subsegmental atelectasis. Small pleural effusions. Calcified pleural plaques. Head CT 01/08/18 00:00 IMPRESSION: CHRONIC CHANGES OF ATROPHY AND MICROVASCULAR ISCHEMIA. NO CT EVIDENCE OF ACUTE INTRACRANIAL HEMORRHAGE OR LARGE TERRITORY ACUTE ISCHEMIA. EVIDENCE OF ACUTE STROKE: NO. Assessment & Plan - Diagnosis (1) Acute encephalopathy Is this a current diagnosis for this admission?: Yes Plan: Should be nearing completion of his alcohol withdrawal. Time will tell how much he clears. (2) Alcohol withdrawal Qualifiers: Complication of substance-induced condition: with delirium Qualified Code(s ): F10.231 - Alcohol dependence with withdrawal delirium Is this a current diagnosis for this admission?: Yes Plan: Now being managed with low-dose as needed Ativan. Got agitated last night, but that was not clearly related to alcohol withdrawal. Trying to minimize sedation while maintaining patient and staff safety. (3) Atrial fibrillation/flutter Is this a current diagnosis for this admission?: Yes Plan: Oral Cardizem was increased. Will try to wean off his drip. If we are unable I will try Lopressor. Transition to oral anticoagulant when swallowing consistently. (4) COPD (chronic obstructive pulmonary disease) Qualifiers: COPD type: unspecified COPD Qualified Code(s): J44.9 - Chronic obstructive pulmonary disease, unspecified Is this a current diagnosis for this admission?: Yes Plan: Stable on 3 L per nasal cannula (5) Hypertension Qualifiers: Hypertension type: essential hypertension Qualified Code(s): I10 - Essential (primary) hypertension Is this a current diagnosis for this admission?: Yes Plan: Well-controlled on current medication.
[2018-01-11] MEDS: THIAMINE HCL 100 MG in NORMAL SALINE 50 ML IV SCH (17:08)
[2018-01-11] MEDS: ATORVASTATIN CALCIUM 20 MG TABLET PO SCH (21:16)
[2018-01-12] MEDS: LEVALBUTEROL HCL NEB 0.63 MG/3 ML AMPUL NEB SCH ×4 (02:01→20:18)
[2018-01-12] MEDS: DILTIAZEM HCL 30 MG TABLET PO SCH ×4 (02:37→20:54)
[2018-01-12] MEDS: LANSOPRAZOLE 30 MG TAB.RAP.DR PO SCH (06:22)
[2018-01-12] MEDS: DILTIAZEM HCL/D5W 125 MG/125 ML RTUINJ IV PRN ×2 (07:52→20:55)
[2018-01-12] MEDS: GUAIFENESIN 600 MG TABLET.SA PO SCH ×2 (09:08→17:36)
[2018-01-12] MEDS: ENOXAPARIN SODIUM INJ 80 MG/0.8 ML DISP.SYRIN SUBCUT SCH (09:09)
[2018-01-12] MEDS: DIGOXIN 0.125 MG TABLET PO SCH (09:12)
[2018-01-12] MEDS: CYANOCOBALAMIN (VITAMIN B-12) INJ 1000 MCG/1 ML VIAL IM SCH (09:12)
[2018-01-12] MEDS: ASPIRIN 81 MG TABLET, ENT COATED PO SCH (09:12)
[2018-01-12] MEDS: DOCUSATE SODIUM 100 MG CAPSULE PO SCH ×2 (09:13→17:35)
[2018-01-12] MEDS: FLUTICASONE/SALMETEROL DISKUS 500-50 MCG/DOSE IH SCH ×2 (09:13→20:53)
--- NOTE | 2018-01-12 16:00 | PDOC PROGRESS REPORT ---
Subjective Progress Note for:: 01/12/18 Subjective:: Still does not make any sense, but says that with more energy. Has not been swatting at staff. Reason For Visit: PAROXYSMAL ATRIAL FLUTTER Physical Exam Vital Signs: Temp Pulse Resp BP Pulse Ox 98.6 F 93 18 118/60 95 01/12/18 07:45 01/12/18 14:00 01/12/18 13:40 01/12/18 14:00 01/12/18 13:40 Intake & Output 01/11/18 01/12/18 01/13/18 05:59 05:59 05:59 Intake Total 0 150 Balance 0 150 Weight 153 lb 10.595 oz 153 lb 0.013 oz General appearance: PRESENT: no acute distress Respiratory exam: PRESENT: clear to auscultation amina Cardiovascular exam: PRESENT: other - Regularly regular. ABSENT: tachycardia GI/Abdominal exam: PRESENT: soft Musculoskeletal exam: PRESENT: normal inspection Neurological exam: PRESENT: awake. ABSENT: oriented to person Skin exam: PRESENT: warm Results Laboratory Results: 01/11/18 04:41 01/11/18 04:41 Impressions: Chest/Abdomen CTA 01/04/18 17:22 IMPRESSION: 1. There is no evidence of pulmonary emboli. 2. Centrilobular emphysema. Subsegmental atelectasis. Small pleural effusions. Calcified pleural plaques. Head CT 01/08/18 00:00 IMPRESSION: CHRONIC CHANGES OF ATROPHY AND MICROVASCULAR ISCHEMIA. NO CT EVIDENCE OF ACUTE INTRACRANIAL HEMORRHAGE OR LARGE TERRITORY ACUTE ISCHEMIA. EVIDENCE OF ACUTE STROKE: NO. Assessment & Plan - Diagnosis (1) Acute encephalopathy Is this a current diagnosis for this admission?: Yes Plan: Should be nearing completion of his alcohol withdrawal. Time will tell how much he clears. (2) Alcohol withdrawal Qualifiers: Complication of substance-induced condition: with delirium Qualified Code(s ): F10.231 - Alcohol dependence with withdrawal delirium Is this a current diagnosis for this admission?: Yes Plan: Now being managed with low-dose as needed Ativan. Has not required any in the last 24 hours. Trying to minimize sedation while maintaining patient and staff safety. (3) Atrial fibrillation/flutter Is this a current diagnosis for this admission?: Yes Plan: Continue oral Cardizem. Add Lopressor. Continue to wean diltiazem drip as tolerated. Transition to oral anticoagulant. (4) COPD (chronic obstructive pulmonary disease) Qualifiers: COPD type: unspecified COPD Qualified Code(s): J44.9 - Chronic obstructive pulmonary disease, unspecified Is this a current diagnosis for this admission?: Yes (5) Hypertension Qualifiers: Hypertension type: essential hypertension Qualified Code(s): I10 - Essential (primary) hypertension Is this a current diagnosis for this admission?: Yes
[2018-01-12] MEDS: THIAMINE HCL 100 MG in NORMAL SALINE 50 ML IV SCH (17:36)
[2018-01-12] MEDS: ATORVASTATIN CALCIUM 20 MG TABLET PO SCH (20:53)
[2018-01-12] MEDS: METOPROLOL TARTRATE 25 MG TABLET PO SCH (20:54)
[2018-01-12] MEDS: APIXABAN 5 MG TABLET PO SCH (20:54)
[2018-01-13] MEDS: LEVALBUTEROL HCL NEB 0.63 MG/3 ML AMPUL NEB SCH ×4 (01:14→20:03)
[2018-01-13] MEDS: DILTIAZEM HCL 30 MG TABLET PO SCH ×4 (02:51→22:29)
[2018-01-13] MEDS: LANSOPRAZOLE 30 MG TAB.RAP.DR PO SCH (05:13)
[2018-01-13] MEDS: METOPROLOL TARTRATE 25 MG TABLET PO SCH ×2 (05:13→17:55)
[2018-01-13] MEDS: DOCUSATE SODIUM 100 MG CAPSULE PO SCH ×2 (10:44→17:54)
[2018-01-13] MEDS: ASPIRIN 81 MG TABLET, ENT COATED PO SCH (10:45)
[2018-01-13] MEDS: DIGOXIN 0.125 MG TABLET PO SCH (10:45)
[2018-01-13] MEDS: CYANOCOBALAMIN (VITAMIN B-12) INJ 1000 MCG/1 ML VIAL IM SCH (10:46)
[2018-01-13] MEDS: GUAIFENESIN 600 MG TABLET.SA PO SCH (10:46)
[2018-01-13] MEDS: APIXABAN 5 MG TABLET PO SCH ×2 (10:47→17:55)
[2018-01-13] MEDS: FLUTICASONE/SALMETEROL DISKUS 500-50 MCG/DOSE IH SCH ×2 (10:48→22:35)
--- NOTE | 2018-01-13 11:39 | PDOC PROGRESS REPORT ---
Subjective Progress Note for:: 01/12/18 Subjective:: Patient claims to be feeling better. He is denying any chest pain, on direct questioning. He is comfortably laying in bed. Patient noted to be alert at times but then becomes lethargic and very sleepy. Patient's and daughter at bedside this morning. He has been noted to be intermittently confused. Patient noted to be otherwise comfortable without any respiratory distress or any other distress. Patient remains in atrial flutter/fibrillation. He continues on IV Cardizem drip. Reason For Visit: PAROXYSMAL ATRIAL FLUTTER Physical Exam Vital Signs: Temp Pulse Resp BP Pulse Ox 99.1 F 89 17 126/69 H 96 01/12/18 20:01 01/12/18 20:18 01/12/18 20:18 01/12/18 20:01 01/12/18 20:18 Intake & Output 01/11/18 01/12/18 01/13/18 06:59 06:59 06:59 Intake Total 0 150 375 Balance 0 150 375 Weight 69.7 kg 69.4 kg Exam: GENERAL: well-nourished and in no acute distress. Patient is alert but not oriented to place time or person. Patient is also noted to be agitated at times. HEAD: Atraumatic, normocephalic. EYES: Pupils equal round and reactive to light, extraocular movements intact, sclera anicteric, conjunctiva are normal. ENT: TMs normal, nares patent, oropharynx clear without exudates. Moist mucous membranes. No oral ulcerations or bleeding gums noted NECK: supple without lymphadenopathy or JVD. Trachea is central. No cervical or axillary lymphadenopathy noted. Carotids are 2+ LUNGS: Breath sounds bibasilar fine crackles at bases. No significant dullness noted. CHEST: Palpation of chest wall shows no significant chest wall tenderness. 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 ABDOMEN: Soft, no significant tenderness appreciated, normoactive bowel sounds. No guarding, no rebound. No rigidity noted . No masses appreciated. EXTREMITIES: Pedal pulses are 1-2+, no calf tenderness noted, Trace + pedal edema noted. No clubbing or cyanosis. NEUROLOGICAL: Patient is alert but is not able to participate in neurological exam however patient noted to be moving all 4 extremities and no facial asymmetry noted. PSYCH: Patient cannot participate in a neurologic and psych exam because of the patient's current mental status SKIN: No significant ecchymosis, rash, ulcerations or signs of pruritus noted. MUSCULOSKELETAL EXAM: No significant joint swelling noted. Results Laboratory Results: 01/11/18 04:41 01/11/18 04:41 EKG Comments: Telemetry strips shows atrial flutter fibrillation with controlled ventricular response. Impressions: Chest/Abdomen CTA 01/04/18 17:22 IMPRESSION: 1. There is no evidence of pulmonary emboli. 2. Centrilobular emphysema. Subsegmental atelectasis. Small pleural effusions. Calcified pleural plaques. Head CT 01/08/18 00:00 IMPRESSION: CHRONIC CHANGES OF ATROPHY AND MICROVASCULAR ISCHEMIA. NO CT EVIDENCE OF ACUTE INTRACRANIAL HEMORRHAGE OR LARGE TERRITORY ACUTE ISCHEMIA. EVIDENCE OF ACUTE STROKE: NO. Assessment & Plan - Diagnosis (1) Atrial fibrillation/flutter Is this a current diagnosis for this admission?: Yes (2) Alcohol withdrawal Qualifiers: Complication of substance-induced condition: with delirium Qualified Code(s ): F10.231 - Alcohol dependence with withdrawal delirium Is this a current diagnosis for this admission?: Yes (3) COPD (chronic obstructive pulmonary disease) Qualifiers: COPD type: unspecified COPD Qualified Code(s): J44.9 - Chronic obstructive pulmonary disease, unspecified Is this a current diagnosis for this admission?: Yes (4) Hyperlipidemia Qualifiers: Hyperlipidemia type: unspecified Qualified Code(s): E78.5 - Hyperlipidemia , unspecified Is this a current diagnosis for this admission?: Yes (5) Hypertension Qualifiers: Hypertension type: essential hypertension Qualified Code(s): I10 - Essential (primary) hypertension Is this a current diagnosis for this admission?: Yes (6) Physical debility Is this a current diagnosis for this admission?: Yes - Notes Notes: Atrial flutter fibrillation: Continue Lovenox, switch to Eliquis or Xarelto when able to take p.o. on a consistent basis. Currently rate is well controlled. Currently on Cardizem both p.o. and IV for rate control. May use IV metoprolol or use p.o. metoprolol when and if needed. Patient does have history of prior stroke. Alcohol withdrawal: Observe for possible seizures, other signs of alcohol withdrawal. Patient may have underlying dementia from alcohol chronic intake. Hypertension: Currently blood pressure is well controlled. Continue current regimen. COPD: Currently stable continue baseline bronchodilator therapy. Continue oxygen therapy. Hyperlipidemia: Continue with statin therapy. Gastroesophageal reflux: Continue proton pump inhibitor. General debility: Patient may benefit from physical therapy at least bedside physical therapy can be performed. Patient has remained generally stable from cardiac standpoint. Will follow 1 more day. - Time Time with patient: 15-25 minutes - CODE STATUS was discussed, patient remains full code. Surrogate decision-maker patient's . Multiple medical problems were addressed. More than 50% of the time spent coordinating care, discussing management plans with involved caregivers. Management plans discussed with involved personnels. Medical decision making was of moderate to high complexity , patient's has multiple comorbidities. Medications reviewed and adjusted accordingly: Yes
--- NOTE | 2018-01-13 11:42 | PDOC PROGRESS REPORT ---
Subjective Progress Note for:: 01/13/18 Subjective:: Patient claims to be feeling fine on direct questioning. He is comfortably laying in bed. Patient noted to be alert at times but then becomes lethargic and very sleepy. Patient has been noted to be intermittently confused and also agitated. Patient noted to be otherwise comfortable without any respiratory distress or any other distress. Patient today seems to be in sinus rhythm. Reason For Visit: PAROXYSMAL ATRIAL FLUTTER Physical Exam Vital Signs: Temp Pulse Resp BP Pulse Ox 98.7 F 79 18 121/50 L 95 01/13/18 07:43 01/13/18 07:47 01/13/18 07:47 01/13/18 07:43 01/13/18 07:43 Intake & Output 01/12/18 01/13/18 01/14/18 06:59 06:59 06:59 Intake Total 150 475 Balance 150 475 Weight 69.4 kg 69 kg Exam: GENERAL: well-nourished and in no acute distress. Patient is alert, not allowing orientation to be checked. HEAD: Atraumatic, normocephalic. EYES: Pupils equal round and reactive to light, extraocular movements intact, sclera anicteric, conjunctiva are normal. ENT: TMs normal, nares patent, oropharynx clear without exudates. Moist mucous membranes. No oral ulcerations or bleeding gums noted NECK: supple without lymphadenopathy or JVD. Trachea is central. No cervical or axillary lymphadenopathy noted. Carotids are 2+ LUNGS: Breath sounds bibasilar fine crackles at bases. No significant dullness noted. CHEST: Palpation of chest wall shows no significant chest wall tenderness. 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 ABDOMEN: Soft, no significant tenderness appreciated, normoactive bowel sounds. No guarding, no rebound. No rigidity noted . No masses appreciated. EXTREMITIES: Pedal pulses are 1-2+, no calf tenderness noted, Trace + pedal edema noted. No clubbing or cyanosis. NEUROLOGICAL: Patient is alert and on quick exam is noted to move all 4 extremities, without any facial asymmetry. PSYCH: Cannot participate psych exam because of the patient's current mental status. SKIN: No significant ecchymosis, rash, ulcerations or signs of pruritus noted. MUSCULOSKELETAL EXAM: No significant joint swelling noted. Results Laboratory Results: 01/11/18 04:41 01/11/18 04:41 EKG Comments: Telemetry strips shows patient today in sinus rhythm. Impressions: Chest/Abdomen CTA 01/04/18 17:22 IMPRESSION: 1. There is no evidence of pulmonary emboli. 2. Centrilobular emphysema. Subsegmental atelectasis. Small pleural effusions. Calcified pleural plaques. Head CT 01/08/18 00:00 IMPRESSION: CHRONIC CHANGES OF ATROPHY AND MICROVASCULAR ISCHEMIA. NO CT EVIDENCE OF ACUTE INTRACRANIAL HEMORRHAGE OR LARGE TERRITORY ACUTE ISCHEMIA. EVIDENCE OF ACUTE STROKE: NO. Assessment & Plan - Diagnosis (1) Atrial fibrillation/flutter Is this a current diagnosis for this admission?: Yes (2) Alcohol withdrawal Qualifiers: Complication of substance-induced condition: with delirium Qualified Code(s ): F10.231 - Alcohol dependence with withdrawal delirium Is this a current diagnosis for this admission?: Yes (3) COPD (chronic obstructive pulmonary disease) Qualifiers: COPD type: unspecified COPD Qualified Code(s): J44.9 - Chronic obstructive pulmonary disease, unspecified Is this a current diagnosis for this admission?: Yes (4) Hyperlipidemia Qualifiers: Hyperlipidemia type: unspecified Qualified Code(s): E78.5 - Hyperlipidemia , unspecified Is this a current diagnosis for this admission?: Yes (5) Hypertension Qualifiers: Hypertension type: essential hypertension Qualified Code(s): I10 - Essential (primary) hypertension Is this a current diagnosis for this admission?: Yes (6) Physical debility Is this a current diagnosis for this admission?: Yes - Notes Notes: Atrial flutter fibrillation: Today converted to sinus rhythm. Patient's currently on Eliquis therapy. Heart rate currently is well controlled. Currently on Cardizem metoprolol and digoxin. Patient does have history of prior stroke. Alcohol withdrawal: Observe for possible seizures, other signs of alcohol withdrawal. Hypertension: Currently blood pressure is well controlled. Continue current regimen. COPD: Currently stable continue baseline bronchodilator therapy. Continue oxygen therapy. Hyperlipidemia: Continue with statin therapy. Gastroesophageal reflux: Continue proton pump inhibitor. General debility: Patient may benefit from physical therapy at least bedside physical therapy can be performed. Patient has been stable from cardiac standpoint for several days. Will therefore sign off. Please reconsult if needed. - Time Time with patient: 15-25 minutes - CODE STATUS was discussed, patient remains full code. Surrogate decision-maker patient's . Multiple medical problems were addressed. More than 50% of the time spent coordinating care, discussing management plans with involved caregivers. Management plans discussed with involved personnels. Medical decision making was of moderate to high complexity , patient's has multiple comorbidities. Medications reviewed and adjusted accordingly: Yes
--- NOTE | 2018-01-13 13:01 | PDOC PROGRESS REPORT ---
Subjective Progress Note for:: 01/13/18 Subjective:: Was able to call the nurse by rude names today Reason For Visit: PAROXYSMAL ATRIAL FLUTTER Physical Exam Vital Signs: Temp Pulse Resp BP Pulse Ox 98.7 F 79 18 121/50 L 95 01/13/18 07:43 01/13/18 07:47 01/13/18 07:47 01/13/18 07:43 01/13/18 07:43 Intake & Output 01/12/18 01/13/18 01/14/18 05:59 05:59 05:59 Intake Total 150 425 50 Balance 150 425 50 Weight 153 lb 0.013 oz 152 lb 1.903 oz General appearance: PRESENT: no acute distress Respiratory exam: PRESENT: clear to auscultation amina Cardiovascular exam: PRESENT: RRR. ABSENT: tachycardia GI/Abdominal exam: PRESENT: soft Musculoskeletal exam: PRESENT: normal inspection Neurological exam: PRESENT: awake. ABSENT: oriented to person Skin exam: PRESENT: warm Results Laboratory Results: 01/11/18 04:41 01/11/18 04:41 Impressions: Chest/Abdomen CTA 01/04/18 17:22 IMPRESSION: 1. There is no evidence of pulmonary emboli. 2. Centrilobular emphysema. Subsegmental atelectasis. Small pleural effusions. Calcified pleural plaques. Head CT 01/08/18 00:00 IMPRESSION: CHRONIC CHANGES OF ATROPHY AND MICROVASCULAR ISCHEMIA. NO CT EVIDENCE OF ACUTE INTRACRANIAL HEMORRHAGE OR LARGE TERRITORY ACUTE ISCHEMIA. EVIDENCE OF ACUTE STROKE: NO. Assessment & Plan - Diagnosis (1) Acute encephalopathy Is this a current diagnosis for this admission?: Yes Plan: Certainly not safe to live independently currently. Through his alcohol withdrawal. Time will tell how much he clears. Has not received any sedatives in 48 hours (2) Atrial fibrillation/flutter Is this a current diagnosis for this admission?: Yes Plan: Changes Cardizem to long-acting, and otherwise continue his current Lopressor and Eliquis. (3) COPD (chronic obstructive pulmonary disease) Qualifiers: COPD type: unspecified COPD Qualified Code(s): J44.9 - Chronic obstructive pulmonary disease, unspecified Is this a current diagnosis for this admission?: Yes Plan: Stable on 3 L per nasal cannula (4) Hypertension Qualifiers: Hypertension type: essential hypertension Qualified Code(s): I10 - Essential (primary) hypertension Is this a current diagnosis for this admission?: Yes Plan: Well-controlled on current medication. (5) Alcohol withdrawal Qualifiers: Complication of substance-induced condition: with delirium Qualified Code(s ): F10.231 - Alcohol dependence with withdrawal delirium Is this a current diagnosis for this admission?: Yes Plan: Resolved (6) Debility Is this a current diagnosis for this admission?: Yes Plan: Have physical therapy start working with him.
--- NOTE | 2018-01-13 13:13 | EKG REPORT ---
SEVERITY:- ABNORMAL ECG - SINUS OR ECTOPIC ATRIAL RHYTHM MULTIPLE ATRIAL PREMATURE COMPLEXES FIRST DEGREE AV BLOCK ABNORMAL T, CONSIDER ISCHEMIA, DIFFUSE LEADS : Confirmed by: Geraldo Ferreira MD 13-Jan-2018 13:12:39
[2018-01-13] MEDS: ATORVASTATIN CALCIUM 20 MG TABLET PO SCH (22:29)
[2018-01-14] MEDS: LEVALBUTEROL HCL NEB 0.63 MG/3 ML AMPUL NEB SCH ×2 (02:20→08:03)
[2018-01-14] MEDS: LANSOPRAZOLE 30 MG TAB.RAP.DR PO SCH (06:19)
[2018-01-14] MEDS: METOPROLOL TARTRATE 25 MG TABLET PO SCH ×2 (06:19→17:42)
[2018-01-14] MEDS: DOCUSATE SODIUM 100 MG CAPSULE PO SCH ×2 (10:45→17:41)
[2018-01-14] MEDS: ASPIRIN 81 MG TABLET, ENT COATED PO SCH (10:46)
[2018-01-14] MEDS: DILTIAZEM HCL 180 MG CAPSULE.CR PO SCH (10:46)
[2018-01-14] MEDS: DIGOXIN 0.125 MG TABLET PO SCH (10:46)
[2018-01-14] MEDS: THIAMINE HCL 100 MG TABLET PO SCH (10:46)
[2018-01-14] MEDS: APIXABAN 5 MG TABLET PO SCH ×2 (10:47→17:42)
[2018-01-14] MEDS: FLUTICASONE/SALMETEROL DISKUS 500-50 MCG/DOSE IH SCH ×2 (10:47→21:29)
[2018-01-14] MEDS ORDERED: LEVALBUTEROL HCL NEB 0.63 MG/3 ML AMPUL NEB PRN (12:26)
--- NOTE | 2018-01-14 12:35 | PDOC PROGRESS REPORT ---
Subjective Progress Note for:: 01/14/18 Subjective:: He continues to wake up, though is still quite obviously confused. Continues to call the nurses vulgar names, and has been occasionally quite agitated. PT pillo noted Reason For Visit: PAROXYSMAL ATRIAL FLUTTER Physical Exam Vital Signs: Temp Pulse Resp BP Pulse Ox 97.6 F 106 H 20 139/65 H 99 01/14/18 07:19 01/14/18 07:19 01/14/18 07:19 01/14/18 07:19 01/14/18 07:19 Intake & Output 01/13/18 01/14/18 01/15/18 05:59 05:59 05:59 Intake Total 425 200 0 Balance 425 200 0 Weight 148 lb 12.992 oz General appearance: PRESENT: no acute distress. ABSENT: cooperative Respiratory exam: PRESENT: clear to auscultation amina Cardiovascular exam: PRESENT: RRR GI/Abdominal exam: PRESENT: soft Neurological exam: PRESENT: awake, oriented to person. ABSENT: oriented to place, oriented to time, oriented to situation Psychiatric exam: PRESENT: unusual affect Skin exam: PRESENT: dry, warm Results Laboratory Results: 01/11/18 04:41 01/11/18 04:41 Impressions: Chest/Abdomen CTA 01/04/18 17:22 IMPRESSION: 1. There is no evidence of pulmonary emboli. 2. Centrilobular emphysema. Subsegmental atelectasis. Small pleural effusions. Calcified pleural plaques. Head CT 01/08/18 00:00 IMPRESSION: CHRONIC CHANGES OF ATROPHY AND MICROVASCULAR ISCHEMIA. NO CT EVIDENCE OF ACUTE INTRACRANIAL HEMORRHAGE OR LARGE TERRITORY ACUTE ISCHEMIA. EVIDENCE OF ACUTE STROKE: NO. Assessment & Plan - Diagnosis (1) Acute encephalopathy Is this a current diagnosis for this admission?: Yes Plan: Certainly not safe to live independently currently. Through his alcohol withdrawal. Time will tell how much he clears. Has not received any sedatives in about 3 days. 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 (2) Atrial fibrillation/flutter Is this a current diagnosis for this admission?: Yes Plan: Continue his current medications (3) COPD (chronic obstructive pulmonary disease) Qualifiers: COPD type: unspecified COPD Qualified Code(s): J44.9 - Chronic obstructive pulmonary disease, unspecified Is this a current diagnosis for this admission?: Yes Plan: Stable on 3 L per nasal cannula (4) Hypertension Qualifiers: Hypertension type: essential hypertension Qualified Code(s): I10 - Essential (primary) hypertension Is this a current diagnosis for this admission?: Yes Plan: Well-controlled on current medication. (5) Alcohol withdrawal Qualifiers: Complication of substance-induced condition: with delirium Qualified Code(s ): F10.231 - Alcohol dependence with withdrawal delirium Is this a current diagnosis for this admission?: Yes Plan: Resolved (6) Debility Is this a current diagnosis for this admission?: Yes Plan: Continue PT
[2018-01-14] MEDS ORDERED: DIVALPROEX SODIUM 500 MG TAB.SR.24H PO ONE (13:30)
[2018-01-14] MEDS: VALPROATE SODIUM SYRUP 250 MG/5 ML UDCUP PO SCH ×2 (17:42→23:11)
[2018-01-14] MEDS: ATORVASTATIN CALCIUM 20 MG TABLET PO SCH (21:26)
[2018-01-15] MEDS: LANSOPRAZOLE 30 MG TAB.RAP.DR PO SCH (06:47)
[2018-01-15] MEDS: VALPROATE SODIUM SYRUP 250 MG/5 ML UDCUP PO SCH ×3 (06:47→17:52)
[2018-01-15] MEDS: METOPROLOL TARTRATE 25 MG TABLET PO SCH ×2 (06:48→17:50)
[2018-01-15] MEDS: DIGOXIN 0.125 MG TABLET PO SCH (10:46)
[2018-01-15] MEDS: APIXABAN 5 MG TABLET PO SCH ×2 (10:47→17:50)
[2018-01-15] MEDS: ASPIRIN 81 MG TABLET, ENT COATED PO SCH (10:47)
[2018-01-15] MEDS: THIAMINE HCL 100 MG TABLET PO SCH (10:47)
[2018-01-15] MEDS: FLUTICASONE/SALMETEROL DISKUS 500-50 MCG/DOSE IH SCH ×2 (10:47→21:10)
[2018-01-15] MEDS: DILTIAZEM HCL 180 MG CAPSULE.CR PO SCH (10:47)
[2018-01-15] MEDS: DOCUSATE SODIUM 100 MG CAPSULE PO SCH ×2 (10:47→17:50)
[2018-01-15] MEDS ORDERED: DIVALPROEX SODIUM 500 MG TAB.SR.24H PO SCH (11:00)
--- NOTE | 2018-01-15 12:34 | PDOC PROGRESS REPORT ---
Subjective Progress Note for:: 01/15/18 Subjective:: Continues to clear daily. No new complaints. Reason For Visit: PAROXYSMAL ATRIAL FLUTTER Physical Exam Vital Signs: Temp Pulse Resp BP Pulse Ox 97.3 F 58 L 20 130/97 H 97 01/15/18 12:00 01/15/18 12:00 01/15/18 12:00 01/15/18 12:00 01/15/18 12:00 Intake & Output 01/14/18 01/15/18 01/16/18 05:59 05:59 05:59 Intake Total 200 150 100 Output Total 250 200 Balance 200 -100 -100 Weight 148 lb 12.992 oz 147 lb 7.828 oz General appearance: PRESENT: no acute distress Respiratory exam: PRESENT: clear to auscultation amina Cardiovascular exam: PRESENT: RRR GI/Abdominal exam: PRESENT: soft Extremities exam: ABSENT: pedal edema Musculoskeletal exam: PRESENT: normal inspection Neurological exam: PRESENT: awake, oriented to person, oriented to time. ABSENT : oriented to place Psychiatric exam: PRESENT: unusual affect Skin exam: PRESENT: warm Results Laboratory Results: 01/11/18 04:41 01/11/18 04:41 Impressions: Chest/Abdomen CTA 01/04/18 17:22 IMPRESSION: 1. There is no evidence of pulmonary emboli. 2. Centrilobular emphysema. Subsegmental atelectasis. Small pleural effusions. Calcified pleural plaques. Head CT 01/08/18 00:00 IMPRESSION: CHRONIC CHANGES OF ATROPHY AND MICROVASCULAR ISCHEMIA. NO CT EVIDENCE OF ACUTE INTRACRANIAL HEMORRHAGE OR LARGE TERRITORY ACUTE ISCHEMIA. EVIDENCE OF ACUTE STROKE: NO. Assessment & Plan - Diagnosis (1) Acute encephalopathy Is this a current diagnosis for this admission?: Yes Plan: Certainly not safe to live independently currently. Through his alcohol withdrawal. Time will tell how much he clears. 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 Continue his current medications (3) COPD (chronic obstructive pulmonary disease) Qualifiers: COPD type: unspecified COPD Qualified Code(s): J44.9 - Chronic obstructive pulmonary disease, unspecified Is this a current diagnosis for this admission?: Yes Plan: Now on room air. (4) Hypertension Qualifiers: Hypertension type: essential hypertension Qualified Code(s): I10 - Essential (primary) hypertension Is this a current diagnosis for this admission?: Yes Plan: Well-controlled on current medication. (5) Debility Is this a current diagnosis for this admission?: Yes Plan: Continue PT (6) Alcohol withdrawal Qualifiers: Complication of substance-induced condition: with delirium Qualified Code(s ): F10.231 - Alcohol dependence with withdrawal delirium Is this a current diagnosis for this admission?: Yes Plan: Resolved
[2018-01-15] MEDS: LORAZEPAM INJ 2 MG/1 ML VIAL IV PRN (19:08)
[2018-01-15] MEDS: ATORVASTATIN CALCIUM 20 MG TABLET PO SCH (21:10)
[2018-01-16] MEDS: VALPROATE SODIUM SYRUP 250 MG/5 ML UDCUP PO SCH ×4 (00:37→18:10)
[2018-01-16] MEDS ORDERED: METOPROLOL TARTRATE PF/INJ 5 MG/5 ML SDV IV ONE ×2 (02:28→02:45)
[2018-01-16] MEDS: LANSOPRAZOLE 30 MG TAB.RAP.DR PO SCH (06:21)
[2018-01-16] MEDS: METOPROLOL TARTRATE 25 MG TABLET PO SCH ×2 (06:21→18:10)
[2018-01-16] MEDS: THIAMINE HCL 100 MG TABLET PO SCH (10:51)
[2018-01-16] MEDS: ASPIRIN 81 MG TABLET, ENT COATED PO SCH (10:51)
[2018-01-16] MEDS: APIXABAN 5 MG TABLET PO SCH ×2 (10:52→18:10)
[2018-01-16] MEDS: FLUTICASONE/SALMETEROL DISKUS 500-50 MCG/DOSE IH SCH ×2 (10:52→22:00)
[2018-01-16] MEDS: DILTIAZEM HCL 180 MG CAPSULE.CR PO SCH (10:52)
[2018-01-16] MEDS: DOCUSATE SODIUM 100 MG CAPSULE PO SCH ×2 (10:52→18:12)
--- NOTE | 2018-01-16 13:06 | PDOC PROGRESS REPORT ---
Subjective Progress Note for:: 01/16/18 Subjective:: About the same as yesterday. Met with family today. They state that he has had characteristics similar to this for quite some time. They are agreeable with him going to rehab when we can find an accepting facility. Reason For Visit: PAROXYSMAL ATRIAL FLUTTER Physical Exam Vital Signs: Temp Pulse Resp BP Pulse Ox 97.5 F 78 12 111/72 99 01/16/18 12:00 01/16/18 12:00 01/16/18 12:00 01/16/18 12:00 01/16/18 12:00 Intake & Output 01/15/18 01/16/18 01/17/18 05:59 05:59 05:59 Intake Total 150 211 50 Output Total 250 250 Balance -100 -39 50 Weight 147 lb 7.828 oz 145 lb 15.136 oz General appearance: PRESENT: no acute distress Respiratory exam: PRESENT: clear to auscultation amina, decreased breath sounds, prolonged expiratory phas Cardiovascular exam: PRESENT: RRR GI/Abdominal exam: PRESENT: soft Extremities exam: PRESENT: other - No edema Neurological exam: PRESENT: awake, oriented to person, CN II-XII grossly intact. ABSENT: oriented to place, oriented to time, oriented to situation, motor sensory deficit Psychiatric exam: PRESENT: unusual affect Skin exam: PRESENT: dry, warm Results Laboratory Results: 01/11/18 04:41 01/11/18 04:41 Impressions: Chest/Abdomen CTA 01/04/18 17:22 IMPRESSION: 1. There is no evidence of pulmonary emboli. 2. Centrilobular emphysema. Subsegmental atelectasis. Small pleural effusions. Calcified pleural plaques. Head CT 01/08/18 00:00 IMPRESSION: CHRONIC CHANGES OF ATROPHY AND MICROVASCULAR ISCHEMIA. NO CT EVIDENCE OF ACUTE INTRACRANIAL HEMORRHAGE OR LARGE TERRITORY ACUTE ISCHEMIA. EVIDENCE OF ACUTE STROKE: NO. Assessment & Plan - Diagnosis (1) Acute encephalopathy Is this a current diagnosis for this admission?: Yes Plan: Certainly not safe to live independently currently. Through his alcohol withdrawal. Time will tell how much he clears. 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 fib with RVR. He was given a dose of IV Lopressor this morning and is currently in sinus rhythm. (3) COPD (chronic obstructive pulmonary disease) Qualifiers: COPD type: unspecified COPD Qualified Code(s): J44.9 - Chronic obstructive pulmonary disease, unspecified Is this a current diagnosis for this admission?: Yes Plan: Now on room air. (4) Hypertension Qualifiers: Hypertension type: essential hypertension Qualified Code(s): I10 - Essential (primary) hypertension Is this a current diagnosis for this admission?: Yes Plan: Well-controlled on current medication. (5) Debility Is this a current diagnosis for this admission?: Yes Plan: Continue PT. Will need rehab placement (6) Alcohol withdrawal Qualifiers: Complication of substance-induced condition: with delirium Qualified Code(s ): F10.231 - Alcohol dependence with withdrawal delirium Is this a current diagnosis for this admission?: Yes Plan: Resolved. But appears to have fairly persistent dementia. Time will tell much it clears
--- NOTE | 2018-01-16 16:40 | EKG REPORT ---
SEVERITY:- ABNORMAL ECG - ATRIAL FIBRILLATION, V-RATE 84-161 ABNORMAL T, CONSIDER ISCHEMIA, DIFFUSE LEADS VS LVH RELATED : Confirmed by: Flaquito Nguyen 16-Jan-2018 16:40:17
[2018-01-16] MEDS: MEMANTINE HCL 10 MG TABLET PO SCH (22:00)
[2018-01-16] MEDS: ATORVASTATIN CALCIUM 20 MG TABLET PO SCH (22:00)
[2018-01-17] MEDS: VALPROATE SODIUM SYRUP 250 MG/5 ML UDCUP PO SCH ×5 (00:25→22:54)
[2018-01-17] MEDS: METOPROLOL TARTRATE 25 MG TABLET PO SCH ×2 (06:49→17:27)
[2018-01-17] MEDS: LANSOPRAZOLE 30 MG TAB.RAP.DR PO SCH (06:49)
[2018-01-17] MEDS: THIAMINE HCL 100 MG TABLET PO SCH (09:56)
[2018-01-17] MEDS: ASPIRIN 81 MG TABLET, ENT COATED PO SCH (09:56)
[2018-01-17] MEDS: DOCUSATE SODIUM 100 MG CAPSULE PO SCH ×2 (09:56→17:27)
[2018-01-17] MEDS: APIXABAN 5 MG TABLET PO SCH ×2 (09:56→17:26)
[2018-01-17] MEDS: DILTIAZEM HCL 180 MG CAPSULE.CR PO SCH (09:56)
[2018-01-17] MEDS: FLUTICASONE/SALMETEROL DISKUS 500-50 MCG/DOSE IH SCH ×2 (10:06→22:53)
--- NOTE | 2018-01-17 14:54 | PDOC PROGRESS REPORT ---
Subjective Progress Note for:: 01/17/18 Subjective:: About the same as yesterday. Social work working on finding rehab for him Reason For Visit: PAROXYSMAL ATRIAL FLUTTER Physical Exam Vital Signs: Temp Pulse Resp BP Pulse Ox 97.5 F 86 18 123/65 94 01/17/18 07:46 01/17/18 07:46 01/17/18 07:46 01/17/18 07:46 01/17/18 07:46 Intake & Output 01/16/18 01/17/18 01/18/18 05:59 05:59 05:59 Intake Total 211 350 200 Output Total 250 Balance -39 350 200 Weight 147 lb 7.828 oz 146 lb 13.246 oz General appearance: PRESENT: no acute distress Respiratory exam: PRESENT: clear to auscultation amina Cardiovascular exam: PRESENT: RRR GI/Abdominal exam: PRESENT: soft Extremities exam: PRESENT: other - No edema Neurological exam: PRESENT: awake, oriented to person, CN II-XII grossly intact. ABSENT: oriented to place, oriented to time, oriented to situation, motor sensory deficit Skin exam: PRESENT: warm Results Laboratory Results: 01/11/18 04:41 01/11/18 04:41 Impressions: Chest/Abdomen CTA 01/04/18 17:22 IMPRESSION: 1. There is no evidence of pulmonary emboli. 2. Centrilobular emphysema. Subsegmental atelectasis. Small pleural effusions. Calcified pleural plaques. Head CT 01/08/18 00:00 IMPRESSION: CHRONIC CHANGES OF ATROPHY AND MICROVASCULAR ISCHEMIA. NO CT EVIDENCE OF ACUTE INTRACRANIAL HEMORRHAGE OR LARGE TERRITORY ACUTE ISCHEMIA. EVIDENCE OF ACUTE STROKE: NO. Assessment & Plan - Diagnosis (1) Acute encephalopathy Is this a current diagnosis for this admission?: Yes Plan: Certainly not safe to live independently currently. Through his alcohol withdrawal. Time will tell how much he clears. Continue current medications (2) Atrial fibrillation/flutter Is this a current diagnosis for this admission?: Yes Plan: Continue current medications. (3) COPD (chronic obstructive pulmonary disease) Qualifiers: COPD type: unspecified COPD Qualified Code(s): J44.9 - Chronic obstructive pulmonary disease, unspecified Is this a current diagnosis for this admission?: Yes Plan: Now on room air. (4) Hypertension Qualifiers: Hypertension type: essential hypertension Qualified Code(s): I10 - Essential (primary) hypertension Is this a current diagnosis for this admission?: Yes Plan: Well-controlled on current medication. (5) Debility Is this a current diagnosis for this admission?: Yes Plan: Continue PT. Will need rehab placement (6) Alcohol withdrawal Qualifiers: Complication of substance-induced condition: with delirium Qualified Code(s ): F10.231 - Alcohol dependence with withdrawal delirium Is this a current diagnosis for this admission?: Yes Plan: Resolved. But appears to have fairly persistent dementia. Time will tell much it clears
[2018-01-17] MEDS: LORAZEPAM INJ 2 MG/1 ML VIAL IV PRN (15:56)
[2018-01-17] MEDS: ATORVASTATIN CALCIUM 20 MG TABLET PO SCH (22:53)
[2018-01-17] MEDS: MEMANTINE HCL 10 MG TABLET PO SCH (22:53)
[2018-01-18] MEDS: VALPROATE SODIUM SYRUP 250 MG/5 ML UDCUP PO SCH ×4 (05:26→23:51)
[2018-01-18] MEDS: METOPROLOL TARTRATE 25 MG TABLET PO SCH (05:26)
[2018-01-18] MEDS: LANSOPRAZOLE 30 MG TAB.RAP.DR PO SCH (05:26)
[2018-01-18] MEDS ORDERED: ONDANSETRON HCL INJ/PF 4 MG/2 ML SDV IV PRN (07:30)
[2018-01-18] MEDS: APIXABAN 5 MG TABLET PO SCH ×2 (10:51→18:06)
[2018-01-18] MEDS: FLUTICASONE/SALMETEROL DISKUS 500-50 MCG/DOSE IH SCH ×2 (10:51→21:51)
[2018-01-18] MEDS: THIAMINE HCL 100 MG TABLET PO SCH (10:51)
[2018-01-18] MEDS: ASPIRIN 81 MG TABLET, ENT COATED PO SCH (10:51)
[2018-01-18] MEDS: DOCUSATE SODIUM 100 MG CAPSULE PO SCH ×2 (10:51→18:06)
[2018-01-18] MEDS: DILTIAZEM HCL 180 MG CAPSULE.CR PO SCH (14:13)
--- NOTE | 2018-01-18 17:55 | PDOC PROGRESS REPORT ---
Subjective Progress Note for:: 01/18/18 Subjective:: 82 y.o. male initially presented with Atrial flutter and started on a Cardizem gtt. He has since been weaned off and has transitioned to PO Cardizem with appropriate rate control. The patient reportedly drinks 4-5 beers per day and while inpatient at [facility] developed alcohol withdrawal/delirium. The patient is now well outside the window for withdrawal symptoms. He is currently waiting for placement at an acute rehab facility. Upon assessment, the patient is resting comfortably in bed on room air. He is able to tell me his name and location but does not know the year or why he is at the hospital. The patient is mostly cooperative with medical staff, however he intermittently will refuse to answer questions or respond with lewd/ inappropriate remarks. Reason For Visit: PAROXYSMAL ATRIAL FLUTTER Physical Exam Vital Signs: Temp Pulse Resp BP Pulse Ox 98.1 F 65 13 154/77 H 95 01/18/18 15:30 01/18/18 15:30 01/18/18 15:30 01/18/18 15:30 01/18/18 15:30 Intake & Output 01/17/18 01/18/18 01/19/18 06:59 06:59 06:59 Intake Total 300 328 0 Balance 300 328 0 Weight 66.6 kg 66.6 kg General appearance: PRESENT: no acute distress Eye exam: PRESENT: conjunctiva pink, PERRLA Mouth exam: PRESENT: moist Teeth exam: PRESENT: poor dentation Neck exam: PRESENT: full ROM Respiratory exam: PRESENT: symmetrical, unlabored Cardiovascular exam: PRESENT: +S1, +S2 Pulses: PRESENT: normal radial pulses, normal dorsalis pedis pul GI/Abdominal exam: PRESENT: normal bowel sounds, soft. ABSENT: tenderness Rectal exam: PRESENT: deferred Extremities exam: ABSENT: full ROM Musculoskeletal exam: ABSENT: ambulatory - Able to stand at edge of bed with 2 person assist during physical therapy, full ROM Neurological exam: PRESENT: alert, awake, oriented to person, other - Patient is intermittently oriented to time, place, situation. He is very cantankerous and oftentimes chooses to ignore medical staff or intentionally answer questions empirically.. ABSENT: oriented to place, oriented to time, oriented to situation Skin exam: PRESENT: dry, warm Results Laboratory Results: 01/11/18 04:41 01/11/18 04:41 Impressions: Chest/Abdomen CTA 01/04/18 17:22 IMPRESSION: 1. There is no evidence of pulmonary emboli. 2. Centrilobular emphysema. Subsegmental atelectasis. Small pleural effusions. Calcified pleural plaques. Head CT 01/08/18 00:00 IMPRESSION: CHRONIC CHANGES OF ATROPHY AND MICROVASCULAR ISCHEMIA. NO CT EVIDENCE OF ACUTE INTRACRANIAL HEMORRHAGE OR LARGE TERRITORY ACUTE ISCHEMIA. EVIDENCE OF ACUTE STROKE: NO. Assessment & Plan - Diagnosis (1) Atrial fibrillation/flutter Is this a current diagnosis for this admission?: Yes Plan: Patient initially presented to the hospital with atrial flutter, HR>140 Rate control was initially achieved with a Cardizem GTT, was successfully transitioned to Cardizem p.o. Patient remains in NSR as long as he takes his medications, without his medications he will transition back into AFIB/AFLUTTER Continue p.o. Cardizem (2) Alcohol withdrawal Qualifiers: Complication of substance-induced condition: with delirium Qualified Code(s ): F10.231 - Alcohol dependence with withdrawal delirium Is this a current diagnosis for this admission?: Yes Plan: Patient has a history of daily EtOH use At this time, the patient is also the window for acute withdrawal symptoms The patient is cantankerous and intermittently demented but is otherwise cooperative with staff Continue p.o. thiamine (3) COPD (chronic obstructive pulmonary disease) Qualifiers: COPD type: unspecified COPD Qualified Code(s): J44.9 - Chronic obstructive pulmonary disease, unspecified Is this a current diagnosis for this admission?: Yes Plan: Patient endorses a history of COPD however his SPO2>92% on room air Lung sounds clear to auscultation Continue Spiriva and Advair (4) Debility Is this a current diagnosis for this admission?: Yes Plan: Secondary to prolonged hospital stay and lack of daily exercise PT/OT currently working with patient Able to stand at side of bed with 2 person assist, unable to ambulate Patient will require acute rehab post discharge Discharge planning aware, patient awaiting placement (5) Hypertension Qualifiers: Hypertension type: essential hypertension Qualified Code(s): I10 - Essential (primary) hypertension Is this a current diagnosis for this admission?: Yes Plan: History of hypertension Continue current regimen - Time Time Spent with patient: 15-24 minutes Medications reviewed and adjusted accordingly: Yes Anticipated discharge: Acute Rehab - Inpatient Certification Based on my medical assessment, after consideration of the patient's comorbidities, presenting symptoms, or acuity I expect that the services needed warrant INPATIENT care.: Yes I certify that my determination is in accordance with my understanding of Medicare's requirements for reasonable and necessary INPATIENT services [42 CFR 412.3e].: Yes Medical Necessity: Risk of Complication if Not Cared For in Hospital - Plan Summary Plan Summary: Transfer from [facility] to acute rehab
[2018-01-18] MEDS: METOPROLOL TARTRATE 50 MG TABLET PO SCH (18:06)
[2018-01-18] MEDS: ATORVASTATIN CALCIUM 20 MG TABLET PO SCH (21:51)
[2018-01-18] MEDS: MEMANTINE HCL 10 MG TABLET PO SCH (21:51)
[2018-01-19] MEDS: METOPROLOL TARTRATE 50 MG TABLET PO SCH ×2 (04:58→18:42)
[2018-01-19] MEDS: LANSOPRAZOLE 30 MG TAB.RAP.DR PO SCH (04:59)
[2018-01-19] MEDS: VALPROATE SODIUM SYRUP 250 MG/5 ML UDCUP PO SCH ×4 (05:00→22:37)
[2018-01-19] MEDS: APIXABAN 5 MG TABLET PO SCH ×2 (09:31→18:42)
[2018-01-19] MEDS: ACETAMINOPHEN 325 MG TABLET PO PRN (09:31)
[2018-01-19] MEDS: DILTIAZEM HCL 180 MG CAPSULE.CR PO SCH (09:31)
[2018-01-19] MEDS: THIAMINE HCL 100 MG TABLET PO SCH (09:31)
[2018-01-19] MEDS: ASPIRIN 81 MG TABLET, ENT COATED PO SCH (09:32)
[2018-01-19] MEDS: FLUTICASONE/SALMETEROL DISKUS 500-50 MCG/DOSE IH SCH ×2 (09:32→22:35)
[2018-01-19] MEDS: DOCUSATE SODIUM 100 MG CAPSULE PO SCH ×2 (09:32→18:42)
[2018-01-19] MEDS: LORAZEPAM INJ 2 MG/1 ML VIAL IV PRN (16:39)
--- NOTE | 2018-01-19 18:01 | PDOC PROGRESS REPORT ---
Subjective Progress Note for:: 01/19/18 Subjective:: 82 y.o. male initially presented with Atrial flutter and started on a Cardizem gtt. He has since been weaned off and has transitioned to PO Cardizem with appropriate rate control. The patient reportedly drinks 4-5 beers per day and while inpatient at [facility] developed alcohol withdrawal/delirium. The patient is now well outside the window for withdrawal symptoms. He is currently waiting for placement at an acute rehab facility. Upon assessment, the patient is resting comfortably in bed on room air. The patient is mostly cooperative with medical staff, however he intermittently will refuse to answer questions or respond with lewd/inappropriate remarks. Currently awaiting placement in an acute rehab facility Reason For Visit: PAROXYSMAL ATRIAL FLUTTER Physical Exam Vital Signs: Temp Pulse Resp BP Pulse Ox 97.4 F 62 12 142/59 H 94 01/19/18 15:46 01/19/18 15:46 01/19/18 15:46 01/19/18 15:46 01/19/18 15:46 Intake & Output 01/18/18 01/19/18 01/20/18 06:59 06:59 06:59 Intake Total 328 90 50 Balance 328 90 50 Weight 66.6 kg 63.5 kg General appearance: PRESENT: no acute distress Eye exam: PRESENT: conjunctiva pink, PERRLA Mouth exam: PRESENT: moist Teeth exam: PRESENT: poor dentation Neck exam: PRESENT: full ROM Respiratory exam: PRESENT: clear to auscultation amina, symmetrical, unlabored Pulses: PRESENT: normal radial pulses, +1 pedal pulses bilateral GI/Abdominal exam: PRESENT: normal bowel sounds, soft. ABSENT: tenderness Rectal exam: PRESENT: deferred Extremities exam: PRESENT: full ROM. ABSENT: pedal edema Musculoskeletal exam: PRESENT: full ROM. ABSENT: ambulatory Neurological exam: PRESENT: alert, awake, oriented to person Skin exam: PRESENT: dry, intact, warm Results Laboratory Results: 01/11/18 04:41 01/11/18 04:41 Impressions: Chest/Abdomen CTA 01/04/18 17:22 IMPRESSION: 1. There is no evidence of pulmonary emboli. 2. Centrilobular emphysema. Subsegmental atelectasis. Small pleural effusions. Calcified pleural plaques. Head CT 01/08/18 00:00 IMPRESSION: CHRONIC CHANGES OF ATROPHY AND MICROVASCULAR ISCHEMIA. NO CT EVIDENCE OF ACUTE INTRACRANIAL HEMORRHAGE OR LARGE TERRITORY ACUTE ISCHEMIA. EVIDENCE OF ACUTE STROKE: NO. Status: Imported from PACS Assessment & Plan - Diagnosis (1) Atrial fibrillation/flutter Is this a current diagnosis for this admission?: Yes Plan: Patient initially presented to the hospital with atrial flutter, HR>140 Rate control was initially achieved with a Cardizem GTT, was successfully transitioned to Cardizem p.o. Patient remains in NSR as long as he takes his medications, without his medications he will transition back into AFIB/AFLUTTER Continue p.o. Cardizem (2) Alcohol withdrawal Qualifiers: Complication of substance-induced condition: with delirium Qualified Code(s ): F10.231 - Alcohol dependence with withdrawal delirium Is this a current diagnosis for this admission?: Yes Plan: Patient has a history of daily EtOH use At this time, the patient is also the window for acute withdrawal symptoms The patient is cantankerous and intermittently demented but is otherwise cooperative with staff Continue p.o. thiamine (3) COPD (chronic obstructive pulmonary disease) Qualifiers: COPD type: unspecified COPD Qualified Code(s): J44.9 - Chronic obstructive pulmonary disease, unspecified Is this a current diagnosis for this admission?: Yes Plan: Patient endorses a history of COPD however his SPO2>92% on room air Lung sounds clear to auscultation Continue Reneaiva and Laila (4) Debility Is this a current diagnosis for this admission?: Yes Plan: Secondary to prolonged hospital stay and lack of daily exercise PT/OT currently working with patient Able to stand at side of bed with 2 person assist, unable to ambulate Patient will require acute rehab post discharge Discharge planning aware, patient awaiting placement (5) Hypertension Qualifiers: Hypertension type: essential hypertension Qualified Code(s): I10 - Essential (primary) hypertension Is this a current diagnosis for this admission?: Yes Plan: History of hypertension Continue current regimen - Time Time Spent with patient: 15-24 minutes Medications reviewed and adjusted accordingly: Yes Anticipated discharge: Home - Inpatient Certification Based on my medical assessment, after consideration of the patient's comorbidities, presenting symptoms, or acuity I expect that the services needed warrant INPATIENT care.: Yes I certify that my determination is in accordance with my understanding of Medicare's requirements for reasonable and necessary INPATIENT services [42 CFR 412.3e].: Yes Medical Necessity: Risk of Complication if Not Cared For in Hospital - Plan Summary Plan Summary: discharge to acute rehab
[2018-01-19] MEDS: ATORVASTATIN CALCIUM 20 MG TABLET PO SCH (22:34)
[2018-01-19] MEDS: MEMANTINE HCL 10 MG TABLET PO SCH (22:34)
[2018-01-20] MEDS: METOPROLOL TARTRATE 50 MG TABLET PO SCH ×2 (05:40→18:24)
[2018-01-20] MEDS: LANSOPRAZOLE 30 MG TAB.RAP.DR PO SCH (05:41)
[2018-01-20] MEDS: VALPROATE SODIUM SYRUP 250 MG/5 ML UDCUP PO SCH ×4 (05:41→23:35)
[2018-01-20] MEDS: DILTIAZEM HCL 180 MG CAPSULE.CR PO SCH (12:09)
[2018-01-20] MEDS: APIXABAN 5 MG TABLET PO SCH ×2 (12:09→18:24)
[2018-01-20] MEDS: THIAMINE HCL 100 MG TABLET PO SCH (12:10)
[2018-01-20] MEDS: ASPIRIN 81 MG TABLET, ENT COATED PO SCH (12:10)
[2018-01-20] MEDS: DOCUSATE SODIUM 100 MG CAPSULE PO SCH ×2 (12:10→18:24)
[2018-01-20] MEDS: FLUTICASONE/SALMETEROL DISKUS 500-50 MCG/DOSE IH SCH ×2 (12:11→22:20)
--- NOTE | 2018-01-20 14:29 | PDOC PROGRESS REPORT ---
Subjective Progress Note for:: 01/20/18 Subjective:: 82 y.o. male initially presented with Atrial flutter and started on a Cardizem gtt. He has since been weaned off and has transitioned to PO Cardizem with appropriate rate control. The patient reportedly drinks 4-5 beers per day and while inpatient at [facility] developed alcohol withdrawal/delirium. The patient is now well outside the window for withdrawal symptoms. He is currently waiting for placement at an acute rehab facility. Upon assessment, the patient is resting comfortably in bed on room air. The patient is mostly cooperative with medical staff, he is oriented to self and place. He is unable to tell me the year or why he is in the hospital. States, " I had to bring my here for help." Currently awaiting placement in an acute rehab facility. No changes to his medical care today. Reason For Visit: PAROXYSMAL ATRIAL FLUTTER Physical Exam Vital Signs: Temp Pulse Resp BP Pulse Ox 97.5 F 77 19 149/70 H 97 01/20/18 04:19 01/20/18 04:19 01/20/18 04:19 01/20/18 04:19 01/20/18 04:19 Intake & Output 01/19/18 01/20/18 01/21/18 06:59 06:59 06:59 Intake Total 90 260 0 Balance 90 260 0 Weight 63.5 kg 64.9 kg General appearance: PRESENT: no acute distress, disheveled Head exam: PRESENT: atraumatic Eye exam: PRESENT: conjunctiva pink, PERRLA Mouth exam: PRESENT: moist Teeth exam: PRESENT: poor dentation Neck exam: PRESENT: full ROM Respiratory exam: PRESENT: clear to auscultation amina, symmetrical, unlabored Cardiovascular exam: PRESENT: irregular rhythm Pulses: PRESENT: normal radial pulses, normal dorsalis pedis pul GI/Abdominal exam: PRESENT: normal bowel sounds, soft. ABSENT: tenderness Rectal exam: PRESENT: deferred Extremities exam: PRESENT: full ROM Musculoskeletal exam: PRESENT: full ROM. ABSENT: ambulatory Neurological exam: PRESENT: alert, awake, oriented to person, oriented to place. ABSENT: oriented to time, oriented to situation Skin exam: PRESENT: dry, intact, warm Results Laboratory Results: 01/11/18 04:41 01/11/18 04:41 Impressions: Chest/Abdomen CTA 01/04/18 17:22 IMPRESSION: 1. There is no evidence of pulmonary emboli. 2. Centrilobular emphysema. Subsegmental atelectasis. Small pleural effusions. Calcified pleural plaques. Head CT 01/08/18 00:00 IMPRESSION: CHRONIC CHANGES OF ATROPHY AND MICROVASCULAR ISCHEMIA. NO CT EVIDENCE OF ACUTE INTRACRANIAL HEMORRHAGE OR LARGE TERRITORY ACUTE ISCHEMIA. EVIDENCE OF ACUTE STROKE: NO. Status: Imported from PACS Assessment & Plan - Diagnosis (1) Atrial fibrillation/flutter Is this a current diagnosis for this admission?: Yes Plan: Patient initially presented to the hospital with atrial flutter, HR>140 Rate control was initially achieved with a Cardizem GTT, was successfully transitioned to Cardizem p.o. Patient remains in NSR as long as he takes his medications, without his medications he will transition back into AFIB/AFLUTTER Continue p.o. Cardizem (2) Alcohol withdrawal Qualifiers: Complication of substance-induced condition: with delirium Qualified Code(s ): F10.231 - Alcohol dependence with withdrawal delirium Is this a current diagnosis for this admission?: Yes Plan: Patient has a history of daily EtOH use At this time, the patient is outside of the window for acute withdrawal symptoms The patient is cantankerous and intermittently demented but is otherwise cooperative with staff Continue p.o. thiamine (3) COPD (chronic obstructive pulmonary disease) Qualifiers: COPD type: unspecified COPD Qualified Code(s): J44.9 - Chronic obstructive pulmonary disease, unspecified Is this a current diagnosis for this admission?: Yes Plan: Patient endorses a history of COPD however his SPO2>92% on room air Lung sounds clear to auscultation Continue Spiriva and Advair (4) Debility Is this a current diagnosis for this admission?: Yes Plan: Secondary to prolonged hospital stay and lack of daily exercise PT/OT currently working with patient Able to stand at side of bed with 2 person assist, unable to ambulate Patient will require acute rehab post discharge Discharge planning aware, patient awaiting placement (5) Hypertension Qualifiers: Hypertension type: essential hypertension Qualified Code(s): I10 - Essential (primary) hypertension Is this a current diagnosis for this admission?: Yes Plan: History of hypertension Continue current regimen
[2018-01-20] MEDS: ATORVASTATIN CALCIUM 20 MG TABLET PO SCH (22:10)
[2018-01-20] MEDS: MEMANTINE HCL 10 MG TABLET PO SCH (22:10)
[2018-01-21] MEDS: METOPROLOL TARTRATE 50 MG TABLET PO SCH ×2 (06:16→18:29)
[2018-01-21] MEDS: VALPROATE SODIUM SYRUP 250 MG/5 ML UDCUP PO SCH ×4 (06:16→23:47)
[2018-01-21] MEDS: LANSOPRAZOLE 30 MG TAB.RAP.DR PO SCH (06:16)
[2018-01-21] MEDS: DILTIAZEM HCL 180 MG CAPSULE.CR PO SCH (11:25)
[2018-01-21] MEDS: THIAMINE HCL 100 MG TABLET PO SCH (11:26)
[2018-01-21] MEDS: APIXABAN 5 MG TABLET PO SCH ×2 (11:26→18:29)
[2018-01-21] MEDS: ASPIRIN 81 MG TABLET, ENT COATED PO SCH (11:26)
[2018-01-21] MEDS: FLUTICASONE/SALMETEROL DISKUS 500-50 MCG/DOSE IH SCH ×2 (11:26→21:12)
[2018-01-21] MEDS: DOCUSATE SODIUM 100 MG CAPSULE PO SCH ×2 (11:27→18:29)
[2018-01-21 15:48] LABS: HEMOGLOBIN 14.9 g/dL (13.5-17.0); MEAN CORPUSCULAR HEMOGLOBIN 27.4 pg (27.0-33.4); MEAN CORPUSCULAR HGB CONC 31.7 g/dL (32.0-36.0); MEAN CORPUSCULAR VOLUME 86 fl (80-97); PLATELET COUNT 301 10^3/uL (150-450); RED BLOOD COUNT 5.44 10^6/uL (4.35-5.55); RED CELL DISTRIBUTION WIDTH 16.2 % (11.5-14.0); WHITE BLOOD COUNT 10.9 10^3/uL (4.0-10.5)
[2018-01-21] MEDS ORDERED: MEGESTROL ACETATE SUSP 400 MG/10 ML UDCUP PO ONE (16:00)
[2018-01-21 16:08] LABS: ANION GAP 18 (5-19); BLOOD UREA NITROGEN 36 mg/dL (7-20); CALCIUM 9.6 mg/dL (8.4-10.2); CARBON DIOXIDE 28 mmol/L (22-30); CHLORIDE 117 mmol/L (98-107); GLUCOSE 87 mg/dL (75-110); PHOSPHORUS 4.7 mg/dL (2.5-4.5); POTASSIUM 3.7 mmol/L (3.6-5.0); SODIUM 163.1 mmol/L (137-145)
[2018-01-21] MEDS ORDERED: NORMAL SALINE 1000 ML 500 ML IV ONE (16:36)
--- NOTE | 2018-01-21 21:01 | PDOC PROGRESS REPORT ---
Subjective Progress Note for:: 01/21/18 Subjective:: 82 y.o. male initially presented with Atrial flutter and started on a Cardizem gtt. He has since been weaned off and has transitioned to PO Cardizem with appropriate rate control. The patient reportedly drinks 4-5 beers per day and while inpatient at [facility] developed alcohol withdrawal/delirium. The patient is now well outside the window for withdrawal symptoms. He is currently waiting for placement at an acute rehab facility. Upon assessment, the patient is resting comfortably in bed on room air. The patient is oriented to self only. He is not answering other questions nor is he following commands. The patient's eyes are open and he looks at medical staff when they are talking to him. Nursing staff reports that the patient has not been cooperating at mealtime, and he is refusing to eat. The patient will take a few bites of food and then spit out any other food given to him. Nursing staff reports this has been going on for approx. 3-5 days. Currently awaiting placement in an acute rehab facility. No changes to his medical care today. Reason For Visit: PAROXYSMAL ATRIAL FLUTTER Physical Exam Vital Signs: Temp Pulse Resp BP Pulse Ox 98.4 F 58 L 16 152/58 H 93 01/21/18 19:42 01/21/18 19:42 01/21/18 19:42 01/21/18 19:42 01/21/18 19:42 Intake & Output 01/20/18 01/21/18 01/22/18 06:59 06:59 06:59 Intake Total 260 305 925 Balance 260 305 925 Weight 64.9 kg 62.4 kg General appearance: PRESENT: no acute distress, disheveled Eye exam: PRESENT: conjunctiva pink, PERRLA Mouth exam: PRESENT: moist Teeth exam: PRESENT: poor dentation Neck exam: PRESENT: full ROM Respiratory exam: PRESENT: clear to auscultation amina, symmetrical, unlabored Cardiovascular exam: PRESENT: irregular rhythm Pulses: PRESENT: normal radial pulses, normal dorsalis pedis pul GI/Abdominal exam: PRESENT: normal bowel sounds, soft. ABSENT: tenderness Rectal exam: PRESENT: deferred Extremities exam: PRESENT: full ROM. ABSENT: pedal edema Musculoskeletal exam: PRESENT: full ROM. ABSENT: ambulatory Neurological exam: PRESENT: awake. ABSENT: oriented to person, oriented to place, oriented to time, oriented to situation Psychiatric exam: PRESENT: agitated, unusual affect Focused psych exam: PRESENT: restlessness Skin exam: PRESENT: dry, intact, warm Results Laboratory Results: 01/21/18 15:30 01/21/18 15:30 01/21/18 01/21/18 15:30 15:30 WBC 10.9 H RBC 5.44 Hgb 14.9 Hct 47.0 MCV 86 MCH 27.4 MCHC 31.7 L RDW 16.2 H Plt Count 301 Sodium 163.1 H Potassium 3.7 Chloride 117 H Carbon Dioxide 28 Anion Gap 18 BUN 36 H Creatinine 1.28 H Est GFR ( Amer) > 60 Est GFR (Non-Af Amer) 54 L Glucose 87 Calcium 9.6 Phosphorus 4.7 H Magnesium 2.5 H Impressions: Chest/Abdomen CTA 01/04/18 17:22 IMPRESSION: 1. There is no evidence of pulmonary emboli. 2. Centrilobular emphysema. Subsegmental atelectasis. Small pleural effusions. Calcified pleural plaques. Head CT 01/08/18 00:00 IMPRESSION: CHRONIC CHANGES OF ATROPHY AND MICROVASCULAR ISCHEMIA. NO CT EVIDENCE OF ACUTE INTRACRANIAL HEMORRHAGE OR LARGE TERRITORY ACUTE ISCHEMIA. EVIDENCE OF ACUTE STROKE: NO. Status: Imported from PACS Assessment & Plan - Diagnosis (1) Anorexia Is this a current diagnosis for this admission?: Yes Plan: The patient is refusing to eat. He will tolerate a few bites of food at each meal and then refuse to eat the rest of his meal tray. He only takes a few sips of water/juice at each meal Will check STAT CBC and CMP to look for electrolyte derangements and renal function Initiate Megace to help stimulate appetite If patient's PO intake does not increase by tomorrow, will contact medical POA regarding the need for nasogastric feeding tube (2) Atrial fibrillation/flutter Is this a current diagnosis for this admission?: Yes Plan: Patient initially presented to the hospital with atrial flutter, HR>140 Rate control was initially achieved with a Cardizem GTT, was successfully transitioned to Cardizem p.o. Patient remains in NSR as long as he takes his medications, without his medications he will transition back into AFIB/AFLUTTER Continue p.o. Cardizem (3) Alcohol withdrawal Qualifiers: Complication of substance-induced condition: with delirium Qualified Code(s ): F10.231 - Alcohol dependence with withdrawal delirium Is this a current diagnosis for this admission?: Yes Plan: Patient has a history of daily EtOH use At this time, the patient is outside of the window for acute withdrawal symptoms The patient is cantankerous and intermittently demented but is otherwise cooperative with staff Continue p.o. thiamine (4) COPD (chronic obstructive pulmonary disease) Qualifiers: COPD type: unspecified COPD Qualified Code(s): J44.9 - Chronic obstructive pulmonary disease, unspecified Is this a current diagnosis for this admission?: Yes Plan: Patient endorses a history of COPD however his SPO2>92% on room air Lung sounds clear to auscultation Continue Spiriva and Advair (5) Debility Is this a current diagnosis for this admission?: Yes Plan: Secondary to prolonged hospital stay and lack of daily exercise PT/OT currently working with patient Able to stand at side of bed with 2 person assist, unable to ambulate Patient will require acute rehab post discharge Discharge planning aware, patient awaiting placement (6) Hypertension Qualifiers: Hypertension type: essential hypertension Qualified Code(s): I10 - Essential (primary) hypertension Is this a current diagnosis for this admission?: Yes Plan: History of hypertension Continue current regimen - Time Time Spent with patient: 15-24 minutes Medications reviewed and adjusted accordingly: Yes Anticipated discharge: Acute Rehab - Inpatient Certification Based on my medical assessment, after consideration of the patient's comorbidities, presenting symptoms, or acuity I expect that the services needed warrant INPATIENT care.: Yes I certify that my determination is in accordance with my understanding of Medicare's requirements for reasonable and necessary INPATIENT services [42 CFR 412.3e].: Yes Medical Necessity: Need For IV Fluids, Risk of Complication if Not Cared For in Hospital
[2018-01-21] MEDS: MEMANTINE HCL 10 MG TABLET PO SCH (21:09)
[2018-01-21] MEDS: ATORVASTATIN CALCIUM 20 MG TABLET PO SCH (21:09)
[2018-01-21] MEDS: NORMAL SALINE 1000 ML 1,000 ML IV PRN (23:37)
[2018-01-22] MEDS: METOPROLOL TARTRATE 50 MG TABLET PO SCH (05:36)
[2018-01-22] MEDS: VALPROATE SODIUM SYRUP 250 MG/5 ML UDCUP PO SCH ×2 (05:36→11:38)
[2018-01-22] MEDS: LANSOPRAZOLE 30 MG TAB.RAP.DR PO SCH (05:36)
[2018-01-22 08:03] LABS: HEMATOCRIT 43.2 % (37.9-51.0); HEMOGLOBIN 13.7 g/dL (13.5-17.0); MEAN CORPUSCULAR HEMOGLOBIN 27.5 pg (27.0-33.4); MEAN CORPUSCULAR HGB CONC 31.8 g/dL (32.0-36.0); MEAN CORPUSCULAR VOLUME 86 fl (80-97); PLATELET COUNT 236 10^3/uL (150-450); RED CELL DISTRIBUTION WIDTH 16.2 % (11.5-14.0); WHITE BLOOD COUNT 9.9 10^3/uL (4.0-10.5)
[2018-01-22 08:15] LABS: ANION GAP 13 (5-19); BLOOD UREA NITROGEN 31 mg/dL (7-20); CALCIUM 8.9 mg/dL (8.4-10.2); CARBON DIOXIDE 26 mmol/L (22-30); CHLORIDE 122 mmol/L (98-107); GLUCOSE 75 mg/dL (75-110); PHOSPHORUS 3.6 mg/dL (2.5-4.5); POTASSIUM 3.6 mmol/L (3.6-5.0); SODIUM 161.2 mmol/L (137-145)
[2018-01-22] MEDS ORDERED: MEGESTROL ACETATE SUSP 400 MG/10 ML UDCUP PO SCH (10:00)
[2018-01-22] MEDS: DILTIAZEM HCL 180 MG CAPSULE.CR PO SCH (11:36)
[2018-01-22] MEDS: ASPIRIN 81 MG TABLET, ENT COATED PO SCH (11:37)
[2018-01-22] MEDS: DOCUSATE SODIUM 100 MG CAPSULE PO SCH ×2 (11:37→18:54)
[2018-01-22] MEDS: APIXABAN 5 MG TABLET PO SCH (11:37)
[2018-01-22] MEDS: THIAMINE HCL 100 MG TABLET PO SCH (11:37)
[2018-01-22] MEDS: FLUTICASONE/SALMETEROL DISKUS 500-50 MCG/DOSE IH SCH ×2 (11:38→22:30)
[2018-01-22] MEDS: NORMAL SALINE 1000 ML 1,000 ML IV PRN (11:41)
[2018-01-22] MEDS ORDERED: DILTIAZEM HCL INJ 25 MG/5 ML VIAL ONE (13:15)
[2018-01-22] MEDS ORDERED: DILTIAZEM HCL INJ 25 MG/5 ML VIAL IV ONE ×2 (14:00→15:00)
[2018-01-22] MEDS ORDERED: PHARMACY COMMUNICATION ORDER MC NR (16:45)
--- NOTE | 2018-01-22 16:55 | PDOC PROGRESS REPORT ---
Subjective Progress Note for:: 01/22/18 Subjective:: 82 y.o. male initially presented with Atrial flutter and started on a Cardizem gtt. He has since been weaned off and has transitioned to PO Cardizem with appropriate rate control. The patient reportedly drinks 4-5 beers per day and while inpatient at [facility] developed alcohol withdrawal/delirium. The patient is now well outside the window for withdrawal symptoms. He is currently waiting for placement at an acute rehab facility. Upon assessment, the patient is resting comfortably in bed on room air. The patient is is not answering questions nor is he following commands. Nursing staff reports he will intermittently exhibit this behavior, and other times he will say lewd comments or expletives directed at the staff. He was observed spitting out his medications early this morning. The patient's eyes are open and he looks at medical staff when they are talking to him. The patient is continuing to refuse to eat. Family has been notified, they wish to pursue the placement of a feeding tube. Surgery has been notified. Additionally, nursing staff reports they are concerned about possible aspiration. The patient was able to tolerate one spoonful of pudding from his lunch tray. Following his ingestion, the patient was observed to be coughing for approximately 20-30 minutes. He did not become hypoxic, his SPO2 remained > 94%. His vital signs remained relatively stable, however the patient did experience a degree of distress. His heart rate increased to 160, his rhythm was rapid A. fib. Nursing staff was able to suction his oropharynx. Additionally , the patient was given 2 boluses of Cardizem 10 mg IV. Following this, his heart rate returned to normal. Currently awaiting placement in an acute rehab facility. No changes to his medical care today. Reason For Visit: PAROXYSMAL ATRIAL FLUTTER Physical Exam Vital Signs: Temp Pulse Resp BP Pulse Ox 97.7 F 150 H 18 118/75 97 01/22/18 11:02 01/22/18 12:57 01/22/18 11:02 01/22/18 12:57 01/22/18 12:57 Intake & Output 01/21/18 01/22/18 01/23/18 06:59 06:59 06:59 Intake Total 305 1844 Balance 305 1844 Weight 62.4 kg 63 kg General appearance: PRESENT: no acute distress Head exam: PRESENT: atraumatic Eye exam: PRESENT: conjunctiva pink, PERRLA Mouth exam: PRESENT: moist Teeth exam: PRESENT: poor dentation Neck exam: PRESENT: full ROM Respiratory exam: PRESENT: clear to auscultation amina, symmetrical, unlabored Cardiovascular exam: PRESENT: irregular rhythm Pulses: PRESENT: normal radial pulses, normal dorsalis pedis pul Vascular exam: PRESENT: normal capillary refill GI/Abdominal exam: PRESENT: normal bowel sounds, soft. ABSENT: tenderness Rectal exam: PRESENT: deferred Extremities exam: PRESENT: full ROM Musculoskeletal exam: PRESENT: full ROM. ABSENT: ambulatory Neurological exam: PRESENT: altered Psychiatric exam: PRESENT: unusual affect Skin exam: PRESENT: dry, intact, warm Results Laboratory Results: 01/22/18 07:11 01/22/18 07:11 01/22/18 01/22/18 07:11 07:11 WBC 9.9 RBC 5.00 Hgb 13.7 Hct 43.2 MCV 86 MCH 27.5 MCHC 31.8 L RDW 16.2 H Plt Count 236 Sodium 161.2 H Potassium 3.6 Chloride 122 H Carbon Dioxide 26 Anion Gap 13 BUN 31 H Creatinine 1.08 Est GFR ( Amer) > 60 Est GFR (Non-Af Amer) > 60 Glucose 75 Calcium 8.9 Phosphorus 3.6 Magnesium 2.4 H Impressions: Chest/Abdomen CTA 01/04/18 17:22 IMPRESSION: 1. There is no evidence of pulmonary emboli. 2. Centrilobular emphysema. Subsegmental atelectasis. Small pleural effusions. Calcified pleural plaques. Head CT 01/08/18 00:00 IMPRESSION: CHRONIC CHANGES OF ATROPHY AND MICROVASCULAR ISCHEMIA. NO CT EVIDENCE OF ACUTE INTRACRANIAL HEMORRHAGE OR LARGE TERRITORY ACUTE ISCHEMIA. EVIDENCE OF ACUTE STROKE: NO. Status: Imported from PACS Assessment & Plan - Diagnosis (1) Anorexia Is this a current diagnosis for this admission?: Yes Plan: The patient is refusing to eat. Today he will only eat 1 bite of food from his meal tray, then refuse to eat the rest. He only takes a few sips of water/juice at each meal Initiated Megace to help stimulate appetite Patient's medical POA, Lisandro Snowden Jr, would like to pursue a feeding tube. Will attempt NG tube placement today to initiate enteral feeding. Surgery has been consulted for PEG tube placement. (2) Atrial fibrillation/flutter Is this a current diagnosis for this admission?: Yes Plan: Patient initially presented to the hospital with atrial flutter, HR>140 Rate control was initially achieved with a Cardizem GTT, was successfully transitioned to Cardizem p.o. Patient remains in NSR as long as he takes his medications, without his medications he will transition back into AFIB/AFLUTTER Continue p.o. Cardizem (3) Alcohol withdrawal Qualifiers: Complication of substance-induced condition: with delirium Qualified Code(s ): F10.231 - Alcohol dependence with withdrawal delirium Is this a current diagnosis for this admission?: Yes Plan: Patient has a history of daily EtOH use At this time, the patient is outside of the window for acute withdrawal symptoms The patient is cantankerous and intermittently demented but is otherwise cooperative with staff Continue p.o. thiamine (4) COPD (chronic obstructive pulmonary disease) Qualifiers: COPD type: unspecified COPD Qualified Code(s): J44.9 - Chronic obstructive pulmonary disease, unspecified Is this a current diagnosis for this admission?: Yes Plan: Patient endorses a history of COPD however his SPO2>92% on room air Lung sounds clear to auscultation Continue Spiriva and Advair (5) Debility Is this a current diagnosis for this admission?: Yes Plan: Secondary to prolonged hospital stay and lack of daily exercise PT/OT currently working with patient Able to stand at side of bed with 2 person assist, unable to ambulate Patient will require acute rehab post discharge Discharge planning aware, patient awaiting placement (6) Hypertension Qualifiers: Hypertension type: essential hypertension Qualified Code(s): I10 - Essential (primary) hypertension Is this a current diagnosis for this admission?: Yes Plan: History of hypertension Continue current regimen - Time Time Spent with patient: 15-24 minutes Anticipated discharge: Home - Inpatient Certification Based on my medical assessment, after consideration of the patient's comorbidities, presenting symptoms, or acuity I expect that the services needed warrant INPATIENT care.: Yes I certify that my determination is in accordance with my understanding of Medicare's requirements for reasonable and necessary INPATIENT services [42 CFR 412.3e].: Yes Medical Necessity: Risk of Complication if Not Cared For in Hospital
[2018-01-22] MEDS ORDERED: ACETAMINOPHEN 325 MG TABLET NG PRN (16:56)
[2018-01-22] MEDS: APIXABAN 5 MG TABLET NG SCH (18:54)
[2018-01-22] MEDS: VALPROATE SODIUM SYRUP 250 MG/5 ML UDCUP NG SCH ×2 (18:54→23:12)
[2018-01-22] MEDS: METOPROLOL TARTRATE 50 MG TABLET NG SCH (18:55)
--- NOTE | 2018-01-22 19:51 | RADIOLOGY REPORT (SQ) ---
EXAM DESCRIPTION: KUB/ABDOMEN (SINGLE VIEW) COMPLETED DATE/TIME: 01/22/2018 6:52 pm REASON FOR STUDY: Check Placement of NG Tube COMPARISON: None. TECHNIQUE: AP portable view centered over diaphragm. LIMITATIONS: None. FINDINGS: Nasogastric tube tip is in the stomach. IMPRESSION: Nasogastric tube in the stomach. TECHNICAL DOCUMENTATION: JOB ID: [id number] [employer]- All Rights Reserved Reading location - IP/workstation name: [email or web address]
[2018-01-22] MEDS: MEMANTINE HCL 10 MG TABLET NG SCH (22:14)
[2018-01-22] MEDS: ATORVASTATIN CALCIUM 20 MG TABLET NG SCH (22:14)
[2018-01-23] MEDS: VALPROATE SODIUM SYRUP 250 MG/5 ML UDCUP NG SCH ×3 (05:53→17:46)
[2018-01-23] MEDS: METOPROLOL TARTRATE 50 MG TABLET NG SCH ×2 (05:53→17:46)
[2018-01-23] MEDS: LANSOPRAZOLE 30 MG TAB.RAP.DR NG SCH (05:57)
[2018-01-23] MEDS ORDERED: GLUCAGON,HUMAN RECOMB 1 MG INJ SUBCUT PRN (06:02)
[2018-01-23] MEDS ORDERED: DEXTROSE 50%-WATER 25 GM/50 ML DISP.SYRIN IV PRN ×2 (06:02)
[2018-01-23] MEDS ORDERED: DEXTROSE 40% GEL 15 GM TUBE PO PRN ×2 (06:02)
[2018-01-23 07:06] LABS: ABSOLUTE BASOPHILS # (AUTO) 0.1 10^3/uL (0.0-0.2); ABSOLUTE EOSINOPHILS # (AUTO) 0.1 10^3/uL (0.0-0.6); ABSOLUTE LYMPHOCYTES (AUTO) 2.2 10^3/uL (0.5-4.7); ABSOLUTE MONOCYTES (AUTO) 1.5 10^3/uL (0.1-1.4); ABSOLUTE NEUT (AUTO) 8.9 10^3/uL (1.7-8.2); BASOPHILS % (AUTO) 0.6 % (0-2); EOSINOPHILS % (AUTO) 0.5 % (0-6); HEMATOCRIT 40.8 % (37.9-51.0); HEMOGLOBIN 12.8 g/dL (13.5-17.0); LYMPHOCYTES % (AUTO) 17.7 % (13-45); MEAN CORPUSCULAR HEMOGLOBIN 27.6 pg (27.0-33.4); MEAN CORPUSCULAR HGB CONC 31.4 g/dL (32.0-36.0); MEAN CORPUSCULAR VOLUME 88 fl (80-97); MONOCYTES % (AUTO) 11.4 % (3-13); PLATELET COUNT 209 10^3/uL (150-450); RED BLOOD COUNT 4.64 10^6/uL (4.35-5.55); RED CELL DISTRIBUTION WIDTH 16.1 % (11.5-14.0); SEGMENTED NEUTROPHILS % (AUTO) 69.8 % (42-78); TOTAL CELLS COUNTED % (AUTO) 100 %; WHITE BLOOD COUNT 12.7 10^3/uL (4.0-10.5)
[2018-01-23 07:30] LABS: ALANINE AMINOTRANSFERASE 24 U/L (21-72); ALBUMIN 2.9 g/dL (3.5-5.0); ALKALINE PHOSPHATASE 84 U/L (38-126); ANION GAP 13 (5-19); ASPARTATE AMINO TRANSFERASE 43 U/L (17-59); BILIRUBIN,DIRECT 0.4 mg/dL (0.0-0.4); BILIRUBIN,TOTAL 0.4 mg/dL (0.2-1.3); BLOOD UREA NITROGEN 26 mg/dL (7-20); CALCIUM 8.5 mg/dL (8.4-10.2); CARBON DIOXIDE 25 mmol/L (22-30); CHLORIDE 126 mmol/L (98-107); GLUCOSE 74 mg/dL (75-110); POTASSIUM 3.2 mmol/L (3.6-5.0); SODIUM 164.1 mmol/L (137-145)
[2018-01-23 07:37] LABS: INTERNATIONAL RATION (INR) 1.61; PROTHROMBIN TIME 19.9 SEC (11.4-15.4)
[2018-01-23] MEDS: NORMAL SALINE 1000 ML 1,000 ML IV PRN ×2 (08:42→19:14)
[2018-01-23] MEDS: DOCUSATE SODIUM 100 MG CAPSULE PO SCH ×2 (12:28→17:45)
[2018-01-23] MEDS: THIAMINE HCL 100 MG TABLET NG SCH (12:28)
[2018-01-23] MEDS: FLUTICASONE/SALMETEROL DISKUS 500-50 MCG/DOSE IH SCH ×2 (12:29→21:19)
[2018-01-23] MEDS: APIXABAN 5 MG TABLET NG SCH ×2 (12:29→17:46)
[2018-01-23] MEDS: ASPIRIN 81 MG TABLET, CHEWABLE NG SCH (12:29)
[2018-01-23] MEDS ORDERED: POTASSIUM CHLORIDE 20 MEQ/15 ML UDCUP PO ONE (12:30)
[2018-01-23] MEDS: MEGESTROL ACETATE SUSP 400 MG/10 ML UDCUP NG SCH (12:30)
[2018-01-23] MEDS ORDERED: DILTIAZEM HCL INJ 25 MG/5 ML VIAL IV ONE (12:30)
--- NOTE | 2018-01-23 12:38 | PDOC PROGRESS REPORT ---
Subjective Progress Note for:: 01/23/18 Subjective:: Patient nearly obtunded; gatoring in the bed Reason For Visit: PAROXYSMAL ATRIAL FLUTTER Physical Exam Vital Signs: Temp Pulse Resp BP Pulse Ox 97.7 F 82 18 115/58 L 99 01/23/18 07:32 01/23/18 07:32 01/23/18 07:32 01/23/18 07:32 01/23/18 07:32 Intake & Output 01/22/18 01/23/18 01/24/18 06:59 06:59 06:59 Intake Total 1844 2536 Balance 1844 2536 Weight 63 kg 62 kg General appearance: PRESENT: other - Agitated, laying diagonally in the bed, alternating combativeness with somnolence Results Laboratory Results: 01/23/18 06:33 01/23/18 06:33 01/23/18 01/23/18 06:33 06:33 WBC 12.7 H RBC 4.64 Hgb 12.8 L Hct 40.8 MCV 88 MCH 27.6 MCHC 31.4 L RDW 16.1 H Plt Count 209 Seg Neutrophils % 69.8 Lymphocytes % 17.7 Monocytes % 11.4 Eosinophils % 0.5 Basophils % 0.6 Absolute Neutrophils 8.9 H Absolute Lymphocytes 2.2 Absolute Monocytes 1.5 H Absolute Eosinophils 0.1 Absolute Basophils 0.1 Sodium 164.1 H Potassium 3.2 L Chloride 126 H Carbon Dioxide 25 Anion Gap 13 BUN 26 H Creatinine 1.16 Est GFR ( Amer) > 60 Est GFR (Non-Af Amer) > 60 Glucose 74 L Calcium 8.5 Total Bilirubin 0.4 AST 43 ALT 24 Alkaline Phosphatase 84 Total Protein 6.0 L Albumin 2.9 L Impressions: Chest/Abdomen CTA 01/04/18 17:22 IMPRESSION: 1. There is no evidence of pulmonary emboli. 2. Centrilobular emphysema. Subsegmental atelectasis. Small pleural effusions. Calcified pleural plaques. Head CT 01/08/18 00:00 IMPRESSION: CHRONIC CHANGES OF ATROPHY AND MICROVASCULAR ISCHEMIA. NO CT EVIDENCE OF ACUTE INTRACRANIAL HEMORRHAGE OR LARGE TERRITORY ACUTE ISCHEMIA. EVIDENCE OF ACUTE STROKE: NO. KUB X-Ray 01/22/18 16:35 IMPRESSION: Nasogastric tube in the stomach. Assessment & Plan - Diagnosis (1) Atrial fibrillation/flutter Is this a current diagnosis for this admission?: Yes Plan: Patient back in A. fib with rapid ventricular response. Has electrolyte abnormalities. Recommendations: 1. Correct electrolyte abnormalities 2. Reconsult surgery when patient more stable for feeding tube placement if and when appropriate
[2018-01-23] MEDS: DILTIAZEM HCL 60 MG TABLET NG SCH ×2 (13:23→21:11)
--- NOTE | 2018-01-23 15:54 | PDOC PROGRESS REPORT ---
<BRITNI JIMENEZ Fernandez - Last Filed: 01/23/18 15:44> Subjective Progress Note for:: 01/23/18 Subjective:: 82 y.o. male initially presented with Atrial flutter and started on a Cardizem gtt. He has since been weaned off and has transitioned to PO Cardizem with appropriate rate control. The patient reportedly drinks 4-5 beers per day and while inpatient at [facility] developed alcohol withdrawal/delirium. The patient is now well outside the window for withdrawal symptoms. He is currently waiting for placement at an acute rehab facility. Upon assessment, the patient is resting comfortably in bed on room air. The patient is not answering questions nor is he following commands. Nursing staff reports he will intermittently exhibit this behavior, and other times he will say lewd comments or expletives directed at the staff. The patient's eyes are open and he looks at medical staff when they are talking to him. The patient is continuing to refuse to eat. At the request of the son (medical POA), NG tube placed yesterday, surgery to evaluate today for PEG tube placement. Currently awaiting placement in an acute rehab facility. Reason For Visit: PAROXYSMAL ATRIAL FLUTTER Physical Exam Vital Signs: Temp Pulse Resp BP Pulse Ox 97.7 F 82 18 115/58 L 99 01/23/18 07:32 01/23/18 07:32 01/23/18 07:32 01/23/18 07:32 01/23/18 07:32 Intake & Output 01/22/18 01/23/18 01/24/18 06:59 06:59 06:59 Intake Total 1844 2536 Balance 1844 2536 Weight 63 kg 62 kg General appearance: PRESENT: no acute distress, disheveled Eye exam: PRESENT: conjunctiva pink, PERRLA Mouth exam: PRESENT: dry mucosa Teeth exam: PRESENT: poor dentation Neck exam: PRESENT: full ROM Respiratory exam: PRESENT: clear to auscultation amina, symmetrical, unlabored Cardiovascular exam: PRESENT: irregular rhythm Pulses: PRESENT: normal radial pulses, normal dorsalis pedis pul GI/Abdominal exam: PRESENT: diminished bowel sounds, normal bowel sounds, soft. ABSENT: tenderness Rectal exam: PRESENT: deferred Extremities exam: PRESENT: full ROM Musculoskeletal exam: PRESENT: full ROM. ABSENT: ambulatory Neurological exam: PRESENT: altered. ABSENT: alert, awake, oriented to person, oriented to place, oriented to time, oriented to situation, normal gait Psychiatric exam: PRESENT: unusual affect Skin exam: PRESENT: dry, intact, pallor Results Laboratory Results: 01/23/18 06:33 01/23/18 06:33 18 01/23/18 06:33 06:33 WBC 12.7 H RBC 4.64 Hgb 12.8 L Hct 40.8 MCV 88 MCH 27.6 MCHC 31.4 L RDW 16.1 H Plt Count 209 Seg Neutrophils % 69.8 Lymphocytes % 17.7 Monocytes % 11.4 Eosinophils % 0.5 Basophils % 0.6 Absolute Neutrophils 8.9 H Absolute Lymphocytes 2.2 Absolute Monocytes 1.5 H Absolute Eosinophils 0.1 Absolute Basophils 0.1 Sodium 164.1 H Potassium 3.2 L Chloride 126 H Carbon Dioxide 25 Anion Gap 13 BUN 26 H Creatinine 1.16 Est GFR ( Amer) > 60 Est GFR (Non-Af Amer) > 60 Glucose 74 L Calcium 8.5 Total Bilirubin 0.4 AST 43 ALT 24 Alkaline Phosphatase 84 Total Protein 6.0 L Albumin 2.9 L Impressions: Chest/Abdomen CTA 01/04/18 17:22 IMPRESSION: 1. There is no evidence of pulmonary emboli. 2. Centrilobular emphysema. Subsegmental atelectasis. Small pleural effusions. Calcified pleural plaques. Head CT 01/08/18 00:00 IMPRESSION: CHRONIC CHANGES OF ATROPHY AND MICROVASCULAR ISCHEMIA. NO CT EVIDENCE OF ACUTE INTRACRANIAL HEMORRHAGE OR LARGE TERRITORY ACUTE ISCHEMIA. EVIDENCE OF ACUTE STROKE: NO. KUB X-Ray 01/22/18 16:35 IMPRESSION: Nasogastric tube in the stomach. Status: Imported from PACS Assessment & Plan - Diagnosis (1) Anorexia Is this a current diagnosis for this admission?: Yes Plan: The patient is refusing to eat. Today he will only eat 1 bite of food from his meal tray, then refuse to eat the rest. He only takes a few sips of water/juice at each meal Patient's medical POA, Lisandro Snowden Jr, would like to pursue a feeding tube. NG tube placement yesterday, initiated enteral feeding. Appreciate registered dietitian recommendations for enteral feeding formula. Surgery has been consulted for PEG tube placement. (2) Atrial fibrillation/flutter Is this a current diagnosis for this admission?: Yes Plan: Patient initially presented to the hospital with atrial flutter, HR>140 Rate control was initially achieved with a Cardizem GTT, was successfully transitioned to Cardizem p.o. Patient remains in NSR as long as he takes his medications, without his medications he will transition back into AFIB/AFLUTTER Continue p.o. Cardizem (3) Alcohol withdrawal QualifierTitle: Complication of substance-induced condition: with delirium Qualified Code(s): F10.231 - Alcohol dependence with withdrawal delirium Is this a current diagnosis for this admission?: Yes Plan: Patient has a history of daily EtOH use At this time, the patient is outside of the window for acute withdrawal symptoms The patient is cantankerous and intermittently demented. For the most part cooperative with staff, but will sometimes refuse medications or make lewd comments to staff. Continue p.o. thiamine (4) COPD (chronic obstructive pulmonary disease) QualifierTitle: COPD type: unspecified COPD Qualified Code(s): J44.9 - Chronic obstructive pulmonary disease, unspecified Is this a current diagnosis for this admission?: Yes Plan: Patient endorses a history of COPD however his SPO2>92% on room air Lung sounds clear to auscultation Continue Spiriva and Advair (5) Debility Is this a current diagnosis for this admission?: Yes Plan: Secondary to prolonged hospital stay and lack of daily exercise PT/OT currently working with patient Able to stand at side of bed with 2 person assist, unable to ambulate Patient will require acute rehab post discharge Discharge planning aware, patient awaiting placement in acute rehab (6) Hypertension QualifierTitle: Hypertension type: essential hypertension Qualified Code( s): I10 - Essential (primary) hypertension Is this a current diagnosis for this admission?: Yes Plan: History of hypertension Continue p.o. metoprolol, aspirin and statin therapy - Time Time Spent with patient: 15-24 minutes Medications reviewed and adjusted accordingly: Yes Anticipated discharge: Acute Rehab - Inpatient Certification Based on my medical assessment, after consideration of the patient's comorbidities, presenting symptoms, or acuity I expect that the services needed warrant INPATIENT care.: Yes I certify that my determination is in accordance with my understanding of Medicare's requirements for reasonable and necessary INPATIENT services [42 CFR 412.3e].: Yes Medical Necessity: Risk of Complication if Not Cared For in Hospital - Plan Summary Plan Summary: Following PEG tube placement, and once able to tolerate enteral feeding, patient may be discharged to acute rehab facility. <RAPHAELKAREN - Last Filed: 01/25/18 15:49> Subjective Reason For Visit: PAROXYSMAL ATRIAL FLUTTER Physical Exam Vital Signs: Temp Pulse Resp BP Pulse Ox 98.4 F 60 16 114/61 100 01/25/18 12:00 01/25/18 12:00 01/25/18 12:00 01/25/18 12:00 01/25/18 12:00 Intake & Output 01/24/18 01/25/18 01/26/18 06:59 06:59 06:59 Intake Total 2810 3782 Output Total 570 195 Balance 2810 3212 -195 Weight 66 kg 70.3 kg Results Laboratory Results: 01/25/18 05:04 01/25/18 10:07 01/24/18 01/24/18 01/24/18 16:10 17:27 20:52 WBC RBC Hgb Hct MCV MCH MCHC RDW Plt Count Seg Neutrophils % Lymphocytes % Monocytes % Eosinophils % Basophils % Absolute Neutrophils Absolute Lymphocytes Absolute Monocytes Absolute Eosinophils Absolute Basophils Carbonic Acid 1.21 HCO3/H2CO3 Ratio 17:1 ABG pH 7.35 ABG pCO2 40.3 ABG pO2 199.6 H ABG HCO3 21.6 ABG O2 Saturation 99.3 H ABG Base Excess -3.7 FiO2 60% Sodium 158.7 H 156.5 H Potassium 3.5 L 3.1 L Chloride 125 H 124 H Carbon Dioxide 24 23 Anion Gap 10 10 BUN 20 19 Creatinine 1.38 H 1.31 H Est GFR ( Amer) 59 L > 60 Est GFR (Non-Af Amer) 49 L 52 L Glucose 140 H 137 H Calcium 8.0 L 8.1 L Phosphorus Magnesium Total Bilirubin AST ALT Alkaline Phosphatase Total Protein Albumin 01/24/18 01/25/18 01/25/18 20:52 01:05 05:04 WBC 17.7 H RBC 4.26 L Hgb 11.4 L Hct 36.6 L MCV 86 MCH 26.7 L MCHC 31.1 L RDW 16.3 H Plt Count 169 Seg Neutrophils % 76.6 Lymphocytes % 12.2 L Monocytes % 10.4 Eosinophils % 0.3 Basophils % 0.5 Absolute Neutrophils 13.6 H Absolute Lymphocytes 2.2 Absolute Monocytes 1.8 H Absolute Eosinophils 0.1 Absolute Basophils 0.1 Carbonic Acid HCO3/H2CO3 Ratio ABG pH ABG pCO2 ABG pO2 ABG HCO3 ABG O2 Saturation ABG Base Excess FiO2 Sodium 156.7 H Potassium 3.4 L Chloride 124 H Carbon Dioxide 22 Anion Gap 11 BUN 18 Creatinine 1.17 Est GFR ( Amer) > 60 Est GFR (Non-Af Amer) 59 L Glucose 131 H Calcium 8.0 L Phosphorus Magnesium 1.9 Total Bilirubin AST ALT Alkaline Phosphatase Total Protein Albumin 01/25/18 01/25/18 01/25/18 05:04 06:00 10:07 WBC RBC Hgb Hct MCV MCH MCHC RDW Plt Count Seg Neutrophils % Lymphocytes % Monocytes % Eosinophils % Basophils % Absolute Neutrophils Absolute Lymphocytes Absolute Monocytes Absolute Eosinophils Absolute Basophils Carbonic Acid 0.68 L HCO3/H2CO3 Ratio 28:1 ABG pH 7.55 H ABG pCO2 22.7 L ABG pO2 78.8 L ABG HCO3 19.2 L ABG O2 Saturation 97.1 ABG Base Excess -1.5 FiO2 21% Sodium 153.6 H 151.3 H Potassium 3.4 L 3.2 L Chloride 123 H 121 H Carbon Dioxide 23 24 Anion Gap 8 6 BUN 17 16 Creatinine 1.10 1.01 Est GFR ( Amer) > 60 > 60 Est GFR (Non-Af Amer) > 60 > 60 Glucose 147 H 152 H Calcium 7.9 L 7.7 L Phosphorus 1.6 L Magnesium 2.0 Total Bilirubin 0.3 AST 33 ALT 25 Alkaline Phosphatase 71 Total Protein 5.1 L Albumin 2.3 L 01/25/18 10:08 WBC RBC Hgb Hct MCV MCH MCHC RDW Plt Count Seg Neutrophils % Lymphocytes % Monocytes % Eosinophils % Basophils % Absolute Neutrophils Absolute Lymphocytes Absolute Monocytes Absolute Eosinophils Absolute Basophils Carbonic Acid 0.98 L HCO3/H2CO3 Ratio 22:1 ABG pH 7.44 ABG pCO2 32.7 L ABG pO2 80.2 ABG HCO3 21.8 ABG O2 Saturation 96.3 ABG Base Excess -1.6 FiO2 25% Sodium Potassium Chloride Carbon Dioxide Anion Gap BUN Creatinine Est GFR ( Amer) Est GFR (Non-Af Amer) Glucose Calcium Phosphorus Magnesium Total Bilirubin AST ALT Alkaline Phosphatase Total Protein Albumin 01/24/18 16:10 Tracheal Aspirate Gram Stain - Final 01/24/18 17:30 Throat Throat Culture - Final GREATLY REDUCED NORMAL MERE 01/23/18 01/23/18 01/24/18 18:24 18:24 00:19 Creatine Kinase 232 H 187 H CK-MB (CK-2) 3.80 Troponin I 0.113 NT-Pro-B Natriuret Pep 01/24/18 01/24/18 01/24/18 00:19 06:50 06:50 Creatine Kinase 136 CK-MB (CK-2) 2.43 1.80 Troponin I 0.105 0.100 NT-Pro-B Natriuret Pep 01/25/18 05:04 Creatine Kinase CK-MB (CK-2) Troponin I NT-Pro-B Natriuret Pep 8090 H Impressions: Chest/Abdomen CTA 01/04/18 17:22 IMPRESSION: 1. There is no evidence of pulmonary emboli. 2. Centrilobular emphysema. Subsegmental atelectasis. Small pleural effusions. Calcified pleural plaques. Head CT 01/08/18 00:00 IMPRESSION: CHRONIC CHANGES OF ATROPHY AND MICROVASCULAR ISCHEMIA. NO CT EVIDENCE OF ACUTE INTRACRANIAL HEMORRHAGE OR LARGE TERRITORY ACUTE ISCHEMIA. EVIDENCE OF ACUTE STROKE: NO. KUB X-Ray 01/22/18 16:35 IMPRESSION: Nasogastric tube in the stomach. Pelvis Ultrasound 01/24/18 00:00 IMPRESSION: AGUILAR CATHETER APPEARS TO BE IN PROPER POSITION WITHIN THE URINARY BLADDER. Soft Tissue Neck CT 01/24/18 03:47 IMPRESSION: 1.1 cm and 0.8 cm nodular enlargement of the left parapharyngeal space and left paracentral retropharyngeal space at the level of the hyoid causes mild narrowing at the laryngeal inlet. Differential etiologies include infectious, inflammatory, and neoplastic processes. Renal Ultrasound 01/24/18 17:10 IMPRESSION: There is cortical thinning in the left kidney. The study is otherwise normal. Chest X-Ray 01/25/18 06:00 IMPRESSION: No significant change. Assessment & Plan - Diagnosis (1) Paroxysmal atrial flutter Is this a current diagnosis for this admission?: Yes (2) COPD (chronic obstructive pulmonary disease) Qualifiers: COPD type: unspecified COPD Qualified Code(s): J44.9 - Chronic obstructive pulmonary disease, unspecified Is this a current diagnosis for this admission?: Yes (3) Hyperlipidemia Qualifiers: Hyperlipidemia type: unspecified Qualified Code(s): E78.5 - Hyperlipidemia , unspecified Is this a current diagnosis for this admission?: Yes (4) Hypertension Qualifiers: Hypertension type: essential hypertension Qualified Code(s): I10 - Essential (primary) hypertension Is this a current diagnosis for this admission?: Yes (5) Alcohol withdrawal Qualifiers: Complication of substance-induced condition: with delirium Qualified Code(s ): F10.231 - Alcohol dependence with withdrawal delirium Is this a current diagnosis for this admission?: Yes - Plan Summary Plan Summary: Co signing note for Britni Hinojosa NP
[2018-01-23 19:08] LABS: CREATINE KINASE MB 3.8 ng/mL (<4.55); TROPONIN I 0.113 ng/mL
--- NOTE | 2018-01-23 20:00 | EKG REPORT ---
SEVERITY:- ABNORMAL ECG - ATRIAL FIBRILLATION, V-RATE 81-174 REPOLARIZATION ABNORMALITY, PROB RATE RELATED : Confirmed by: Ellen Whitfield MD 23-Jan-2018 19:59:44
[2018-01-23] MEDS: MEMANTINE HCL 10 MG TABLET NG SCH (21:12)
[2018-01-23] MEDS: ATORVASTATIN CALCIUM 20 MG TABLET NG SCH (21:12)
[2018-01-24] MEDS: VALPROATE SODIUM SYRUP 250 MG/5 ML UDCUP NG SCH ×2 (00:09→06:16)
[2018-01-24 01:09] LABS: CREATINE KINASE MB 2.43 ng/mL (<4.55); TROPONIN I 0.105 ng/mL
[2018-01-24] MEDS ORDERED: VANCOMYCIN HCL 0 MG in DEXTROSE 5%-WATER 250 ML IV NR (04:00)
[2018-01-24] MEDS ORDERED: PIPERACILLIN/TAZOBACTAM 3.375 GM VIAL IV PRN (04:03)
[2018-01-24] MEDS ORDERED: VANCOMYCIN HCL INJ 1000 MG VIAL IV PRN (04:07)
[2018-01-24] MEDS ORDERED: PIPERACILLIN SODIUM/TAZOBACTAM 3.375 GM in NORMAL SALINE 100 ML IV ONE (04:15)
[2018-01-24] MEDS ORDERED: VANCOMYCIN HCL 1,000 MG in DEXTROSE 5%-WATER 250 ML IV ONE (04:30)
--- NOTE | 2018-01-24 04:43 | RADIOLOGY REPORT (SQ) ---
EXAM DESCRIPTION: CT NECK CHEST WITH IV CONTRAST CLINICAL HISTORY: 82 years Male, neck swelling. "LOSING AIRWAY" PER RN. Comparison: None. Technique: IV contrast. Coronal and sagittal reformat. This exam was performed according to our departmental dose-optimization program, which includes automated exposure control, adjustment of the mA and/or kV according to patient size and/or use of iterative reconstruction technique.[facility]: Dose Right [facility]: CareDose [facility]: Dose Right [facility]: Teradose 4D [facility]: [employer] LIMITATIONS: None. Findings: 1.1 cm and 0.8 cm nodular enlargement of the left parapharyngeal space and left paracentral retropharyngeal space at the level of the hyoid causes mild narrowing at the laryngeal inlet. Image 59 and image 54 of series 2. Moderate disc desiccation between the C3 and C7 levels. Partially imaged enteric tube. Atherosclerosis. Prominent main pulmonary outflow tract diameter is 3.8 cm. Mild emphysematous hyperinflation of the lungs. Partially imaged nuchal soft tissues, inferior cranium, and upper thorax appear otherwise grossly intact. IMPRESSION: 1.1 cm and 0.8 cm nodular enlargement of the left parapharyngeal space and left paracentral retropharyngeal space at the level of the hyoid causes mild narrowing at the laryngeal inlet. Differential etiologies include infectious, inflammatory, and neoplastic processes.
[2018-01-24] MEDS ORDERED: VANCOMYCIN HCL INJ 1000 MG VIAL ONE (05:06)
[2018-01-24] MEDS ORDERED: PIPERACILLIN/TAZOBACTAM 3.375 GM VIAL IV ONE (05:07)
[2018-01-24] MEDS: LANSOPRAZOLE 30 MG TAB.RAP.DR NG SCH (06:16)
[2018-01-24] MEDS: METOPROLOL TARTRATE 50 MG TABLET NG SCH ×2 (06:16→17:34)
[2018-01-24] MEDS: DILTIAZEM HCL 60 MG TABLET NG SCH ×2 (06:16→16:28)
--- NOTE | 2018-01-24 06:22 | Progress Note ---
<BRITNI JIMENEZ A - Last Filed: 01/24/18 06:17> Provider Note Provider Note: Nursing staff notified provider that patient's telemetry strips appeared to show ST depression. EKG obtained, ST depression noted in II, ?III?, AVF, and V3- V6. Serial cardiac enzymes ordered currently pending. Patient unable to verbalize chest pain due to his ETOH dementia. Signed out to experimental psychologist to follow up with the pending lab work. At this time, patient remains FULL CODE per family request. <KAREN LIM C - Last Filed: 01/25/18 15:52> Provider Note Provider Note: Co signing note for Britni Hinojosa NP
[2018-01-24 07:15] LABS: ABSOLUTE BASOPHILS # (AUTO) 0.1 10^3/uL (0.0-0.2); ABSOLUTE LYMPHOCYTES (AUTO) 1.7 10^3/uL (0.5-4.7); ABSOLUTE MONOCYTES (AUTO) 2.2 10^3/uL (0.1-1.4); ABSOLUTE NEUT (AUTO) 13.9 10^3/uL (1.7-8.2); BASOPHILS % (AUTO) 0.4 % (0-2); EOSINOPHILS % (AUTO) 0.2 % (0-6); HEMATOCRIT 41.6 % (37.9-51.0); HEMOGLOBIN 13.3 g/dL (13.5-17.0); LYMPHOCYTES % (AUTO) 9.7 % (13-45); MEAN CORPUSCULAR HEMOGLOBIN 27.7 pg (27.0-33.4); MEAN CORPUSCULAR VOLUME 87 fl (80-97); MONOCYTES % (AUTO) 12.1 % (3-13); PLATELET COUNT 181 10^3/uL (150-450); RED CELL DISTRIBUTION WIDTH 16.2 % (11.5-14.0); SEGMENTED NEUTROPHILS % (AUTO) 77.6 % (42-78); TOTAL CELLS COUNTED % (AUTO) 100 %
[2018-01-24 07:28] LABS: ALANINE AMINOTRANSFERASE 21 U/L (21-72); ALBUMIN 2.7 g/dL (3.5-5.0); ALKALINE PHOSPHATASE 75 U/L (38-126); ANION GAP 12 (5-19); ASPARTATE AMINO TRANSFERASE 38 U/L (17-59); BILIRUBIN,DIRECT 0.4 mg/dL (0.0-0.4); BILIRUBIN,TOTAL 0.4 mg/dL (0.2-1.3); BLOOD UREA NITROGEN 21 mg/dL (7-20); CALCIUM 8.4 mg/dL (8.4-10.2); CARBON DIOXIDE 23 mmol/L (22-30); CHLORIDE 130 mmol/L (98-107); CREATINE KINASE 136 U/L (55-170); GLUCOSE 102 mg/dL (75-110); POTASSIUM 3.7 mmol/L (3.6-5.0); TOTAL PROTEIN 5.9 g/dL (6.3-8.2)
[2018-01-24 07:38] LABS: CREATINE KINASE MB 1.8 ng/mL (<4.55); TROPONIN I 0.1 ng/mL
[2018-01-24] MEDS ORDERED: DEXTROSE 5%-WATER 1000 ML 1,000 ML IV PRN (07:53)
--- NOTE | 2018-01-24 11:08 | PDOC PROGRESS REPORT ---
Subjective Progress Note for:: 01/24/18 Subjective:: Reconsult by hospitalist because of EKG being abnormal and also positive troponin I. These are in the indeterminate range. In addition patient is noted to be severely hypernatremic. Patient has reverted back into atrial fibrillation with rapid ventricular response being noted intermittently. Patient is noted to be confused. He is comfortably laying in bed. Patient has been noted to be intermittently agitated. Patient noted to be otherwise comfortable without any respiratory distress or any other distress. Patient today seems to be in sinus rhythm. Reason For Visit: PAROXYSMAL ATRIAL FLUTTER Physical Exam Vital Signs: Temp Pulse Resp BP Pulse Ox 98.1 F 68 22 H 101/56 L 97 01/24/18 07:39 01/24/18 07:39 01/24/18 07:39 01/24/18 07:39 01/24/18 07:39 Intake & Output 01/23/18 01/24/18 01/25/18 06:59 06:59 06:59 Intake Total 2536 2810 Balance 2536 2810 Weight 62 kg 66 kg Exam: GENERAL: well-nourished and in no acute distress. Patient is alert but not oriented to place time or person. HEAD: Atraumatic, normocephalic. EYES: Pupils equal round and reactive to light, extraocular movements intact, sclera anicteric, conjunctiva are normal. ENT: TMs normal, nares patent, oropharynx clear without exudates. Moist mucous membranes. No oral ulcerations or bleeding gums noted NECK: supple without lymphadenopathy or JVD. Trachea is central. No cervical or axillary lymphadenopathy noted. Carotids are 2+ LUNGS: Breath sounds bibasilar fine crackles at bases. No significant dullness noted. CHEST: Palpation of chest wall shows no significant chest wall tenderness. 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 ABDOMEN: Soft, no significant tenderness appreciated, normoactive bowel sounds. No guarding, no rebound. No rigidity noted . No masses appreciated. EXTREMITIES: Pedal pulses are 1-2+, no calf tenderness noted, Trace + pedal edema noted. No clubbing or cyanosis. NEUROLOGICAL: Patient is alert but is not able to participate in neurological exam because of patient's current mental status PSYCH: Patient cannot participate in a neurologic and psych exam because of the patient's current mental status SKIN: No significant ecchymosis, rash, ulcerations or signs of pruritus noted. MUSCULOSKELETAL EXAM: No significant joint swelling noted. Results Laboratory Results: 01/24/18 06:50 01/24/18 06:50 01/24/18 01/24/18 01/24/18 06:50 06:50 06:56 WBC 18.0 H RBC 4.80 Hgb 13.3 L Hct 41.6 MCV 87 MCH 27.7 MCHC 32.0 RDW 16.2 H Plt Count 181 Seg Neutrophils % 77.6 Lymphocytes % 9.7 L Monocytes % 12.1 Eosinophils % 0.2 Basophils % 0.4 Absolute Neutrophils 13.9 H Absolute Lymphocytes 1.7 Absolute Monocytes 2.2 H Absolute Eosinophils 0.0 Absolute Basophils 0.1 Sodium 165.0 H Potassium 3.7 Chloride 130 H Carbon Dioxide 23 Anion Gap 12 BUN 21 H Creatinine 1.13 Est GFR ( Amer) > 60 Est GFR (Non-Af Amer) > 60 Glucose 102 Calcium 8.4 Total Bilirubin 0.4 AST 38 ALT 21 Alkaline Phosphatase 75 Ammonia < 8.7 L Total Protein 5.9 L Albumin 2.7 L 01/23/18 01/23/18 01/24/18 18:24 18:24 00:19 Creatine Kinase 232 H 187 H CK-MB (CK-2) 3.80 Troponin I 0.113 01/24/18 01/24/18 01/24/18 00:19 06:50 06:50 Creatine Kinase 136 CK-MB (CK-2) 2.43 1.80 Troponin I 0.105 0.100 EKG Comments: Telemetry shows atrial fibrillation with rapid ventricular response. Impressions: Chest/Abdomen CTA 01/04/18 17:22 IMPRESSION: 1. There is no evidence of pulmonary emboli. 2. Centrilobular emphysema. Subsegmental atelectasis. Small pleural effusions. Calcified pleural plaques. Head CT 01/08/18 00:00 IMPRESSION: CHRONIC CHANGES OF ATROPHY AND MICROVASCULAR ISCHEMIA. NO CT EVIDENCE OF ACUTE INTRACRANIAL HEMORRHAGE OR LARGE TERRITORY ACUTE ISCHEMIA. EVIDENCE OF ACUTE STROKE: NO. KUB X-Ray 01/22/18 16:35 IMPRESSION: Nasogastric tube in the stomach. Soft Tissue Neck CT 01/24/18 03:47 IMPRESSION: 1.1 cm and 0.8 cm nodular enlargement of the left parapharyngeal space and left paracentral retropharyngeal space at the level of the hyoid causes mild narrowing at the laryngeal inlet. Differential etiologies include infectious, inflammatory, and neoplastic processes. Assessment & Plan - Diagnosis (1) Elevated troponin I level Is this a current diagnosis for this admission?: Yes (2) Abnormal electrocardiogram Is this a current diagnosis for this admission?: Yes (3) Atrial fibrillation/flutter Is this a current diagnosis for this admission?: Yes (4) COPD (chronic obstructive pulmonary disease) Qualifiers: COPD type: unspecified COPD Qualified Code(s): J44.9 - Chronic obstructive pulmonary disease, unspecified Is this a current diagnosis for this admission?: Yes (5) Hyperlipidemia Qualifiers: Hyperlipidemia type: unspecified Qualified Code(s): E78.5 - Hyperlipidemia , unspecified Is this a current diagnosis for this admission?: Yes (6) Hypertension Qualifiers: Hypertension type: essential hypertension Qualified Code(s): I10 - Essential (primary) hypertension Is this a current diagnosis for this admission?: Yes (7) Physical debility Is this a current diagnosis for this admission?: Yes (8) Hypernatremia Is this a current diagnosis for this admission?: Yes - Notes Notes: Elevated troponin I: This is most likely related to supply demand mismatch from atrial fibrillation with rapid ventricular response. Patient however likely to have underlying CAD at his age. At this point recommend better rate control. Have also added multaq at 400 mg p.o. twice daily which will help with rate control. Abnormal electrocardiogram: This is related to increased heart rate and atrial fibrillation. Patient does have underlying CAD. Hyponatremia: Possibly related to free water loss. Recommend introducing free water via NG tube or via IV fluid. Atrial flutter fibrillation: Heart rate noted to be increased. Patient's currently on Eliquis therapy. Heart rate currently is well controlled. Currently on Cardizem metoprolol and digoxin. Patient does have history of prior stroke. Alcohol withdrawal: Observe for possible seizures, other signs of alcohol withdrawal. Hypertension: Currently blood pressure is well controlled. Continue current regimen. COPD: Currently stable continue baseline bronchodilator therapy. Continue oxygen therapy. Hyperlipidemia: Continue with statin therapy. Gastroesophageal reflux: Continue proton pump inhibitor. General debility: Patient may benefit from physical therapy at least bedside physical therapy can be performed.
[2018-01-24] MEDS ORDERED: APIXABAN 5 MG TABLET NG ONE (12:00)
[2018-01-24] MEDS ORDERED: DRONEDARONE HYDROCHLORIDE 400 MG TABLET PO ONE (12:00)
--- NOTE | 2018-01-24 12:34 | RADIOLOGY REPORT (SQ) ---
EXAM DESCRIPTION: CT SOFT TISSUE NECK WITHOUT COMPLETED DATE/TIME: 01/24/2018 12:14 pm REASON FOR STUDY: left neck edema; increased size from last night COMPARISON: 01/24/2018. TECHNIQUE: Noncontrast scanning from skull base through lung apices with review of bone, soft tissue and lung windows. Reconstructed coronal and sagittal MPR images reviewed. All images stored on PAC S. All CT scanners at this facility use dose modulation, iterative reconstruction, and/or weight based d osing when appropriate to reduce radiation dose to as low as reasonably achievable (ALARA). [facility]: Dose Right [facility]: CareDose [facility]: Dose Right [facility]: Teradose 4D [facility]: [employer] RADIATION DOSE: mGy. LIMITATIONS: None. FINDINGS: SKULL BASE: Intact. MAJOR SALIVARY GLANDS: No solid or cystic masses. The submandibular glands are somewhat prominent wi th indistinct margins, particularly on the left, with some stranding in the adjacent fatty tissue. LYMPHADENOPATHY: No adenopathy. MUCOSAL MASSES OR ASYMMETRY: Again seen is soft tissue nodularity along the left side and posterior w all of the airway, located between the epiglottis and the vocal cords. Overall length of involvement in the craniocaudal dimension is 4 cm and transverse measurement approximately 1.8 cm. LARYNX/CORDS: No abnormal findings. LUNG APICES: Clear. Emphysematous changes. BONES: Intact. THYROID: Normal size. No masses. PARANASAL SINUSES: Clear. SOFT TISSUES: General inflammation/edema with stranding in the subcutaneous soft tissues on the left side of the neck extending from the level of the angle of the mandible inferiorly to the level of th e clavicle. No focal fluid collection. OTHER: Nasogastric tube is present. IMPRESSION: 1. INFLAMMATION/EDEMA IN THE SUBCUTANEOUS FATTY TISSUES ON THE LEFT SIDE OF THE NECK. THIS MAY BE DU E TO INFECTION OR OTHER INFLAMMATORY PROCESS. NO FOCAL FLUID COLLECTION OR ABSCESS IDENTIFIED. 2. SOMEWHAT INDISTINCT APPEARANCE OF THE SUBMANDIBULAR GLANDS, PARTICULARLY ON THE LEFT, WITH INDISTI NCT STRANDING IN THE ADJACENT FATTY TISSUE. CONSIDER POSSIBILITY OF SIALOADENITIS. 3. ASYMMETRIC SOFT TISSUE NODULARITY ON THE LEFT SIDE AND POSTERIOR WALL OF THE AIRWAY DESCRIBED. THIS IS SOMEWHAT CONCERNING FOR POSSIBLE MALIGNANT PROCESS. RECOMMEND FURTHER EVALUATION WITH [facility] T VISUALIZATION. TECHNICAL DOCUMENTATION: JOB ID: [id number] Quality ID # [id number]: Final reports with documentation of one or more dose reduction techniques (e.g., Au tomated exposure control, adjustment of the mA and/or kV according to patient size, use of iterative reconstruction technique) 2010 [employer]- All Rights Reserved Reading location - IP/workstation name: [email or web address]
[2018-01-24 14:12] LABS: ANION GAP 9 (5-19); BLOOD UREA NITROGEN 21 mg/dL (7-20); CALCIUM 8.4 mg/dL (8.4-10.2); CARBON DIOXIDE 25 mmol/L (22-30); CHLORIDE 127 mmol/L (98-107); GLUCOSE 99 mg/dL (75-110); POTASSIUM 3.7 mmol/L (3.6-5.0); SODIUM 161.4 mmol/L (137-145)
[2018-01-24] MEDS ORDERED: PROPOFOL 1,000 MG/100 ML INFUS..BTL IV ONE (14:25)
[2018-01-24] MEDS ORDERED: PHENYLEPHRINE HCL INJ/PF 10 MG/1 ML SDV ONE (14:39)
[2018-01-24] MEDS ORDERED: PROPOFOL INJ 200 MG/20 ML VIAL IV ONE (14:44)
[2018-01-24] MEDS ORDERED: DEXTROSE 5%-1/2 NORMAL SALINE 1,000 ML IV PRN (14:58)
[2018-01-24] MEDS ORDERED: VANCOMYCIN HCL 1,500 MG in DEXTROSE 5%-WATER 250 ML IV SCH (15:00)
[2018-01-24] MEDS ORDERED: MIDAZOLAM HCL 0 MG/0 ML RTUINJ ONE (15:00)
[2018-01-24] MEDS ORDERED: MIDAZOLAM HCL 50 MG/100 ML RTUINJ ONE (15:12)
[2018-01-24] MEDS ORDERED: PROPOFOL 1,000 MG/100 ML INFUS..BTL IV PRN (15:39)
--- NOTE | 2018-01-24 15:40 | RADIOLOGY REPORT (SQ) ---
EXAM DESCRIPTION: U/S NON-OB PELVIS LTD W/O DOP COMPLETED DATE/TIME: 01/24/2018 3:25 pm REASON FOR STUDY: ?cedeno placement; trauma r/t cedeno COMPARISON: None. TECHNIQUE: Dynamic and static grayscale images acquired of the pelvis via transabdominal approach an d recorded on PACS. LIMITATIONS: None. FINDINGS: BLADDER: Nondistended. Tip of the Cedeno catheter and balloon present within the lumen of the bladder. OTHER: No other significant finding. IMPRESSION: CEDENO CATHETER APPEARS TO BE IN PROPER POSITION WITHIN THE URINARY BLADDER. TECHNICAL DOCUMENTATION: JOB ID: [id number] [employer]- All Rights Reserved Rev-01/06 Reading location - IP/workstation name: [email or web address]
[2018-01-24 16:21] LABS: ARTERIAL BLOOD BASE EXCESS -3.7 mmol/L; ARTERIAL BLOOD FIO2 60%; ARTERIAL BLOOD H2CO3 1.21 mmol/L (1.05-1.35); ARTERIAL BLOOD HCO3 21.6 mmol/L (20-26); ARTERIAL BLOOD O2 SATURATION 99.3 % (94-98); ARTERIAL BLOOD PCO2 40.3 mmHg (35-45); ARTERIAL BLOOD PH 7.35 (7.35-7.45); ARTERIAL BLOOD PO2 199.6 mmHg (80-100); ARTERIAL BLOOD TOTAL CO2 22.9 mmol/L (23-27)
[2018-01-24] MEDS: DEXTROSE 5%-WATER 250 ML with PHENYLEPHRINE HCL 40 MG IV PRN ×4 (16:21→19:40)
[2018-01-24] MEDS: DILTIAZEM HCL/D5W 125 MG/125 ML RTUINJ IV PRN ×2 (16:23→22:09)
[2018-01-24] MEDS: PROPOFOL 1,000 MG/100 ML INFUS..BTL IV PRN ×2 (16:24→22:28)
[2018-01-24] MEDS: FLUTICASONE/SALMETEROL DISKUS 500-50 MCG/DOSE IH SCH (16:28)
[2018-01-24] MEDS: MEGESTROL ACETATE SUSP 400 MG/10 ML UDCUP NG SCH (16:28)
[2018-01-24] MEDS: APIXABAN 5 MG TABLET NG SCH (16:28)
[2018-01-24] MEDS: ASPIRIN 81 MG TABLET, CHEWABLE NG SCH (16:28)
[2018-01-24] MEDS: THIAMINE HCL 100 MG TABLET NG SCH (16:28)
[2018-01-24] MEDS: PIPERACILLIN SODIUM/TAZOBACTAM 3.375 GM in NORMAL SALINE 100 ML IV SCH ×2 (16:29→17:27)
[2018-01-24] MEDS: MIDAZOLAM HCL 50 MG/100 ML RTUINJ IV-INFUSE PRN (17:26)
[2018-01-24 17:56] LABS: ANION GAP 10 (5-19); BLOOD UREA NITROGEN 20 mg/dL (7-20); CARBON DIOXIDE 24 mmol/L (22-30); CHLORIDE 125 mmol/L (98-107); GLUCOSE 140 mg/dL (75-110); POTASSIUM 3.5 mmol/L (3.6-5.0); SODIUM 158.7 mmol/L (137-145)
--- NOTE | 2018-01-24 17:56 | RADIOLOGY REPORT (SQ) ---
EXAM DESCRIPTION: CHEST SINGLE VIEW COMPLETED DATE/TIME: 01/24/2018 5:49 pm REASON FOR STUDY: ETT placement COMPARISON: CT FROM 01/04/2018 EXAM PARAMETERS: NUMBER OF VIEWS: One view. TECHNIQUE: Single frontal radiographic view of the chest acquired. RADIATION DOSE: NA LIMITATIONS: None. FINDINGS: LUNGS AND PLEURA: Stable subsegmental atelectasis/ scarring left lung base. No new opacit ies, masses or pneumothorax. No significant pleural effusion. MEDIASTINUM AND HILAR STRUCTURES: No masses. Contour normal. HEART AND VASCULAR STRUCTURES: Heart stable in size. Normal vasculature. BONES: No acute findings. HARDWARE: Endotracheal tube 5.7 cm above the ramila. Nasogastric tube within the stomach. OTHER: No other significant finding. IMPRESSION: SATISFACTORY POSITION OF ENDOTRACHEAL TUBE AND NASOGASTRIC TUBE. OTHERWISE GROSSLY STAB LE APPEARANCE OF THE CHEST WHEN COMPARED TO PRIOR CT. TECHNICAL DOCUMENTATION: JOB ID: [id number] [employer]- All Rights Reserved Reading location - IP/workstation name: [email or web address]
[2018-01-24 17:58] LABS: INTERNATIONAL RATION (INR) 1.59; PROTHROMBIN TIME 19.7 SEC (11.4-15.4)
[2018-01-24 17:59] LABS: PARTIAL THROMBOPLASTIN TIME 46.7 SEC (23.5-35.8)
--- NOTE | 2018-01-24 18:16 | RADIOLOGY REPORT (SQ) ---
EXAM DESCRIPTION: U/S RETROPERITON LTD COMPLETED DATE/TIME: 01/24/2018 6:06 pm REASON FOR STUDY: oliguria COMPARISON: None. TECHNIQUE: Dynamic and static grayscale images acquired of the kidneys and bladder and recorded on P ACS. Additional selected color Doppler and spectral images recorded. LIMITATIONS: None. FINDINGS: RIGHT KIDNEY: Normal size, 9.8 cm. Normal echogenicity. No solid or suspicious masses . No hydronephrosis. No calcifications. LEFT KIDNEY: Normal size, 8.9 cm. There is some degree of cortical thinning. Normal echogenicity. No solid or suspicious masses. No hydronephrosis. No calcifications. BLADDER: Not evaluated. OTHER FINDINGS: No other significant finding. IMPRESSION: There is cortical thinning in the left kidney. The study is otherwise normal. TECHNICAL DOCUMENTATION: JOB ID: [id number] [employer]- All Rights Reserved Reading location - IP/workstation name: [email or web address]
--- NOTE | 2018-01-24 18:24 | PDOC PROGRESS REPORT ---
<ANITHA ARECHIGA - Last Filed: 01/24/18 17:28> Subjective Progress Note for:: 01/24/18 Subjective:: The patient is an 82-year-old gentleman who has a previous medical history of GERD, hypertension, hyperlipidemia, COPD, EtOH dependence who was initially admitted on 01/04/18 for atrial fibrillation with RVR. The patient subsequently developed alcohol withdrawal requiring scheduled and as needed benzodiazepines with soft limb restraints due to confusion and multiple attempts to remove IV. His acute withdrawal resolved, although the patient remained agitated and inappropriate with staff, and he was successfully transitioned to long-acting p.o. diltiazem for rate control. He remained disoriented and refused all p.o. intake (food, water, and medications) for approximately 5 days. The patient's POA was contacted who requested evaluation for Peg tube placement. Surgery evaluated him on 01/23/18 and determined that the patient was not a candidate until his electrolyte abnormalities were corrected and the patient became more oriented. The patient was seen on morning rounds. He was found in bed on supplemental oxygen at 4 L/min. Head of bed is elevated to 45, gurgling/wet respirations are apparent from the bedside. The patient is minimally responsive to pain at this time. Further imagining and consultation with Surgery, ENT, and Radiology was obtained; see sue. The patient was subsequently transferred to the ICU and intubated by the anesthesia team. The patient's son, Iftikhar Snowden, was contacted. I discussed the overnight development of parapharyngeal nodule and leukocytosis suggestive of abscess formation and risk for airway compromise. He confirmed that he would like his father to be a DNR for code situations only and to otherwise be aggressively managed; including intubation and surgical intervention. Reason For Visit: PAROXYSMAL ATRIAL FLUTTER Physical Exam Vital Signs: Temp Pulse Resp BP Pulse Ox 98.1 F 68 0 L 136/67 H 100 01/24/18 07:39 01/24/18 07:39 01/24/18 15:27 01/24/18 17:06 01/24/18 17:06 Intake & Output 01/23/18 01/24/18 01/25/18 06:59 06:59 06:59 Intake Total 2536 2810 0 Balance 2536 2810 0 Weight 62 kg 66 kg General appearance: PRESENT: mild distress, well-developed, well-nourished Eye exam: ABSENT: scleral icterus Mouth exam: PRESENT: dry mucosa. ABSENT: neck supple - tender to touch; gaurding to left side, ? trachea deviation Teeth exam: PRESENT: poor dentation Neck exam: PRESENT: tracheal deviation. ABSENT: carotid bruit, JVD, lymphadenopathy, thyromegaly Respiratory exam: PRESENT: rhonchi, other - Wet breath sounds secondary to copious oral secretions. No stridor or apnea present during my exam.. ABSENT: rales, wheezes Cardiovascular exam: PRESENT: irregular rhythm, tachycardia - A. fib with RVR. ABSENT: diastolic murmur, rubs, systolic murmur Pulses: PRESENT: normal dorsalis pedis pul Vascular exam: PRESENT: pallor GI/Abdominal exam: PRESENT: diminished bowel sounds, soft. ABSENT: distended, guarding, mass, organolmegaly, rebound, tenderness Rectal exam: PRESENT: deferred Extremities exam: ABSENT: calf tenderness, clubbing, pedal edema Neurological exam: PRESENT: other - Obtunded; withdraws to pain. ABSENT: motor sensory deficit Psychiatric exam: ABSENT: homicidal ideation, suicidal ideation Skin exam: PRESENT: dry, intact, pallor. ABSENT: cyanosis, rash Results Laboratory Results: 01/24/18 06:50 01/24/18 13:45 01/24/18 01/24/18 01/24/18 06:50 06:50 06:56 WBC 18.0 H RBC 4.80 Hgb 13.3 L Hct 41.6 MCV 87 MCH 27.7 MCHC 32.0 RDW 16.2 H Plt Count 181 Seg Neutrophils % 77.6 Lymphocytes % 9.7 L Monocytes % 12.1 Eosinophils % 0.2 Basophils % 0.4 Absolute Neutrophils 13.9 H Absolute Lymphocytes 1.7 Absolute Monocytes 2.2 H Absolute Eosinophils 0.0 Absolute Basophils 0.1 Carbonic Acid HCO3/H2CO3 Ratio ABG pH ABG pCO2 ABG pO2 ABG HCO3 ABG O2 Saturation ABG Base Excess FiO2 Sodium 165.0 H Potassium 3.7 Chloride 130 H Carbon Dioxide 23 Anion Gap 12 BUN 21 H Creatinine 1.13 Est GFR ( Amer) > 60 Est GFR (Non-Af Amer) > 60 Glucose 102 Calcium 8.4 Total Bilirubin 0.4 AST 38 ALT 21 Alkaline Phosphatase 75 Ammonia < 8.7 L Total Protein 5.9 L Albumin 2.7 L 01/24/18 01/24/18 13:45 16:10 WBC RBC Hgb Hct MCV MCH MCHC RDW Plt Count Seg Neutrophils % Lymphocytes % Monocytes % Eosinophils % Basophils % Absolute Neutrophils Absolute Lymphocytes Absolute Monocytes Absolute Eosinophils Absolute Basophils Carbonic Acid 1.21 HCO3/H2CO3 Ratio 17:1 ABG pH 7.35 ABG pCO2 40.3 ABG pO2 199.6 H ABG HCO3 21.6 ABG O2 Saturation 99.3 H ABG Base Excess -3.7 FiO2 60% Sodium 161.4 H Potassium 3.7 Chloride 127 H Carbon Dioxide 25 Anion Gap 9 BUN 21 H Creatinine 1.31 H Est GFR ( Amer) > 60 Est GFR (Non-Af Amer) 52 L Glucose 99 Calcium 8.4 Total Bilirubin AST ALT Alkaline Phosphatase Ammonia Total Protein Albumin 01/23/18 01/23/18 01/24/18 18:24 18:24 00:19 Creatine Kinase 232 H 187 H CK-MB (CK-2) 3.80 Troponin I 0.113 01/24/18 01/24/18 01/24/18 00:19 06:50 06:50 Creatine Kinase 136 CK-MB (CK-2) 2.43 1.80 Troponin I 0.105 0.100 Impressions: Chest/Abdomen CTA 01/04/18 17:22 IMPRESSION: 1. There is no evidence of pulmonary emboli. 2. Centrilobular emphysema. Subsegmental atelectasis. Small pleural effusions. Calcified pleural plaques. Head CT 01/08/18 00:00 IMPRESSION: CHRONIC CHANGES OF ATROPHY AND MICROVASCULAR ISCHEMIA. NO CT EVIDENCE OF ACUTE INTRACRANIAL HEMORRHAGE OR LARGE TERRITORY ACUTE ISCHEMIA. EVIDENCE OF ACUTE STROKE: NO. KUB X-Ray 01/22/18 16:35 IMPRESSION: Nasogastric tube in the stomach. Pelvis Ultrasound 01/24/18 00:00 IMPRESSION: AGUILAR CATHETER APPEARS TO BE IN PROPER POSITION WITHIN THE URINARY BLADDER. Soft Tissue Neck CT 01/24/18 03:47 IMPRESSION: 1.1 cm and 0.8 cm nodular enlargement of the left parapharyngeal space and left paracentral retropharyngeal space at the level of the hyoid causes mild narrowing at the laryngeal inlet. Differential etiologies include infectious, inflammatory, and neoplastic processes. Assessment & Plan - Diagnosis (1) Atrial fibrillation with RVR Is this a current diagnosis for this admission?: Yes Plan: The patient initially presented with a complaint of rapid heart rate from a primary care office; was found to be in atrial flutter with a heart rate greater than 140. TSH was noted to be elevated at 5.89, however, free T4 and T3 are normal. Rate control was initially achieved with Cardizem drip and he was successfully transitioned to p.o. Cardizem. While on medication he does maintain a normal sinus rhythm. However, the patient began refusing all p.o. intake (water, food , and medications). An NG tube was placed so that medications can be continued. Unfortunately, the patient was noted to be back in atrial fibrillation with a heart rate of 120-170 this a.m. This may be due to a combination of poor medication compliance, dehydration, and infection. The patient was placed back on a diltiazem drip today. Cardiology has been consulted. Appreciate their evaluation recommendations. Holding Eliquis secondary to potential surgical intervention for retropharyngeal abscess. (3) Hypernatremia Is this a current diagnosis for this admission?: Yes Plan: Secondary to poor p.o. intake. Trending down; 165.0 --> 161.4 --> 158.7 today. Will change to D5 1/2 NS to prevent rapid decline and reduce risk of central pontine myelinolysis We will monitor closely with BMP every 6 hours. Anticipate that we will resume tube feeds and free water flushes tomorrow (once cleared by surgery/ENT to continue NG tube feeds). (4) Alcohol dependence Is this a current diagnosis for this admission?: Yes Plan: Patient has a history of daily EtOH use. At this time he is through the window for acute withdrawal symptoms. The patient has remained contiguous with intermittent disorientation; became obtunded overnight. Continue folic acid and thiamine supplementation through NG tube once approved for use. (5) Acute encephalopathy Is this a current diagnosis for this admission?: Yes Plan: Most likely related to hypernatremia complicated by infectious process, dementia , alcohol dependence. Supportive care as outlined elsewhere. Fall, seizure, aspiration precautions. (6) Anorexia Is this a current diagnosis for this admission?: Yes Plan: The patient refused to eat for the previous 5 days. He has only been taking small sips of water or juice at each meal and his intermittently refused all medications. The previous provider contacted the patient's son, Lisandro Snowden Jr (POFernandez), who desired tube feedings. NG tube was placed on and tube feedings were initiated. Surgery was consulted for PEG tube placement; have deferred until electrolyte abnormalities have been corrected. Holding tube feeds currently due to emergent requirement for intubation. To be evaluated by ENT tonight; anticipate resuming tube feeds tomorrow unless otherwise directed by ENT for possible surgical procedure. (7) COPD (chronic obstructive pulmonary disease) QualifierTitle: COPD type: unspecified COPD Qualified Code(s): J44.9 - Chronic obstructive pulmonary disease, unspecified Is this a current diagnosis for this admission?: Yes Plan: Without exacerbation. Unable to participate with Spiriva and Advair therapy at this time due to intubation and mechanical ventilation. Dr. Romo has been consulted for vent management. As needed nebulizer treatments are available. (8) Hypertension QualifierTitle: Hypertension type: essential hypertension Qualified Code( s): I10 - Essential (primary) hypertension Is this a current diagnosis for this admission?: Yes Plan: History of hypertension. Now with HYPOtension secondary to infectious process, atrial fibrillation with RVR resulting in poor cardiac output, and multiple medications. Continue diltiazem drip for A. fib with RVR. Continue metoprolol, aspirin, statin therapy per NG tube. Currently receiving Karlos-Synephrine for blood pressure support. (9) Leukocytosis Is this a current diagnosis for this admission?: Yes Plan: Secondary to infectious/inflammatory process of the retropharyngeal/ parapharyngeal space. Blood, throat, sputum cultures pending. He is empirically placed on IV vancomycin and Zosyn. We will continue to monitor. (10) Debility Is this a current diagnosis for this admission?: Yes Plan: Secondary to prolonged hospital stay. As of yesterday, the patient was able to stand at the side of the bed with 2 person assist but was unable to ambulate. Now acutely decompensated. Patient will require acute rehabilitation at SNF post discharge. Discharge planning has been consulted. (11) Retropharyngeal and parapharyngeal abscess Is this a current diagnosis for this admission?: Yes Plan: Abscess vs cellulitis vs malignancy with inflammatory process of the retropharyngeal and parapharyngeal space. Overnight, Nursing noted increased audible breath sounds, including pharyngeal sounds related to oral secretions. Secretions were not cleared through entire suctioning. During their assessment, they noted that the patient had left lateral neck swelling. Contrasted CT was obtained demonstrating a 1.1 x 0.8 cm nodular enlargement of the parapharyngeal space with mild narrowing of the laryngeal inlet. The patient's neck edema seems to be rapidly increasing throughout the day so a second noncontrasted CT was obtained after consultation with radiologist. Repeat exam demonstrated the soft tissue nodularity had increased to 4 cm x 1.8 cm and was associated with possible sialoadentitis of the sub-mandibular glands. Additionally, the patient has a mildly elevated temperature (99.3 axillary) and leukocytosis (WBCs 18) raising suspicion for cellulitis versus developing abscess. Blood, throat, and sputum cultures are pending. The patient was empirically placed on IV vancomycin and Zosyn. As he is obtunded and at risk for airway compromise, he was transferred to the ICU and subsequently intubated. Dr. Romo is consulted for ventilator management. ENT, Dr. Carlson, is consulted for evaluation of retro/parapharyngeal nodule with inflammation; appreciate his evaluation recommendations. Surgery was consulted; appreciate Dr. Ball's assistance. Holding Eliquis 2/2 potential surgical interventions. I did speak with the patient's son, Iftikhar, this morning. He did state that he would like for his father to be intubated and to have surgical intervention if necessary for medical management of airway compromise. He did confirm that his father would be a DNR in "code situations" but desires aggressive medical interventions up to that point. I attempted to call him again following intubation but was directed to voice mail. - Time Time Spent with patient: 35 or more minutes Medications reviewed and adjusted accordingly: Yes <RAPHAELDECEMBER C - Last Filed: 01/25/18 15:55> Subjective Reason For Visit: PAROXYSMAL ATRIAL FLUTTER Physical Exam Vital Signs: Temp Pulse Resp BP Pulse Ox 98.4 F 60 16 114/61 100 01/25/18 12:00 01/25/18 12:00 01/25/18 12:00 01/25/18 12:00 01/25/18 12:00 Intake & Output 01/24/18 01/25/18 01/26/18 06:59 06:59 06:59 Intake Total 2810 3782 Output Total 570 195 Balance 2810 3212 -195 Weight 66 kg 70.3 kg Results Laboratory Results: 01/25/18 05:04 01/25/18 10:07 01/24/18 01/24/18 01/24/18 16:10 17:27 20:52 WBC RBC Hgb Hct MCV MCH MCHC RDW Plt Count Seg Neutrophils % Lymphocytes % Monocytes % Eosinophils % Basophils % Absolute Neutrophils Absolute Lymphocytes Absolute Monocytes Absolute Eosinophils Absolute Basophils Carbonic Acid 1.21 HCO3/H2CO3 Ratio 17:1 ABG pH 7.35 ABG pCO2 40.3 ABG pO2 199.6 H ABG HCO3 21.6 ABG O2 Saturation 99.3 H ABG Base Excess -3.7 FiO2 60% Sodium 158.7 H 156.5 H Potassium 3.5 L 3.1 L Chloride 125 H 124 H Carbon Dioxide 24 23 Anion Gap 10 10 BUN 20 19 Creatinine 1.38 H 1.31 H Est GFR ( Amer) 59 L > 60 Est GFR (Non-Af Amer) 49 L 52 L Glucose 140 H 137 H Calcium 8.0 L 8.1 L Phosphorus Magnesium Total Bilirubin AST ALT Alkaline Phosphatase Total Protein Albumin 01/24/18 01/25/18 01/25/18 20:52 01:05 05:04 WBC 17.7 H RBC 4.26 L Hgb 11.4 L Hct 36.6 L MCV 86 MCH 26.7 L MCHC 31.1 L RDW 16.3 H Plt Count 169 Seg Neutrophils % 76.6 Lymphocytes % 12.2 L Monocytes % 10.4 Eosinophils % 0.3 Basophils % 0.5 Absolute Neutrophils 13.6 H Absolute Lymphocytes 2.2 Absolute Monocytes 1.8 H Absolute Eosinophils 0.1 Absolute Basophils 0.1 Carbonic Acid HCO3/H2CO3 Ratio ABG pH ABG pCO2 ABG pO2 ABG HCO3 ABG O2 Saturation ABG Base Excess FiO2 Sodium 156.7 H Potassium 3.4 L Chloride 124 H Carbon Dioxide 22 Anion Gap 11 BUN 18 Creatinine 1.17 Est GFR ( Amer) > 60 Est GFR (Non-Af Amer) 59 L Glucose 131 H Calcium 8.0 L Phosphorus Magnesium 1.9 Total Bilirubin AST ALT Alkaline Phosphatase Total Protein Albumin 01/25/18 01/25/18 01/25/18 05:04 06:00 10:07 WBC RBC Hgb Hct MCV MCH MCHC RDW Plt Count Seg Neutrophils % Lymphocytes % Monocytes % Eosinophils % Basophils % Absolute Neutrophils Absolute Lymphocytes Absolute Monocytes Absolute Eosinophils Absolute Basophils Carbonic Acid 0.68 L HCO3/H2CO3 Ratio 28:1 ABG pH 7.55 H ABG pCO2 22.7 L ABG pO2 78.8 L ABG HCO3 19.2 L ABG O2 Saturation 97.1 ABG Base Excess -1.5 FiO2 21% Sodium 153.6 H 151.3 H Potassium 3.4 L 3.2 L Chloride 123 H 121 H Carbon Dioxide 23 24 Anion Gap 8 6 BUN 17 16 Creatinine 1.10 1.01 Est GFR ( Amer) > 60 > 60 Est GFR (Non-Af Amer) > 60 > 60 Glucose 147 H 152 H Calcium 7.9 L 7.7 L Phosphorus 1.6 L Magnesium 2.0 Total Bilirubin 0.3 AST 33 ALT 25 Alkaline Phosphatase 71 Total Protein 5.1 L Albumin 2.3 L 01/25/18 10:08 WBC RBC Hgb Hct MCV MCH MCHC RDW Plt Count Seg Neutrophils % Lymphocytes % Monocytes % Eosinophils % Basophils % Absolute Neutrophils Absolute Lymphocytes Absolute Monocytes Absolute Eosinophils Absolute Basophils Carbonic Acid 0.98 L HCO3/H2CO3 Ratio 22:1 ABG pH 7.44 ABG pCO2 32.7 L ABG pO2 80.2 ABG HCO3 21.8 ABG O2 Saturation 96.3 ABG Base Excess -1.6 FiO2 25% Sodium Potassium Chloride Carbon Dioxide Anion Gap BUN Creatinine Est GFR ( Amer) Est GFR (Non-Af Amer) Glucose Calcium Phosphorus Magnesium Total Bilirubin AST ALT Alkaline Phosphatase Total Protein Albumin 01/24/18 16:10 Tracheal Aspirate Gram Stain - Final 01/24/18 17:30 Throat Throat Culture - Final GREATLY REDUCED NORMAL MERE 01/23/18 01/23/18 01/24/18 18:24 18:24 00:19 Creatine Kinase 232 H 187 H CK-MB (CK-2) 3.80 Troponin I 0.113 NT-Pro-B Natriuret Pep 01/24/18 01/24/18 01/24/18 00:19 06:50 06:50 Creatine Kinase 136 CK-MB (CK-2) 2.43 1.80 Troponin I 0.105 0.100 NT-Pro-B Natriuret Pep 01/25/18 05:04 Creatine Kinase CK-MB (CK-2) Troponin I NT-Pro-B Natriuret Pep 8090 H Impressions: Chest/Abdomen CTA 01/04/18 17:22 IMPRESSION: 1. There is no evidence of pulmonary emboli. 2. Centrilobular emphysema. Subsegmental atelectasis. Small pleural effusions. Calcified pleural plaques. Head CT 01/08/18 00:00 IMPRESSION: CHRONIC CHANGES OF ATROPHY AND MICROVASCULAR ISCHEMIA. NO CT EVIDENCE OF ACUTE INTRACRANIAL HEMORRHAGE OR LARGE TERRITORY ACUTE ISCHEMIA. EVIDENCE OF ACUTE STROKE: NO. KUB X-Ray 01/22/18 16:35 IMPRESSION: Nasogastric tube in the stomach. Pelvis Ultrasound 01/24/18 00:00 IMPRESSION: AGUILAR CATHETER APPEARS TO BE IN PROPER POSITION WITHIN THE URINARY BLADDER. Soft Tissue Neck CT 01/24/18 03:47 IMPRESSION: 1.1 cm and 0.8 cm nodular enlargement of the left parapharyngeal space and left paracentral retropharyngeal space at the level of the hyoid causes mild narrowing at the laryngeal inlet. Differential etiologies include infectious, inflammatory, and neoplastic processes. Renal Ultrasound 01/24/18 17:10 IMPRESSION: There is cortical thinning in the left kidney. The study is otherwise normal. Chest X-Ray 01/25/18 06:00 IMPRESSION: No significant change. Assessment & Plan - Diagnosis (1) Paroxysmal atrial flutter Is this a current diagnosis for this admission?: Yes (2) COPD (chronic obstructive pulmonary disease) Qualifiers: COPD type: unspecified COPD Qualified Code(s): J44.9 - Chronic obstructive pulmonary disease, unspecified Is this a current diagnosis for this admission?: Yes (3) Hyperlipidemia Qualifiers: Hyperlipidemia type: unspecified Qualified Code(s): E78.5 - Hyperlipidemia , unspecified Is this a current diagnosis for this admission?: Yes (4) Hypertension Qualifiers: Hypertension type: essential hypertension Qualified Code(s): I10 - Essential (primary) hypertension Is this a current diagnosis for this admission?: Yes - Plan Summary Plan Summary: Co signing note for Anitha Arechiga NP
--- NOTE | 2018-01-24 20:25 | PDOC CONSULTATION ---
Consultation Consult Date: 01/24/18 Attending physician:: NOEMI ARECHIGA Consult reason:: resp failure History of Present Illness Admission Date/PCP: 01/05/18 11:16 DEBORAH ARTEAGA MD History of Present Illness: JUANITA ROACH is a 82 year old male has had progressive sweling soft tissue neck mass with increasing somulence he is now intubated and sedated strong hx of tobacco use and etoh use Past Medical History Cardiac Medical History: Reports: Hyperlipidema Pulmonary Medical History: Reports: Chronic Obstructive Pulmonary Disease (COPD) , Pneumonia GI Medical History: Reports: Gastroesophageal Reflux Disease Musculoskeltal Medical History: Reports: Arthritis Hematology: Denies: Sickle Cell Disease Infectious Medical History: Denies: Clostridium Difficile, HIV Social History Information Source: [facility] Records Smoking Status: Former Smoker Frequency of Alcohol Use: None Drugs: None - Advance Directive Resuscitation Status: Do Not Resuscitate Family History Family History: Hypertension Parental Family History Reviewed: No Children Family History Reviewed: No Sibling(s) Family History Reviewed.: No Medication/Allergy Home Medications: Aspirin [Ecotrin 81 mg EC Tablet] 81 mg PO DAILY 12/06/11 Ibuprofen [Motrin 800 Mg Tablet] 400 mg PO DAILY 12/06/11 Lisinopril [Prinivil] 20 mg PO DAILY 12/06/11 Albuterol Sulfate [Proair Hfa Inhalation Aerosol 8.5 gm Mdi] 2 puff IH Q4HP PRN 01/05/18 Atorvastatin Calcium [Lipitor 20 mg Tablet] 20 mg PO QHS 01/05/18 Fluticasone/Salmeterol [Advair 500-50 Diskus 28 Dose] 1 inh IH Q12H 01/05/18 Pantoprazole Sodium [Protonix] 40 mg PO DAILY 01/05/18 Tiotropium [place] [Spiriva Respimat] 2 puff PO DAILY 01/05/18 Allergies/Adverse Reactions: No Known Allergies Allergy (Verified 12/06/11 11:52) Review of Systems ROS unobtainable: Due to endotracheal tube Physical Exam Vital Signs: Temp Pulse Resp BP Pulse Ox 98.1 F 68 22 H 101/56 L 97 01/24/18 07:39 01/24/18 07:39 01/24/18 07:39 01/24/18 07:39 01/24/18 07:39 Intake & Output 06/12/0701/24/18 01/25/18 06:59 06:59 06:59 Intake Total 2536 2810 0 Balance 2536 2810 0 Weight 62 kg 66 kg General appearance: PRESENT: no acute distress, disheveled, well-developed, well -nourished. ABSENT: cooperative Head exam: PRESENT: atraumatic, normocephalic Eye exam: PRESENT: conjunctiva pale. ABSENT: nystagmus, periorbital swelling, scleral icterus Mouth exam: PRESENT: dry mucosa, neck supple, tongue midline, other - ET tube Neck exam: ABSENT: carotid bruit, JVD, lymphadenopathy, thyromegaly, tracheal deviation, tracheostomy Respiratory exam: PRESENT: decreased breath sounds, prolonged expiratory phas, rales, rhonchi, unlabored, wheezes. ABSENT: retraction, stridor Cardiovascular exam: PRESENT: irregular rhythm, tachycardia Pulses: PRESENT: normal radial pulses GI/Abdominal exam: PRESENT: hypoactive bowel sounds, soft Gentrourinary exam: PRESENT: indwelling catheter Extremities exam: ABSENT: clubbing, joint swelling Musculoskeletal exam: ABSENT: ambulatory, deformity, dislocation Neurological exam: ABSENT: awake, oriented to person Skin exam: PRESENT: dry, warm Results Laboratory Results: 01/24/18 06:50 01/24/18 13:45 01/24/18 01/24/18 01/24/18 06:50 06:50 06:56 WBC 18.0 H RBC 4.80 Hgb 13.3 L Hct 41.6 MCV 87 MCH 27.7 MCHC 32.0 RDW 16.2 H Plt Count 181 Seg Neutrophils % 77.6 Lymphocytes % 9.7 L Monocytes % 12.1 Eosinophils % 0.2 Basophils % 0.4 Absolute Neutrophils 13.9 H Absolute Lymphocytes 1.7 Absolute Monocytes 2.2 H Absolute Eosinophils 0.0 Absolute Basophils 0.1 Sodium 165.0 H Potassium 3.7 Chloride 130 H Carbon Dioxide 23 Anion Gap 12 BUN 21 H Creatinine 1.13 Est GFR ( Amer) > 60 Est GFR (Non-Af Amer) > 60 Glucose 102 Calcium 8.4 Total Bilirubin 0.4 AST 38 ALT 21 Alkaline Phosphatase 75 Ammonia < 8.7 L Total Protein 5.9 L Albumin 2.7 L 01/24/18 13:45 WBC RBC Hgb Hct MCV MCH MCHC RDW Plt Count Seg Neutrophils % Lymphocytes % Monocytes % Eosinophils % Basophils % Absolute Neutrophils Absolute Lymphocytes Absolute Monocytes Absolute Eosinophils Absolute Basophils Sodium 161.4 H Potassium 3.7 Chloride 127 H Carbon Dioxide 25 Anion Gap 9 BUN 21 H Creatinine 1.31 H Est GFR ( Amer) > 60 Est GFR (Non-Af Amer) 52 L Glucose 99 Calcium 8.4 Total Bilirubin AST ALT Alkaline Phosphatase Ammonia Total Protein Albumin 01/23/18 01/23/18 01/24/18 18:24 18:24 00:19 Creatine Kinase 232 H 187 H CK-MB (CK-2) 3.80 Troponin I 0.113 01/24/18 01/24/18 01/24/18 00:19 06:50 06:50 Creatine Kinase 136 CK-MB (CK-2) 2.43 1.80 Troponin I 0.105 0.100 Impressions: Chest/Abdomen CTA 01/04/18 17:22 IMPRESSION: 1. There is no evidence of pulmonary emboli. 2. Centrilobular emphysema. Subsegmental atelectasis. Small pleural effusions. Calcified pleural plaques. Head CT 01/08/18 00:00 IMPRESSION: CHRONIC CHANGES OF ATROPHY AND MICROVASCULAR ISCHEMIA. NO CT EVIDENCE OF ACUTE INTRACRANIAL HEMORRHAGE OR LARGE TERRITORY ACUTE ISCHEMIA. EVIDENCE OF ACUTE STROKE: NO. KUB X-Ray 01/22/18 16:35 IMPRESSION: Nasogastric tube in the stomach. Soft Tissue Neck CT 01/24/18 03:47 IMPRESSION: 1.1 cm and 0.8 cm nodular enlargement of the left parapharyngeal space and left paracentral retropharyngeal space at the level of the hyoid causes mild narrowing at the laryngeal inlet. Differential etiologies include infectious, inflammatory, and neoplastic processes. Assessment & Plan - Diagnosis (1) Acute renal failure (ARF) Is this a current diagnosis for this admission?: Yes Plan: grossly bloody fluid in [place] cath Labs- All tests 24 hr 01/05/18 01/07/18 01/09/18 04:28 08:55 04:55 Creatinine 0.87 0.82 0.84 01/11/18 01/21/18 01/22/18 04:41 15:30 07:11 Creatinine 0.91 1.28 H 1.08 01/23/18 01/24/18 01/24/18 06:33 06:50 13:45 Creatinine 1.16 1.13 1.31 H 01/24/18 17:27 Creatinine 1.38 H (2) Atrial fibrillation with RVR Is this a current diagnosis for this admission?: Yes Plan: tachycardia (3) COPD (chronic obstructive pulmonary disease) Qualifiers: COPD type: unspecified COPD Qualified Code(s): J44.9 - Chronic obstructive pulmonary disease, unspecified Is this a current diagnosis for this admission?: Yes Plan: LABA+JONATHAN+LAMA no ICCS at this time (4) Hypernatremia Is this a current diagnosis for this admission?: Yes Plan: Labs- All tests 24 hr 01/04/18 01/05/18 01/07/18 16:50 04:28 08:55 Sodium 144.1 144.9 142.4 01/09/18 01/11/18 01/21/18 04:55 04:41 15:30 Sodium 144.0 144.2 163.1 H 01/22/18 01/23/18 01/24/18 07:11 06:33 06:50 Sodium 161.2 H 164.1 H 165.0 H 01/24/18 01/24/18 13:45 17:27 Sodium 161.4 H 158.7 H (5) Hypertension Qualifiers: Hypertension type: essential hypertension Qualified Code(s): I10 - Essential (primary) hypertension Is this a current diagnosis for this admission?: Yes Plan: stable (6) Retropharyngeal and parapharyngeal abscess Is this a current diagnosis for this admission?: Yes Plan: intubation protect airway ENT consult - Time Total Critical Time (Minutes): 55
[2018-01-24] MEDS ORDERED: SUCCINYLCHOLINE CHLORIDE INJ 200 MG/10 ML VIAL ONE (20:41)
[2018-01-24 21:29] LABS: ANION GAP 10 (5-19); BLOOD UREA NITROGEN 19 mg/dL (7-20); CALCIUM 8.1 mg/dL (8.4-10.2); CARBON DIOXIDE 23 mmol/L (22-30); CHLORIDE 124 mmol/L (98-107); GLUCOSE 137 mg/dL (75-110); POTASSIUM 3.1 mmol/L (3.6-5.0); SODIUM 156.5 mmol/L (137-145)
[2018-01-24] MEDS ORDERED: POTASSIUM CHLORIDE 20 MEQ/15 ML UDCUP PO ONE (21:54)
--- NOTE | 2018-01-24 21:59 | CONSULTATION REPORT E ---
Consultation Report NAME: JUANITA ROACH : 1935 AGE: 82Y DATE: 01/24/2018 ROOM: 607 A TO: ROBBY RENTERIA D.O. FROM: Walker COHEN, Requesting Physician ENT CONSULTATION CHIEF COMPLAINT: Airway compromise and left neck infectious process. HISTORY OF PRESENT ILLNESS: This is an 82-year-old white male who has been followed and managed by the [facility] hospitalist service. The patient was initially admitted 01/04/2018 for atrial fibrillation with RVR. The patient subsequently developed alcohol withdrawal and has required ongoing management. The patient has been quite disoriented at times. The hospitalist consulted ENT due to the patient developing left neck fullness in the [employer] hours of 01/24/2018. This was noted by nursing staff. CT neck imaging with contrast was obtained with the impression as 1.1 cm and 0.8 cm nodular enlargement of the left parapharyngeal space and left paracentral retropharyngeal space at the level of the hyoid causing mild narrowing of the laryngeal inlet with differential etiologies including infectious, inflammatory, and neoplastic process. The patient was also noted to have some difficulty with breathing with gurgling sound at times. A second CT neck with contrast was obtained as a follow up imaging study with impression as: 1) Inflammation/edema in the subcutaneous fatty tissues of the left neck. This may be due to infection or other inflammatory process. No focal fluid collection or abscess is identified. 2) Somewhat indistinct appearance of the submandibular glands, particularly on the left with indistinct stranding in the adjacent fatty tissue. Consider possibility of sialadenitis. 3) A symmetric soft tissue nodularity on the left side and posterior wall of the airway as described. This is somewhat concerning for possible malignant process. After this second CT neck imaging was obtained, ENT was consulted. Due to the concern for airway compromise and the patient's current status ENT recommendation at that time was to transfer the patient to the ICU and notify anesthesia staff for acute/emergent airway intervention as indicated, which the hospitalist was in agreement with and the patient was transferred to the ICU. REVIEW OF SYSTEMS: Per patient's medical record, which was reviewed. PAST MEDICAL HISTORY: Is extensive and is per patient's medical record, which was reviewed. PAST SURGICAL HISTORY: Noncontributory. FAMILY HISTORY: Noncontributory. SOCIAL HISTORY: The patient is an alcoholic with longstanding alcohol abuse. PHYSICAL EXAMINATION: VITAL SIGNS: Per ICU chart and telemetry. GENERAL APPEARANCE: The patient is currently sedated and intubated in the ICU. NOSE: Left nasal passage with a nasogastric tube. Right nasal passage is patent. ORAL CAVITY/OROPHARYNX: The patient is with very poor dentition and is with gingivitis throughout. The dentition also appears necrotic and there is mild scattered purulence/exudate in these areas and in the sublingual distribution as well. There is an endotracheal tube present and stable. NECK: There is right tracheal deviation and left neck fullness, especially in the area of the left submandibular gland. EARS: Right EAC is unremarkable and the tympanic membrane is intact with no middle ear effusion. The left EAC is with a completely obstructing cerumen impaction with the TM not able to be visualized. NEUROLOGICAL: The patient is currently sedated and intubated in the ICU. SKIN: Dry and with age and sun related changes noted. PROCEDURE: Flexible fiberoptic nasopharyngeal laryngoscopy. With ICU nursing assistance the patient underwent a right transnasal flexible endoscopic evaluation with no right sided sinonasal polyps, PROJ MGR/stefania were clear except for scattered mucopurulence noted, the oropharynx/hypopharynx was significantly edematous with no obvious mass or lesion identified and the overall endoscopic view was limited due to the degree of edematous tissue changes and the presence of an endotracheal tube and nasogastric tube. IMAGING STUDIES: Initial CT neck imaging with contrast was obtained with the impression as 1.1 cm and 0.8 cm nodular enlargement of the left parapharyngeal space and left paracentral retropharyngeal space at the level of the hyoid causing mild narrowing of the laryngeal inlet with differential etiologies including infectious, inflammatory, and neoplastic process. A second CT neck with contrast was obtained as a follow up imaging study with impression as: 1) Inflammation/edema in the subcutaneous fatty tissues of the left neck. This may be due to infection or other inflammatory process. No focal fluid collection or abscess is identified. 2) Somewhat indistinct appearance of the submandibular glands, particularly on the left with indistinct stranding in the adjacent fatty tissue. Consider possibility of sialadenitis. 3) A symmetric soft tissue nodularity on the left side and posterior wall of the airway as described. This is somewhat concerning for possible malignant process. LABORATORY DATA: White count of 18, H and H of 13 and 41 respectively, platelets of 181 as of 01/24/18 at 0650. ASSESSMENT: 1. Acute airway distress. 2. Asymmetric soft tissue nodularity of the upper airway with concern for possible tumor/neoplastic process. 3. Inflammation/edema of the subcutaneous tissues of the left neck, which could represent infection or other inflammatory process, but no localized fluid collection of abscess is identified at present. 4. The patient is with left submandibular gland enlargement and adjacent fat stranding with concern for possible sialadenitis. 5. The patient is with necrotic dentition and gingivitis with concern for an odontogenic contributing etiology as well. PLAN: The case was discussed in detail with the hospitalist, Dr. Sullivan, and it was conveyed that no definitive tumor mass could be identified on flexible endoscopy, however, it was discussed that there is concern for both an inflammatory infectious process and a possible upper airway tumor/neoplastic process. The hospitalist will also discuss this in detail with the patient's family. ENT is available as needed. DICTATING PHYSICIAN: ROBBY RENTERIA D.O. [id number] PHY#: [id number] ID: [id number] JOB#: [id number] ACCT: [id number] cc:ROBBY RENTERIA D.O. > MTDHan
[2018-01-24] MEDS: DRONEDARONE HYDROCHLORIDE 400 MG TABLET PO SCH (22:05)
[2018-01-24] MEDS: ATORVASTATIN CALCIUM 20 MG TABLET NG SCH (22:09)
[2018-01-24] MEDS: POTASSI CL 20 MEQ/D5-1/2NS 1L 1000 ML IV PRN (22:26)
--- NOTE | 2018-01-24 23:38 | PDOC CONSULTATION ---
Consultation Consult Date: 01/24/18 Consult reason:: left neck mass History of Present Illness Admission Date/PCP: 01/05/18 11:16 DEBORAH ARTEAGA MD Patient complains of: pains and tenderness left neck History of Present Illness: JUANITA ROACH is a 82 year old male who was noted to have tender mass left neck. Pt has an NGT for meds. Patient not well oriented and cooperative. Past Medical History Cardiac Medical History: Reports: Hyperlipidema Pulmonary Medical History: Reports: Chronic Obstructive Pulmonary Disease (COPD) , Pneumonia GI Medical History: Reports: Gastroesophageal Reflux Disease Musculoskeltal Medical History: Reports: Arthritis Hematology: Denies: Sickle Cell Disease Infectious Medical History: Denies: Clostridium Difficile, HIV Social History Smoking Status: Former Smoker Frequency of Alcohol Use: None Drugs: None - Advance Directive Resuscitation Status: Do Not Resuscitate Family History Family History: Hypertension Parental Family History Reviewed: No Children Family History Reviewed: No Sibling(s) Family History Reviewed.: No Medication/Allergy Home Medications: Aspirin [Ecotrin 81 mg EC Tablet] 81 mg PO DAILY 12/06/11 Ibuprofen [Motrin 800 Mg Tablet] 400 mg PO DAILY 12/06/11 Lisinopril [Prinivil] 20 mg PO DAILY 12/06/11 Albuterol Sulfate [Proair Hfa Inhalation Aerosol 8.5 gm Mdi] 2 puff IH Q4HP PRN 01/05/18 Atorvastatin Calcium [Lipitor 20 mg Tablet] 20 mg PO QHS 01/05/18 Fluticasone/Salmeterol [Advair 500-50 Diskus 28 Dose] 1 inh IH Q12H 01/05/18 Pantoprazole Sodium [Protonix] 40 mg PO DAILY 01/05/18 Tiotropium [place] [Spiriva Respimat] 2 puff PO DAILY 01/05/18 Allergies/Adverse Reactions: No Known Allergies Allergy (Verified 12/06/11 11:52) Review of Systems ROS unobtainable: Due to mental status Physical Exam Vital Signs: Temp Pulse Resp BP Pulse Ox 98.7 F 82 20 125/78 100 01/24/18 22:00 01/24/18 18:00 01/24/18 20:00 01/24/18 18:00 01/24/18 20:05 Intake & Output 01/23/18 01/24/18 01/25/18 06:59 06:59 06:59 Intake Total 8946 2810 155 Output Total 210 Balance 2536 2810 1344 Weight 62 kg 66 kg General appearance: PRESENT: mild distress Head exam: PRESENT: atraumatic Eye exam: PRESENT: conjunctiva pink Neck exam: PRESENT: tenderness, other - 2 masses that are tender on the left side of neck. They roughly measured about 2.5 cm each. One close to the mandible Respiratory exam: PRESENT: clear to auscultation amina Pulses: PRESENT: normal radial pulses Vascular exam: PRESENT: normal capillary refill GI/Abdominal exam: PRESENT: soft Rectal exam: PRESENT: deferred Neurological exam: PRESENT: awake, other - non cooperative Psychiatric exam: PRESENT: anxious Skin exam: PRESENT: normal color, warm Results Laboratory Results: 01/24/18 06:50 01/24/18 20:52 01/24/18 01/24/18 01/24/18 06:50 06:50 06:56 WBC 18.0 H RBC 4.80 Hgb 13.3 L Hct 41.6 MCV 87 MCH 27.7 MCHC 32.0 RDW 16.2 H Plt Count 181 Seg Neutrophils % 77.6 Lymphocytes % 9.7 L Monocytes % 12.1 Eosinophils % 0.2 Basophils % 0.4 Absolute Neutrophils 13.9 H Absolute Lymphocytes 1.7 Absolute Monocytes 2.2 H Absolute Eosinophils 0.0 Absolute Basophils 0.1 Carbonic Acid HCO3/H2CO3 Ratio ABG pH ABG pCO2 ABG pO2 ABG HCO3 ABG O2 Saturation ABG Base Excess FiO2 Sodium 165.0 H Potassium 3.7 Chloride 130 H Carbon Dioxide 23 Anion Gap 12 BUN 21 H Creatinine 1.13 Est GFR ( Amer) > 60 Est GFR (Non-Af Amer) > 60 Glucose 102 Calcium 8.4 Magnesium Total Bilirubin 0.4 AST 38 ALT 21 Alkaline Phosphatase 75 Ammonia < 8.7 L Total Protein 5.9 L Albumin 2.7 L 01/24/18 01/24/18 01/24/18 13:45 16:10 17:27 WBC RBC Hgb Hct MCV MCH MCHC RDW Plt Count Seg Neutrophils % Lymphocytes % Monocytes % Eosinophils % Basophils % Absolute Neutrophils Absolute Lymphocytes Absolute Monocytes Absolute Eosinophils Absolute Basophils Carbonic Acid 1.21 HCO3/H2CO3 Ratio 17:1 ABG pH 7.35 ABG pCO2 40.3 ABG pO2 199.6 H ABG HCO3 21.6 ABG O2 Saturation 99.3 H ABG Base Excess -3.7 FiO2 60% Sodium 161.4 H 158.7 H Potassium 3.7 3.5 L Chloride 127 H 125 H Carbon Dioxide 25 24 Anion Gap 9 10 BUN 21 H 20 Creatinine 1.31 H 1.38 H Est GFR ( Amer) > 60 59 L Est GFR (Non-Af Amer) 52 L 49 L Glucose 99 140 H Calcium 8.4 8.0 L Magnesium Total Bilirubin AST ALT Alkaline Phosphatase Ammonia Total Protein Albumin 01/24/18 01/24/18 20:52 20:52 WBC RBC Hgb Hct MCV MCH MCHC RDW Plt Count Seg Neutrophils % Lymphocytes % Monocytes % Eosinophils % Basophils % Absolute Neutrophils Absolute Lymphocytes Absolute Monocytes Absolute Eosinophils Absolute Basophils Carbonic Acid HCO3/H2CO3 Ratio ABG pH ABG pCO2 ABG pO2 ABG HCO3 ABG O2 Saturation ABG Base Excess FiO2 Sodium 156.5 H Potassium 3.1 L Chloride 124 H Carbon Dioxide 23 Anion Gap 10 BUN 19 Creatinine 1.31 H Est GFR ( Amer) > 60 Est GFR (Non-Af Amer) 52 L Glucose 137 H Calcium 8.1 L Magnesium 1.9 Total Bilirubin AST ALT Alkaline Phosphatase Ammonia Total Protein Albumin 01/23/18 01/23/18 01/24/18 18:24 18:24 00:19 Creatine Kinase 232 H 187 H CK-MB (CK-2) 3.80 Troponin I 0.113 01/24/18 01/24/18 01/24/18 00:19 06:50 06:50 Creatine Kinase 136 CK-MB (CK-2) 2.43 1.80 Troponin I 0.105 0.100 Impressions: Chest/Abdomen CTA 01/04/18 17:22 IMPRESSION: 1. There is no evidence of pulmonary emboli. 2. Centrilobular emphysema. Subsegmental atelectasis. Small pleural effusions. Calcified pleural plaques. Head CT 01/08/18 00:00 IMPRESSION: CHRONIC CHANGES OF ATROPHY AND MICROVASCULAR ISCHEMIA. NO CT EVIDENCE OF ACUTE INTRACRANIAL HEMORRHAGE OR LARGE TERRITORY ACUTE ISCHEMIA. EVIDENCE OF ACUTE STROKE: NO. KUB X-Ray 01/22/18 16:35 IMPRESSION: Nasogastric tube in the stomach. Chest X-Ray 01/24/18 00:00 IMPRESSION: SATISFACTORY POSITION OF ENDOTRACHEAL TUBE AND NASOGASTRIC TUBE. OTHERWISE GROSSLY STABLE APPEARANCE OF THE CHEST WHEN COMPARED TO PRIOR CT. Pelvis Ultrasound 01/24/18 00:00 IMPRESSION: AGUILAR CATHETER APPEARS TO BE IN PROPER POSITION WITHIN THE URINARY BLADDER. Soft Tissue Neck CT 01/24/18 03:47 IMPRESSION: 1.1 cm and 0.8 cm nodular enlargement of the left parapharyngeal space and left paracentral retropharyngeal space at the level of the hyoid causes mild narrowing at the laryngeal inlet. Differential etiologies include infectious, inflammatory, and neoplastic processes. Renal Ultrasound 01/24/18 17:10 IMPRESSION: There is cortical thinning in the left kidney. The study is otherwise normal. Assessment & Plan - Time Time Spent: 30 to 50 Minutes - Plan Summary Plan Summary: Consulted ENT Ordered an Ultrasound but had CT scan done which showed stenosis of upper airway. Suggested intubation. Patient eventually intubated in ICU. Spoke to ENT just prior to intubation who agreed. He won't be able to see patient until 6 pm
[2018-01-25] MEDS: PIPERACILLIN SODIUM/TAZOBACTAM 3.375 GM in NORMAL SALINE 100 ML IV SCH ×3 (00:03→11:12)
[2018-01-25] MEDS: MIDAZOLAM HCL 50 MG/100 ML RTUINJ IV-INFUSE PRN (01:07)
[2018-01-25 01:30] LABS: ANION GAP 11 (5-19); BLOOD UREA NITROGEN 18 mg/dL (7-20); CARBON DIOXIDE 22 mmol/L (22-30); CHLORIDE 124 mmol/L (98-107); GLUCOSE 131 mg/dL (75-110); POTASSIUM 3.4 mmol/L (3.6-5.0); SODIUM 156.7 mmol/L (137-145)
[2018-01-25] MEDS: DEXTROSE 5%-WATER 250 ML with PHENYLEPHRINE HCL 40 MG IV PRN ×2 (02:59)
[2018-01-25 05:18] LABS: INTERNATIONAL RATION (INR) 1.48; PROTHROMBIN TIME 18.7 SEC (11.4-15.4)
[2018-01-25 05:19] LABS: PARTIAL THROMBOPLASTIN TIME 47.2 SEC (23.5-35.8)
[2018-01-25 05:29] LABS: ABSOLUTE BASOPHILS # (AUTO) 0.1 10^3/uL (0.0-0.2); ABSOLUTE EOSINOPHILS # (AUTO) 0.1 10^3/uL (0.0-0.6); ABSOLUTE LYMPHOCYTES (AUTO) 2.2 10^3/uL (0.5-4.7); ABSOLUTE MONOCYTES (AUTO) 1.8 10^3/uL (0.1-1.4); ABSOLUTE NEUT (AUTO) 13.6 10^3/uL (1.7-8.2); BASOPHILS % (AUTO) 0.5 % (0-2); EOSINOPHILS % (AUTO) 0.3 % (0-6); HEMATOCRIT 36.6 % (37.9-51.0); HEMOGLOBIN 11.4 g/dL (13.5-17.0); LYMPHOCYTES % (AUTO) 12.2 % (13-45); MEAN CORPUSCULAR HEMOGLOBIN 26.7 pg (27.0-33.4); MEAN CORPUSCULAR HGB CONC 31.1 g/dL (32.0-36.0); MEAN CORPUSCULAR VOLUME 86 fl (80-97); MONOCYTES % (AUTO) 10.4 % (3-13); PLATELET COUNT 169 10^3/uL (150-450); RED BLOOD COUNT 4.26 10^6/uL (4.35-5.55); RED CELL DISTRIBUTION WIDTH 16.3 % (11.5-14.0); SEGMENTED NEUTROPHILS % (AUTO) 76.6 % (42-78); TOTAL CELLS COUNTED % (AUTO) 100 %; WHITE BLOOD COUNT 17.7 10^3/uL (4.0-10.5)
[2018-01-25 05:36] LABS: ALANINE AMINOTRANSFERASE 25 U/L (21-72); ALBUMIN 2.3 g/dL (3.5-5.0); ALKALINE PHOSPHATASE 71 U/L (38-126); ANION GAP 8 (5-19); ASPARTATE AMINO TRANSFERASE 33 U/L (17-59); BILIRUBIN,DIRECT 0.3 mg/dL (0.0-0.4); BILIRUBIN,TOTAL 0.3 mg/dL (0.2-1.3); BLOOD UREA NITROGEN 17 mg/dL (7-20); CALCIUM 7.9 mg/dL (8.4-10.2); CARBON DIOXIDE 23 mmol/L (22-30); CHLORIDE 123 mmol/L (98-107); GLUCOSE 147 mg/dL (75-110); PHOSPHORUS 1.6 mg/dL (2.5-4.5); POTASSIUM 3.4 mmol/L (3.6-5.0); SODIUM 153.6 mmol/L (137-145); TOTAL PROTEIN 5.1 g/dL (6.3-8.2)
[2018-01-25 06:09] LABS: ARTERIAL BLOOD BASE EXCESS -1.5 mmol/L; ARTERIAL BLOOD H2CO3 0.68 mmol/L (1.05-1.35); ARTERIAL BLOOD HCO3 19.2 mmol/L (20-26); ARTERIAL BLOOD O2 SATURATION 97.1 % (94-98); ARTERIAL BLOOD PCO2 22.7 mmHg (35-45); ARTERIAL BLOOD PH 7.55 (7.35-7.45); ARTERIAL BLOOD PO2 78.8 mmHg (80-100); ARTERIAL BLOOD TOTAL CO2 19.9 mmol/L (23-27)
[2018-01-25] MEDS: METOPROLOL TARTRATE 50 MG TABLET NG SCH (06:09)
[2018-01-25] MEDS: LANSOPRAZOLE 30 MG TAB.RAP.DR NG SCH (06:13)
[2018-01-25 06:16] LABS: ARTERIAL BLOOD FIO2 21%
--- NOTE | 2018-01-25 07:19 | RADIOLOGY REPORT (SQ) ---
EXAM DESCRIPTION: XR CHEST 1 VIEW CLINICAL HISTORY: 82 years Male, resp failure COMPARISON: One day prior. NUMBER OF VIEWS/TECHNIQUE: 1/AP Limitation: Right costophrenic angle minimally clipped off image. FINDINGS: Small left basilar opacity-effusion, normal cardiac silhouette size, atherosclerosis, endotracheal tube tip is 4.1 cm from the ramila, likely adequate enteric tube obscured at its tip. No pneumothorax. No acute bone defect. IMPRESSION: No significant change.
[2018-01-25] MEDS: ASPIRIN 81 MG TABLET, CHEWABLE NG SCH (09:21)
[2018-01-25] MEDS: THIAMINE HCL 100 MG TABLET NG SCH (09:21)
[2018-01-25] MEDS: DRONEDARONE HYDROCHLORIDE 400 MG TABLET PO SCH (09:26)
[2018-01-25] MEDS ORDERED: CHLORHEXIDINE GLUCONATE 0.12% ORAL RINSE 15 ML UDC MM SCH (10:00)
[2018-01-25] MEDS: PROPOFOL 1,000 MG/100 ML INFUS..BTL IV PRN (10:01)
[2018-01-25] MEDS: POTASSI CL 20 MEQ/D5-1/2NS 1L 1000 ML IV PRN (10:09)
[2018-01-25 10:26] LABS: ARTERIAL BLOOD BASE EXCESS -1.6 mmol/L; ARTERIAL BLOOD H2CO3 0.98 mmol/L (1.05-1.35); ARTERIAL BLOOD HCO3 21.8 mmol/L (20-26); ARTERIAL BLOOD O2 SATURATION 96.3 % (94-98); ARTERIAL BLOOD PCO2 32.7 mmHg (35-45); ARTERIAL BLOOD PH 7.44 (7.35-7.45); ARTERIAL BLOOD PO2 80.2 mmHg (80-100); ARTERIAL BLOOD TOTAL CO2 22.8 mmol/L (23-27)
[2018-01-25 10:27] LABS: ARTERIAL BLOOD FIO2 25%
[2018-01-25] MEDS ORDERED: NORMAL SALINE IV ONE (10:30)
[2018-01-25] MEDS ORDERED: POTASSIUM PHOS M BASIC D BASIC IV ONE (10:30)
[2018-01-25 10:52] LABS: ANION GAP 6 (5-19); BLOOD UREA NITROGEN 16 mg/dL (7-20); CALCIUM 7.7 mg/dL (8.4-10.2); CARBON DIOXIDE 24 mmol/L (22-30); CHLORIDE 121 mmol/L (98-107); GLUCOSE 152 mg/dL (75-110); POTASSIUM 3.2 mmol/L (3.6-5.0); SODIUM 151.3 mmol/L (137-145)
[2018-01-25] MEDS: APIXABAN 5 MG TABLET NG SCH (10:54)
--- NOTE | 2018-01-25 11:29 | PDOC PROGRESS REPORT ---
Subjective Progress Note for:: 01/25/18 Subjective:: intubated Reason For Visit: PAROXYSMAL ATRIAL FLUTTER Physical Exam Vital Signs: Temp Pulse Resp BP Pulse Ox 99 F 67 20 125/78 100 01/25/18 05:30 01/25/18 08:00 01/24/18 20:00 01/24/18 18:00 01/25/18 03:37 Intake & Output 01/24/18 01/25/18 01/26/18 06:59 06:59 06:59 Intake Total 2810 3782 Output Total 570 Balance 2810 3212 Weight 66 kg 70.3 kg General appearance: PRESENT: no acute distress, disheveled, well-developed, well -nourished. ABSENT: cooperative Head exam: PRESENT: atraumatic, normocephalic Eye exam: PRESENT: conjunctiva pale. ABSENT: nystagmus, periorbital swelling, scleral icterus Mouth exam: PRESENT: dry mucosa, neck supple, tongue midline, other - ET tube Neck exam: ABSENT: carotid bruit, JVD, lymphadenopathy, thyromegaly, tracheal deviation, tracheostomy Respiratory exam: PRESENT: decreased breath sounds, prolonged expiratory phas, rhonchi, unlabored, wheezes. ABSENT: rales, retraction, stridor, tachypnea Cardiovascular exam: PRESENT: RRR, +S1, +S2, tachycardia Pulses: PRESENT: normal radial pulses GI/Abdominal exam: PRESENT: soft Extremities exam: ABSENT: calf tenderness, clubbing Musculoskeletal exam: ABSENT: deformity, dislocation Neurological exam: ABSENT: awake, oriented to person Skin exam: PRESENT: dry, warm Results Laboratory Results: 01/25/18 05:04 01/25/18 05:04 01/24/18 01/24/18 01/24/18 13:45 16:10 17:27 WBC RBC Hgb Hct MCV MCH MCHC RDW Plt Count Seg Neutrophils % Lymphocytes % Monocytes % Eosinophils % Basophils % Absolute Neutrophils Absolute Lymphocytes Absolute Monocytes Absolute Eosinophils Absolute Basophils Carbonic Acid 1.21 HCO3/H2CO3 Ratio 17:1 ABG pH 7.35 ABG pCO2 40.3 ABG pO2 199.6 H ABG HCO3 21.6 ABG O2 Saturation 99.3 H ABG Base Excess -3.7 FiO2 60% Sodium 161.4 H 158.7 H Potassium 3.7 3.5 L Chloride 127 H 125 H Carbon Dioxide 25 24 Anion Gap 9 10 BUN 21 H 20 Creatinine 1.31 H 1.38 H Est GFR ( Amer) > 60 59 L Est GFR (Non-Af Amer) 52 L 49 L Glucose 99 140 H Calcium 8.4 8.0 L Phosphorus Magnesium Total Bilirubin AST ALT Alkaline Phosphatase Total Protein Albumin 01/24/18 01/24/18 01/25/18 20:52 20:52 01:05 WBC RBC Hgb Hct MCV MCH MCHC RDW Plt Count Seg Neutrophils % Lymphocytes % Monocytes % Eosinophils % Basophils % Absolute Neutrophils Absolute Lymphocytes Absolute Monocytes Absolute Eosinophils Absolute Basophils Carbonic Acid HCO3/H2CO3 Ratio ABG pH ABG pCO2 ABG pO2 ABG HCO3 ABG O2 Saturation ABG Base Excess FiO2 Sodium 156.5 H 156.7 H Potassium 3.1 L 3.4 L Chloride 124 H 124 H Carbon Dioxide 23 22 Anion Gap 10 11 BUN 19 18 Creatinine 1.31 H 1.17 Est GFR ( Amer) > 60 > 60 Est GFR (Non-Af Amer) 52 L 59 L Glucose 137 H 131 H Calcium 8.1 L 8.0 L Phosphorus Magnesium 1.9 Total Bilirubin AST ALT Alkaline Phosphatase Total Protein Albumin 01/25/18 01/25/18 01/25/18 05:04 05:04 06:00 WBC 17.7 H RBC 4.26 L Hgb 11.4 L Hct 36.6 L MCV 86 MCH 26.7 L MCHC 31.1 L RDW 16.3 H Plt Count 169 Seg Neutrophils % 76.6 Lymphocytes % 12.2 L Monocytes % 10.4 Eosinophils % 0.3 Basophils % 0.5 Absolute Neutrophils 13.6 H Absolute Lymphocytes 2.2 Absolute Monocytes 1.8 H Absolute Eosinophils 0.1 Absolute Basophils 0.1 Carbonic Acid 0.68 L HCO3/H2CO3 Ratio 28:1 ABG pH 7.55 H ABG pCO2 22.7 L ABG pO2 78.8 L ABG HCO3 19.2 L ABG O2 Saturation 97.1 ABG Base Excess -1.5 FiO2 21% Sodium 153.6 H Potassium 3.4 L Chloride 123 H Carbon Dioxide 23 Anion Gap 8 BUN 17 Creatinine 1.10 Est GFR ( Amer) > 60 Est GFR (Non-Af Amer) > 60 Glucose 147 H Calcium 7.9 L Phosphorus 1.6 L Magnesium 2.0 Total Bilirubin 0.3 AST 33 ALT 25 Alkaline Phosphatase 71 Total Protein 5.1 L Albumin 2.3 L 01/23/18 01/23/18 01/24/18 18:24 18:24 00:19 Creatine Kinase 232 H 187 H CK-MB (CK-2) 3.80 Troponin I 0.113 NT-Pro-B Natriuret Pep 01/24/18 01/24/18 01/24/18 00:19 06:50 06:50 Creatine Kinase 136 CK-MB (CK-2) 2.43 1.80 Troponin I 0.105 0.100 NT-Pro-B Natriuret Pep 01/25/18 05:04 Creatine Kinase CK-MB (CK-2) Troponin I NT-Pro-B Natriuret Pep 8090 H Impressions: Chest/Abdomen CTA 01/04/18 17:22 IMPRESSION: 1. There is no evidence of pulmonary emboli. 2. Centrilobular emphysema. Subsegmental atelectasis. Small pleural effusions. Calcified pleural plaques. Head CT 01/08/18 00:00 IMPRESSION: CHRONIC CHANGES OF ATROPHY AND MICROVASCULAR ISCHEMIA. NO CT EVIDENCE OF ACUTE INTRACRANIAL HEMORRHAGE OR LARGE TERRITORY ACUTE ISCHEMIA. EVIDENCE OF ACUTE STROKE: NO. KUB X-Ray 01/22/18 16:35 IMPRESSION: Nasogastric tube in the stomach. Pelvis Ultrasound 01/24/18 00:00 IMPRESSION: CEDENO CATHETER APPEARS TO BE IN PROPER POSITION WITHIN THE URINARY BLADDER. Soft Tissue Neck CT 01/24/18 03:47 IMPRESSION: 1.1 cm and 0.8 cm nodular enlargement of the left parapharyngeal space and left paracentral retropharyngeal space at the level of the hyoid causes mild narrowing at the laryngeal inlet. Differential etiologies include infectious, inflammatory, and neoplastic processes. Renal Ultrasound 01/24/18 17:10 IMPRESSION: There is cortical thinning in the left kidney. The study is otherwise normal. Chest X-Ray 01/25/18 06:00 IMPRESSION: No significant change. Assessment & Plan - Diagnosis (1) Acute renal failure (ARF) Is this a current diagnosis for this admission?: Yes Plan: grossly bloody fluid in cedeno cath Labs- All tests 24 hr 01/05/18 01/07/18 01/09/18 04:28 08:55 04:55 Creatinine 0.87 0.82 0.84 01/11/18 01/21/18 01/22/18 04:41 15:30 07:11 Creatinine 0.91 1.28 H 1.08 01/23/18 01/24/18 01/24/18 06:33 06:50 13:45 Creatinine 1.16 1.13 1.31 H 01/24/18 17:27 Creatinine 1.38 H (2) Atrial fibrillation with RVR Is this a current diagnosis for this admission?: Yes Plan: tachycardia (3) COPD (chronic obstructive pulmonary disease) Qualifiers: COPD type: unspecified COPD Qualified Code(s): J44.9 - Chronic obstructive pulmonary disease, unspecified Is this a current diagnosis for this admission?: Yes Plan: LABA+JONATHAN+LAMA no ICCS at this time (4) Hypernatremia Is this a current diagnosis for this admission?: Yes (5) Hypertension Qualifiers: Hypertension type: essential hypertension Qualified Code(s): I10 - Essential (primary) hypertension Is this a current diagnosis for this admission?: Yes Plan: stable (6) Retropharyngeal and parapharyngeal abscess Is this a current diagnosis for this admission?: Yes Plan: intubation protect airway ENT consult - Time Total Critical Time (Minutes): 50
[2018-01-25] MEDS ORDERED: DEXTROSE 5%-NORMAL SALINE 1,000 ML IV PRN (12:45)
[2018-01-25 12:51] VITALS: BP 114/61
--- NOTE | 2018-01-25 13:08 | PDOC TRANSFER SUMMARY ---
General Admission Date/PCP: 01/05/18 11:16 DEBORAH ARTEAGA MD Admission Date: 01/04/18 Transfer Date: 01/25/18 Accepting Facility: [facility] Accepting Physician: Dr. Ricardo Carlson Resuscitation Status: Do Not Resuscitate - Patient's family members have clearly stated that they would like aggressive medical interventions including intubation, mechanical ventilation, and surgical interventions as necessary. - Transfer Diagnosis (1) Atrial fibrillation with RVR Is this a current diagnosis for this admission?: Yes Diagnosis Summary: Currently sinus bradycardia with rate of 57. Diltiazem drip discontinued this morning; initiated Cardizem 120 mg every 8 hours via NG tube. Eliquis resumed this morning. Continued daily aspirin therapy. (2) Parapharyngeal space mass Is this a current diagnosis for this admission?: Yes Diagnosis Summary: Sudden onset of airway compromise noted treatment counselor 01/24/18. Initial CT of the neck with IV contrast reveals 1.1 cm x 0.8 cm nodular enlargement of the left parapharyngeal space with mild narrowing of the laryngeal inlet. Nursing staff noted rapidly worsening external left lateral neck edema throughout the morning. Repeat noncontrasted CT was obtained [address] study. Repeat imaging revealed inflammation/edema in the subcutaneous fatty tissues on the left side of the neck, no focal fluid collection or abscess was identified. There was a somewhat indistinct appearance of the submandibular gland particularly on the left, with an distinct stranding in the adjacent fatty tissues. Consider possibility of sialoadenitis. Asymmetric soft tissue nodularity on the left side and posterior wall of the airway was identified. This was somewhat concerning for possible malignant process. The patient continued to have wet breath sounds due to difficulty managing oral secretions. There was concern that the edema was encroaching upon his airway. Therefore, the patient was transferred to our ICU and intubated by the anesthesia team. Anesthesia commented on right tracheal deviation, vocal cords were not visualized secondary to anatomical changes. They also described purulent fluid throughout the pharynx. Blood cultures, throat culture, and trachea aspirate cultures were obtained. The patient was empirically placed on IV vancomycin and Zosyn. The patient was sedated with propofol and Versed adjunctive drip. Initially, the patient was in atrial fibrillation with RVR and required IV diltiazem. He was noted to be hypotensive and therefore supported with Karlos-Synephrine. WBC 12.7 --> 18.0--> 17.7 Blood cultures: Pending Throat culture: Greatly reduced normal kasey; rapid strep negative Trachea aspirate: Gram-negative rods, identification and sensitivities pending. On morning rounds, pulmonology expressed concerns regarding likelihood of prolonged intubation and attentional for development of parapharyngeal abscesses requiring surgical intervention and lack of consistent ENT support. Pulmonology also anticipate likely need of tracheostomy will be difficult to obtain secondary to edema. Per their recommendations, arrangements were made for the patient to be transferred to a tertiary care facility. I spoke with Dr[facility] Ric[facility] who has graciously agreed to accept the patient for transfer. (3) Hypernatremia Is this a current diagnosis for this admission?: Yes Diagnosis Summary: Secondary to poor p.o. intake 5-7 days. On 01/21/18 sodium was noted to be 163.1. At that time, the patient was alert and oriented to self, confrontational and refusing all p.o. intake including medications. The patient's son, Juanita Snowden Jr (POFernandez) was contacted. He requested that the patient be evaluated for PEG tube. Surgery was consulted and evaluated the patient the following day. The patient remained hypernatremic and confused; surgery recommended correction of electrolytes prior to PEG placement. An NG tube was placed and tube feedings were initiated. Sodium peaked at 165.0 on 01/24/18. The patient became obtunded overnight, this is likely multifactorial secondary to hypernatremia and infectious process as described above. Tube feedings were held while being evaluated by ENT and surgery for potential need of surgical intervention. He was placed on D5W and chemistries were trended. Current sodium is 151.3. The patient's sodium has dropped 10.1 mmol/L in the last 24 hours; he is transitioned to D5NS at 100 ml/h immediately prior to transfer to tertiary care [place]. (4) Alcohol dependence Is this a current diagnosis for this admission?: Yes Diagnosis Summary: The patient has a history of daily EtOH use. At this time he is through the window for acute withdrawal symptoms. During active alcohol withdrawal he was supported with scheduled and as needed benzodiazepines. Last benzodiazepine dose for acute anxiety/agitation/EtOH withdrawal was on 01/19. He did receive IV Haldol for acute agitation on 01/07/18. He was subsequently placed on Depakote for agitation; this was discontinued upon transfer to ICU. (5) Acute encephalopathy Is this a current diagnosis for this admission?: Yes Diagnosis Summary: Most likely related to hypernatremia complicated by infectious process, dementia , alcohol dependence. Evaluation and supportive care as outlined elsewhere. (6) Anorexia Is this a current diagnosis for this admission?: Yes Diagnosis Summary: The patient had refused to eat for the previous 5 days; only taking small sips of water and juice at each meal and intermittently refusing and spitting out all medications. He was placed on Megace for appetite support without noted improvement in p.o. intake. This is since been discontinued. The previous provider contacted the patient's son, Juanita Snowden Jr (POA), who desired tube feedings. NG tube was placed on and tube feedings were initiated. Surgery was consulted for PEG tube placement; have deferred until electrolyte abnormalities have been corrected. Tube feeds held yesterday due to emergent requirement for intubation. After evaluation by surgery and ENT, tube feedings were resumed. Nursing has noted high residuals. Therefore have decreased to initial rate of 15 mL's per hour with free water flush of 30 mL's per hour. (7) COPD (chronic obstructive pulmonary disease) Is this a current diagnosis for this admission?: Yes Diagnosis Summary: Without exacerbation during this admission. The patient was able to take his home dose Spiriva and Advair therapy intermittently when compliant with medications. Patient is currently intubated for airway protection. As needed nebulizer treatments have been provided. On exam this morning the patient is noted to have subtle rhonchi and occasional expiratory wheezing. (8) Hypertension Is this a current diagnosis for this admission?: Yes Diagnosis Summary: History of hypertension. Yesterday, patient developed HYPOtension secondary to infectious process, atrial fibrillation with RVR resulting in poor cardiac output, and multiple medications. Patient has now converted to normal sinus rhythm; have resumed diltiazem per PNG tube. Continue metoprolol, aspirin, statin therapy per NG tube. Currently receiving Karlos-Synephrine for blood pressure support. (9) Leukocytosis Is this a current diagnosis for this admission?: Yes Diagnosis Summary: Secondary to infectious/inflammatory process of the retropharyngeal/ parapharyngeal space. Blood, throat, sputum cultures as above. He is empirically been placed on IV vancomycin and Zosyn. The patient has remained afebrile (T-max 99.3 axillary and last 48 hours). WBC 12.7--> 18.0--> 17.7 (10) Debility Is this a current diagnosis for this admission?: Yes Diagnosis Summary: Secondary to prolonged hospitalization. On 01/23/18, patient was able to stand with 2 person max assist. Now acutely decompensated, sedated, intubated, mechanically ventilated. - Transfer Medications Home Medications: Aspirin [Ecotrin 81 mg EC Tablet] 81 mg PO DAILY 12/06/11 Ibuprofen [Motrin 800 Mg Tablet] 400 mg PO DAILY 12/06/11 Lisinopril [Prinivil] 20 mg PO DAILY 12/06/11 Albuterol Sulfate [Proair Hfa Inhalation Aerosol 8.5 gm Mdi] 2 puff IH Q4HP PRN 01/05/18 Atorvastatin Calcium [Lipitor 20 mg Tablet] 20 mg PO QHS 01/05/18 Fluticasone/Salmeterol [Advair 500-50 Diskus 28 Dose] 1 inh IH Q12H 01/05/18 Pantoprazole Sodium [Protonix] 40 mg PO DAILY 01/05/18 Tiotropium [place] [Spiriva Respimat] 2 puff PO DAILY 01/05/18 Transfer Medications: Current Medications Acetaminophen (Tylenol 325 Mg Tablet) 650 mg NG Q4HP PRN PRN Reason: FEVER >101 Stop: 02/21/18 16:55 Apixaban (Eliquis 5 Mg Tablet) 5 mg NG BID ZINA Stop: 02/21/18 17:59 Last Admin: 01/25/18 10:54 Dose: 5 mg Aspirin (Aspirin 81 Mg Chewable Tablet) 81 mg NG DAILY ZINA Stop: 02/22/18 09:59 Last Admin: 01/25/18 09:21 Dose: 81 mg Atorvastatin Calcium (Lipitor 20 Mg Tablet) 20 mg NG QHS ZINA Stop: 02/21/18 21:59 Last Admin: 01/24/18 22:09 Dose: 20 mg Chlorhexidine Gluconate (Periogard 0.12% Oral Rinse 15 Ml) 15 ml MM BID ZINA Stop: 02/24/18 09:59 Last Admin: 01/25/18 08:53 Dose: 15 ml Dextrose (Dextrose Inj 50% Syringe (25 Gm/50 Ml)) 12.5 gm IV PRN PRN; Protocol PRN Reason: FOR BG 50-69 IN ALERT PATIENT Stop: 02/22/18 06:01 Dextrose (Dextrose Inj 50% Syringe (25 Gm/50 Ml)) 25 gm IV PRN PRN; Protocol PRN Reason: See Label Comments Stop: 02/22/18 06:01 Diltiazem HCl (Cardizem 60 Mg Tablet) 120 mg NG Q8 ZINA Stop: 02/22/18 13:59 Last Admin: 01/24/18 16:28 Dose: Not Given Dronedarone (Multaq 400 Mg Tablet) 400 mg PO Q12 ZINA Stop: 02/23/18 21:59 Last Admin: 01/25/18 09:26 Dose: 400 mg Glucagon (Glucagen Inj 1 Mg Vial) 1 mg SUBCUT PRN PRN; Protocol PRN Reason: Evaluate for BG < 70 Stop: 02/22/18 06:01 Glucose (Glutose 40% Gel 15 Gm Tube) 15 gm PO PRN PRN; Protocol PRN Reason: For BG 50-69 in Alert Patient Stop: 02/22/18 06:01 Glucose (Glutose 40% Gel 15 Gm Tube) 30 gm PO PRN PRN; Protocol PRN Reason: FOR BG < 50 IN ALERT PATIENT Stop: 02/22/18 06:01 Piperacillin Sod/Tazobactam (Sod 3.375 gm/ Sodium Chloride) 100 mls @ 200 mls/ hr IV Q6 [facility] Stop: 01/31/18 11:59 Last Admin: 01/25/18 11:12 Dose: 3.375 gm Diltiazem HCl (Cardizem Rtu Inj 125 Mg-D5w 125 Ml Premix) 125 mg in 125 mls @ 0 mls/hr IV CONTINUOUS PRN; Protocol; Titrate PRN Reason: THIS MED IS NOT "PRN" Stop: 02/23/18 13:13 Last Admin: 01/24/18 22:09 Dose: 125 ml Vancomycin HCl 1,500 mg/ (Dextrose) 250 mls @ 166.667 mls/hr IV DAILY@1500 ZINA Stop: 01/31/18 14:59 Last Admin: 01/24/18 16:21 Dose: 1,500 mg Propofol (Diprivan Rtu 1000 Mg/100 Ml Inf.Bottle) 1,000 mg in 100 mls @ 0 mls/ hr IV CONTINUOUS PRN; Protocol; Titrate PRN Reason: THIS MED IS NOT "PRN" Stop: 02/23/18 15:00 Last Admin: 01/25/18 10:01 Dose: 100 ml Hard Fat/Phenylephrine 40 mg/ (Dextrose) 250 mls @ 0 mls/hr IV CONTINUOUS PRN; Protocol; Titrate PRN Reason: THIS MED IS NOT "PRN" Stop: 02/23/18 15:38 Last Admin: 01/25/18 02:59 Dose: 40 mg Midazolam HCl (Versed Rtu 50 Mg/100 Ml Premix Bag) 50 mg in 100 mls @ 0 mls/hr IV-INFUSE CONTINUOUS PRN; Protocol; Titrate PRN Reason: THIS MED IS NOT "PRN" Stop: 01/31/18 16:41 Last Admin: 01/25/18 01:07 Dose: 100 ml Potassium Chloride/Dextrose/Sod Cl (D5-1/2ns 1000 Ml/Kcl 20 Meq Premix Bag) 1, 000 mls @ 100 mls/hr IV CONTINUOUS PRN PRN Reason: THIS MED IS NOT "PRN" Stop: 02/23/18 22:07 Last Admin: 01/25/18 10:09 Dose: 1,000 ml Potassium Phosphate 16 mmol/ (Sodium Chloride) 255.3333 mls @ 45 mls/hr IV NOW ONE Stop: 01/25/18 16:10 Last Admin: 01/25/18 10:14 Dose: 16 mmol Lansoprazole (Prevacid 30 Mg Odt Tablet) 30 mg NG Q6AM ZINA Stop: 02/22/18 05:59 Last Admin: 01/25/18 06:13 Dose: 30 mg Levalbuterol HCl (Xopenex Neb 0.63 Mg/3 Ml Ampul) 0.63 mg NEB RTQ6HP PRN PRN Reason: FOR WHEEZING Stop: 02/13/18 12:25 Megestrol Acetate (Megace [place] 400 Mg/10 Ml Udcup) 400 mg NG DAILY ZINA Stop: 02/22/18 09:59 Last Admin: 01/24/18 16:28 Dose: Not Given Memantine (Namenda 10 Mg Tablet) 10 mg NG QHS ZINA Stop: 02/21/18 21:59 Last Admin: 01/23/18 21:12 Dose: 10 mg Metoprolol Tartrate (Lopressor 50 Mg Tablet) 50 mg NG Q12A ZINA Stop: 02/21/18 17:59 Last Admin: 01/25/18 06:09 Dose: 50 mg Pharmacy Profile Note (Medication Communication Order) 1 each .NOTICE NR Stop: 02/21/18 16:44 Fluticasone/Salmeterol (Advair 500-50 Diskus 14 Dose/Diskus) 1 inh IH Q12 ZINA Stop: 02/06/18 21:59 Last Admin: 01/24/18 16:28 Dose: Not Given Sodium Chloride (Saline Flush 2.5 Ml Monoject Prefil Syrin) 2.5 ml IV Q8 ZINA Stop: 02/03/18 21:59 Last Admin: 01/25/18 06:14 Dose: Not Given Thiamine HCl (Thiamine 100 Mg Tablet) 100 mg NG DAILY ZINA Stop: 02/22/18 09:59 Last Admin: 01/25/18 09:21 Dose: 100 mg - Allergies Allergies/Adverse Reactions: No Known Allergies Allergy (Verified 12/06/11 11:52) - Diet/Activity Discharge Diet: Tube Feeding (Comments) - Jevity 1.5 15 mL/h, free water flush 30 mL hourly Discharge Activity: Bedrest Hospital Course Hospital Course: H&P: JUANITA SNOWDEN is a 82 year old male patient with past medical history of GERD, hypertension, hyperlipidemia and COPD noted from his primary care physician office at [facility] (formerly [facility]) for tachycardia with heart rate of 145. Otherwise patient does not have any acute complaints. No chills, fever, cough, chest pain, nausea, vomiting, abdominal pain, diarrhea, dizziness , headache, blurry vision or any seizure activity. No urinary complaints. He Works are unremarkable, TSH and CTA are negative. Patient is hydrated and given a dose of IV Lopressor but continue to have tachycardia ranging between 130 and 150. Course: The patient was admitted with sinus tachycardia with a rate between 130 and 150. He was divided IV fluids and IV Lopressor. He was then noted to intermittently display atrial flutter and atrial fibrillation with rapid ventricular response. He was admitted to [facility] and placed on a diltiazem drip. Initial workup was unremarkable; normal TSH, CTA was negative, benign chest x- ray. He converted to normal sinus rhythm while on diltiazem drip and was transitioned to p.o. Cardizem 6 every 8 hours. The patient then developed acute alcohol withdrawal and required continued IV fluids, scheduled and as needed benzodiazepines, haloperidol, and Depakote for management of agitation. Once through the acute alcohol withdrawal process, the patient regained alertness and was orientated to self and intermittently place. He remained intermittently confused, confrontational, and agitated. He spoke clearly with that was socially inappropriate with vulgar and lewd remarks towards staff. He was placed on scheduled Depakote for continued behavioral disturbance. The patient intermittently reviewed p.o. medications, food and water which progressed until complete refusal of all p.o. intake for 6 days. The patient's POA was contacted and requested evaluation for PEG tube placement. Surgery declined PEG tube until electrolyte derangements were managed (patient had developed hypernatremia). NG tube was placed for tube feedings. These were initiated. Unfortunately, overnight the patient developed acute airway compromise related to retropharyngeal and parapharyngeal inflammation and possible malignant neoplasm. Surgery and ENT consultations were obtained. Patient was transferred to the ICU and emergently intubated. Cultures were obtained and he was empirically placed on IV vancomycin and Zosyn. Arrangements have been made for the patient to be transferred [facility] where continuous critical care, surgery, ENT specialty services are available. Physical Exam Vital Signs: Temp Pulse Resp BP Pulse Ox 98.5 F 62 14 113/60 100 01/25/18 10:00 01/25/18 10:00 01/25/18 10:00 01/25/18 10:00 01/25/18 10:00 Intake & Output 01/24/18 01/25/18 01/26/18 06:59 06:59 06:59 Intake Total 2810 3782 Output Total 570 135 Balance 2810 3212 -135 Weight 66 kg 70.3 kg General appearance: PRESENT: well-developed, well-nourished, other - Sedated, intubated, mechanically ventilated Head exam: PRESENT: atraumatic, normocephalic Eye exam: PRESENT: conjunctiva pink. ABSENT: scleral icterus Mouth exam: PRESENT: dry mucosa, tongue midline, other - ET tube, NG tube Teeth exam: PRESENT: dental caries, poor dentation, other - Gingivitis, halitosis Neck exam: PRESENT: tenderness - Left lateral neck, tracheal deviation - Right- sided deviation, other - Left lateral edema, firm to palpation. No erythema.. ABSENT: carotid bruit, JVD, lymphadenopathy, thyromegaly Respiratory exam: PRESENT: prolonged expiratory phas, rhonchi, symmetrical, wheezes - Occasional expiratory wheezing left lower lobe summary, other - Intubated and mechanically ventilated. ABSENT: rales Cardiovascular exam: PRESENT: RRR, +S1, +S2, systolic murmur. ABSENT: diastolic murmur, rubs Vascular exam: PRESENT: normal capillary refill GI/Abdominal exam: PRESENT: hypoactive bowel sounds, soft, other - Passing flatus. ABSENT: distended, guarding, mass, organolmegaly, rebound, tenderness Rectal exam: PRESENT: deferred Gentrourinary exam: PRESENT: indwelling catheter - Hematuria with clots Extremities exam: ABSENT: calf tenderness, clubbing, pedal edema Neurological exam: PRESENT: other - Sedated. ABSENT: motor sensory deficit Psychiatric exam: ABSENT: homicidal ideation, suicidal ideation Skin exam: PRESENT: dry, intact, warm. ABSENT: cyanosis, rash Results Laboratory Results: 01/25/18 05:04 01/25/18 10:07 01/24/18 01/24/18 01/24/18 13:45 16:10 17:27 WBC RBC Hgb Hct MCV MCH MCHC RDW Plt Count Seg Neutrophils % Lymphocytes % Monocytes % Eosinophils % Basophils % Absolute Neutrophils Absolute Lymphocytes Absolute Monocytes Absolute Eosinophils Absolute Basophils Carbonic Acid 1.21 HCO3/H2CO3 Ratio 17:1 ABG pH 7.35 ABG pCO2 40.3 ABG pO2 199.6 H ABG HCO3 21.6 ABG O2 Saturation 99.3 H ABG Base Excess -3.7 FiO2 60% Sodium 161.4 H 158.7 H Potassium 3.7 3.5 L Chloride 127 H 125 H Carbon Dioxide 25 24 Anion Gap 9 10 BUN 21 H 20 Creatinine 1.31 H 1.38 H Est GFR ( Amer) > 60 59 L Est GFR (Non-Af Amer) 52 L 49 L Glucose 99 140 H Calcium 8.4 8.0 L Phosphorus Magnesium Total Bilirubin AST ALT Alkaline Phosphatase Total Protein Albumin 06/05/18 06/05/18 06/06/18 20:52 20:52 01:05 WBC RBC Hgb Hct MCV MCH MCHC RDW Plt Count Seg Neutrophils % Lymphocytes % Monocytes % Eosinophils % Basophils % Absolute Neutrophils Absolute Lymphocytes Absolute Monocytes Absolute Eosinophils Absolute Basophils Carbonic Acid HCO3/H2CO3 Ratio ABG pH ABG pCO2 ABG pO2 ABG HCO3 ABG O2 Saturation ABG Base Excess FiO2 Sodium 156.5 H 156.7 H Potassium 3.1 L 3.4 L Chloride 124 H 124 H Carbon Dioxide 23 22 Anion Gap 10 11 BUN 19 18 Creatinine 1.31 H 1.17 Est GFR ( Amer) > 60 > 60 Est GFR (Non-Af Amer) 52 L 59 L Glucose 137 H 131 H Calcium 8.1 L 8.0 L Phosphorus Magnesium 1.9 Total Bilirubin AST ALT Alkaline Phosphatase Total Protein Albumin 01/25/18 01/25/18 01/25/18 05:04 05:04 06:00 WBC 17.7 H RBC 4.26 L Hgb 11.4 L Hct 36.6 L MCV 86 MCH 26.7 L MCHC 31.1 L RDW 16.3 H Plt Count 169 Seg Neutrophils % 76.6 Lymphocytes % 12.2 L Monocytes % 10.4 Eosinophils % 0.3 Basophils % 0.5 Absolute Neutrophils 13.6 H Absolute Lymphocytes 2.2 Absolute Monocytes 1.8 H Absolute Eosinophils 0.1 Absolute Basophils 0.1 Carbonic Acid 0.68 L HCO3/H2CO3 Ratio 28:1 ABG pH 7.55 H ABG pCO2 22.7 L ABG pO2 78.8 L ABG HCO3 19.2 L ABG O2 Saturation 97.1 ABG Base Excess -1.5 FiO2 21% Sodium 153.6 H Potassium 3.4 L Chloride 123 H Carbon Dioxide 23 Anion Gap 8 BUN 17 Creatinine 1.10 Est GFR ( Amer) > 60 Est GFR (Non-Af Amer) > 60 Glucose 147 H Calcium 7.9 L Phosphorus 1.6 L Magnesium 2.0 Total Bilirubin 0.3 AST 33 ALT 25 Alkaline Phosphatase 71 Total Protein 5.1 L Albumin 2.3 L 01/25/18 01/25/18 10:07 10:08 WBC RBC Hgb Hct MCV MCH MCHC RDW Plt Count Seg Neutrophils % Lymphocytes % Monocytes % Eosinophils % Basophils % Absolute Neutrophils Absolute Lymphocytes Absolute Monocytes Absolute Eosinophils Absolute Basophils Carbonic Acid 0.98 L HCO3/H2CO3 Ratio 22:1 ABG pH 7.44 ABG pCO2 32.7 L ABG pO2 80.2 ABG HCO3 21.8 ABG O2 Saturation 96.3 ABG Base Excess -1.6 FiO2 25% Sodium 151.3 H Potassium 3.2 L Chloride 121 H Carbon Dioxide 24 Anion Gap 6 BUN 16 Creatinine 1.01 Est GFR ( Amer) > 60 Est GFR (Non-Af Amer) > 60 Glucose 152 H Calcium 7.7 L Phosphorus Magnesium Total Bilirubin AST ALT Alkaline Phosphatase Total Protein Albumin 01/24/18 17:30 Throat Throat Culture - Final GREATLY REDUCED NORMAL KASEY 01/23/18 01/23/18 01/24/18 18:24 18:24 00:19 Creatine Kinase 232 H 187 H CK-MB (CK-2) 3.80 Troponin I 0.113 NT-Pro-B Natriuret Pep 01/24/18 01/24/18 01/24/18 00:19 06:50 06:50 Creatine Kinase 136 CK-MB (CK-2) 2.43 1.80 Troponin I 0.105 0.100 NT-Pro-B Natriuret Pep 01/25/18 05:04 Creatine Kinase CK-MB (CK-2) Troponin I NT-Pro-B Natriuret Pep 8090 H Impressions: Chest/Abdomen CTA 01/04/18 17:22 IMPRESSION: 1. There is no evidence of pulmonary emboli. 2. Centrilobular emphysema. Subsegmental atelectasis. Small pleural effusions. Calcified pleural plaques. Head CT 01/08/18 00:00 IMPRESSION: CHRONIC CHANGES OF ATROPHY AND MICROVASCULAR ISCHEMIA. NO CT EVIDENCE OF ACUTE INTRACRANIAL HEMORRHAGE OR LARGE TERRITORY ACUTE ISCHEMIA. EVIDENCE OF ACUTE STROKE: NO. KUB X-Ray 01/22/18 16:35 IMPRESSION: Nasogastric tube in the stomach. Pelvis Ultrasound 01/24/18 00:00 IMPRESSION: AGUILAR CATHETER APPEARS TO BE IN PROPER POSITION WITHIN THE URINARY BLADDER. Soft Tissue Neck CT 01/24/18 03:47 IMPRESSION: 1.1 cm and 0.8 cm nodular enlargement of the left parapharyngeal space and left paracentral retropharyngeal space at the level of the hyoid causes mild narrowing at the laryngeal inlet. Differential etiologies include infectious, inflammatory, and neoplastic processes. Renal Ultrasound 01/24/18 17:10 IMPRESSION: There is cortical thinning in the left kidney. The study is otherwise normal. Chest X-Ray 01/25/18 06:00 IMPRESSION: No significant change. Plan Discharge Plan: Transfer to [facility] under the care of Dr. Ricardo Fung Time Spent: Greater than 30 Minutes
--- NOTE | 2018-01-25 19:43 | PDOC PROGRESS REPORT ---
Subjective Progress Note for:: 01/25/18 Subjective:: Events of last afternoon reviewed. It seems patient was noted to have upper respiratory problem. He was subsequently intubated and moved to the unit. Earlier in the day patient was started on multaq for atrial flutter fibrillation. Yesterday reconsult by hospitalist because of EKG being abnormal and also positive troponin I. These are in the indeterminate range. In addition patient is noted to be severely hypernatremic. Patient has reverted back into atrial fibrillation with rapid ventricular response being noted intermittently. However subsequently patient converted back to sinus rhythm after I believe 1 dose of multaq. Patient also noted to be intermittently bradycardic. Cardizem was held today. Patient today seems to be in sinus rhythm. Reason For Visit: PAROXYSMAL ATRIAL FLUTTER Physical Exam Vital Signs: Temp Pulse Resp BP Pulse Ox 98.4 F 60 16 114/61 100 01/25/18 12:00 01/25/18 12:00 01/25/18 12:00 01/25/18 12:00 01/25/18 12:00 Intake & Output 01/24/18 01/25/18 01/26/18 06:59 06:59 06:59 Intake Total 2810 3782 Output Total 570 195 Balance 2810 3212 -195 Weight 66 kg 70.3 kg Exam: GENERAL: well-nourished and in no acute distress. Patient is intubated and sedated. Orientation cannot be checked HEAD: Atraumatic, normocephalic. EYES: Pupils equal round and reactive to light, extraocular movements could not be checked, sclera anicteric, conjunctiva are normal. ENT: TMs normal, nares patent, oropharynx clear without exudates. Moist mucous membranes. No oral ulcerations or bleeding gums noted NECK: supple without lymphadenopathy or JVD. Trachea is central. No cervical or axillary lymphadenopathy noted. Carotids are 2+ LUNGS: Breath sounds mostly clear to auscultation patient is noted to have bibasal crackles at the extreme bases CHEST: Palpation of the chest wall shows no significant chest wall tenderness or abnormalities. 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 ABDOMEN: Soft, no significant tenderness appreciated, normoactive bowel sounds. No guarding, no rebound. No rigidity noted . No masses appreciated. EXTREMITIES: Pedal pulses are 1-2+, no calf tenderness noted, 1+ pedal edema noted. No clubbing or cyanosis. NEUROLOGICAL: The patient cannot participate in the neurological exam but no facial asymmetry noted. Extremities slightly hypotonic PSYCH: This cannot be evaluated. Patient cannot participate. SKIN: No significant ecchymosis, rash, or signs of pruritus noted. MUSCULOSKELETAL EXAM: No significant joint swelling noted. Patient cannot participate in musculoskeletal exam Results Laboratory Results: 01/25/18 05:04 01/25/18 10:07 01/24/18 01/24/18 01/24/18 13:45 16:10 17:27 WBC RBC Hgb Hct MCV MCH MCHC RDW Plt Count Seg Neutrophils % Lymphocytes % Monocytes % Eosinophils % Basophils % Absolute Neutrophils Absolute Lymphocytes Absolute Monocytes Absolute Eosinophils Absolute Basophils Carbonic Acid 1.21 HCO3/H2CO3 Ratio 17:1 ABG pH 7.35 ABG pCO2 40.3 ABG pO2 199.6 H ABG HCO3 21.6 ABG O2 Saturation 99.3 H ABG Base Excess -3.7 FiO2 60% Sodium 161.4 H 158.7 H Potassium 3.7 3.5 L Chloride 127 H 125 H Carbon Dioxide 25 24 Anion Gap 9 10 BUN 21 H 20 Creatinine 1.31 H 1.38 H Est GFR ( Amer) > 60 59 L Est GFR (Non-Af Amer) 52 L 49 L Glucose 99 140 H Calcium 8.4 8.0 L Phosphorus Magnesium Total Bilirubin AST ALT Alkaline Phosphatase Total Protein Albumin 01/24/18 01/24/18 01/25/18 20:52 20:52 01:05 WBC RBC Hgb Hct MCV MCH MCHC RDW Plt Count Seg Neutrophils % Lymphocytes % Monocytes % Eosinophils % Basophils % Absolute Neutrophils Absolute Lymphocytes Absolute Monocytes Absolute Eosinophils Absolute Basophils Carbonic Acid HCO3/H2CO3 Ratio ABG pH ABG pCO2 ABG pO2 ABG HCO3 ABG O2 Saturation ABG Base Excess FiO2 Sodium 156.5 H 156.7 H Potassium 3.1 L 3.4 L Chloride 124 H 124 H Carbon Dioxide 23 22 Anion Gap 10 11 BUN 19 18 Creatinine 1.31 H 1.17 Est GFR ( Amer) > 60 > 60 Est GFR (Non-Af Amer) 52 L 59 L Glucose 137 H 131 H Calcium 8.1 L 8.0 L Phosphorus Magnesium 1.9 Total Bilirubin AST ALT Alkaline Phosphatase Total Protein Albumin 01/25/18 01/25/18 01/25/18 05:04 05:04 06:00 WBC 17.7 H RBC 4.26 L Hgb 11.4 L Hct 36.6 L MCV 86 MCH 26.7 L MCHC 31.1 L RDW 16.3 H Plt Count 169 Seg Neutrophils % 76.6 Lymphocytes % 12.2 L Monocytes % 10.4 Eosinophils % 0.3 Basophils % 0.5 Absolute Neutrophils 13.6 H Absolute Lymphocytes 2.2 Absolute Monocytes 1.8 H Absolute Eosinophils 0.1 Absolute Basophils 0.1 Carbonic Acid 0.68 L HCO3/H2CO3 Ratio 28:1 ABG pH 7.55 H ABG pCO2 22.7 L ABG pO2 78.8 L ABG HCO3 19.2 L ABG O2 Saturation 97.1 ABG Base Excess -1.5 FiO2 21% Sodium 153.6 H Potassium 3.4 L Chloride 123 H Carbon Dioxide 23 Anion Gap 8 BUN 17 Creatinine 1.10 Est GFR ( Amer) > 60 Est GFR (Non-Af Amer) > 60 Glucose 147 H Calcium 7.9 L Phosphorus 1.6 L Magnesium 2.0 Total Bilirubin 0.3 AST 33 ALT 25 Alkaline Phosphatase 71 Total Protein 5.1 L Albumin 2.3 L 01/25/18 01/25/18 10:07 10:08 WBC RBC Hgb Hct MCV MCH MCHC RDW Plt Count Seg Neutrophils % Lymphocytes % Monocytes % Eosinophils % Basophils % Absolute Neutrophils Absolute Lymphocytes Absolute Monocytes Absolute Eosinophils Absolute Basophils Carbonic Acid 0.98 L HCO3/H2CO3 Ratio 22:1 ABG pH 7.44 ABG pCO2 32.7 L ABG pO2 80.2 ABG HCO3 21.8 ABG O2 Saturation 96.3 ABG Base Excess -1.6 FiO2 25% Sodium 151.3 H Potassium 3.2 L Chloride 121 H Carbon Dioxide 24 Anion Gap 6 BUN 16 Creatinine 1.01 Est GFR ( Amer) > 60 Est GFR (Non-Af Amer) > 60 Glucose 152 H Calcium 7.7 L Phosphorus Magnesium Total Bilirubin AST ALT Alkaline Phosphatase Total Protein Albumin 01/24/18 16:10 Tracheal Aspirate Gram Stain - Final 01/24/18 17:30 Throat Throat Culture - Final GREATLY REDUCED NORMAL MERE 01/23/18 01/23/18 01/24/18 18:24 18:24 00:19 Creatine Kinase 232 H 187 H CK-MB (CK-2) 3.80 Troponin I 0.113 NT-Pro-B Natriuret Pep 01/24/18 01/24/18 01/24/18 00:19 06:50 06:50 Creatine Kinase 136 CK-MB (CK-2) 2.43 1.80 Troponin I 0.105 0.100 NT-Pro-B Natriuret Pep 01/25/18 05:04 Creatine Kinase CK-MB (CK-2) Troponin I NT-Pro-B Natriuret Pep 8090 H EKG Comments: Telemetry strips shows sinus rhythm with sinus bradycardia Impressions: Chest/Abdomen CTA 01/04/18 17:22 IMPRESSION: 1. There is no evidence of pulmonary emboli. 2. Centrilobular emphysema. Subsegmental atelectasis. Small pleural effusions. Calcified pleural plaques. Head CT 01/08/18 00:00 IMPRESSION: CHRONIC CHANGES OF ATROPHY AND MICROVASCULAR ISCHEMIA. NO CT EVIDENCE OF ACUTE INTRACRANIAL HEMORRHAGE OR LARGE TERRITORY ACUTE ISCHEMIA. EVIDENCE OF ACUTE STROKE: NO. KUB X-Ray 01/22/18 16:35 IMPRESSION: Nasogastric tube in the stomach. Pelvis Ultrasound 01/24/18 00:00 IMPRESSION: AGUILAR CATHETER APPEARS TO BE IN PROPER POSITION WITHIN THE URINARY BLADDER. Soft Tissue Neck CT 01/24/18 03:47 IMPRESSION: 1.1 cm and 0.8 cm nodular enlargement of the left parapharyngeal space and left paracentral retropharyngeal space at the level of the hyoid causes mild narrowing at the laryngeal inlet. Differential etiologies include infectious, inflammatory, and neoplastic processes. Renal Ultrasound 01/24/18 17:10 IMPRESSION: There is cortical thinning in the left kidney. The study is otherwise normal. Chest X-Ray 01/25/18 06:00 IMPRESSION: No significant change. Assessment & Plan - Diagnosis (1) Elevated troponin I level Is this a current diagnosis for this admission?: Yes (2) Abnormal electrocardiogram Is this a current diagnosis for this admission?: Yes (3) Atrial fibrillation/flutter Is this a current diagnosis for this admission?: Yes (4) COPD (chronic obstructive pulmonary disease) Qualifiers: COPD type: unspecified COPD Qualified Code(s): J44.9 - Chronic obstructive pulmonary disease, unspecified Is this a current diagnosis for this admission?: Yes (5) Hyperlipidemia Qualifiers: Hyperlipidemia type: unspecified Qualified Code(s): E78.5 - Hyperlipidemia , unspecified Is this a current diagnosis for this admission?: Yes (6) Hypertension Qualifiers: Hypertension type: essential hypertension Qualified Code(s): I10 - Essential (primary) hypertension Is this a current diagnosis for this admission?: Yes (7) Physical debility Is this a current diagnosis for this admission?: Yes (8) Hypernatremia Is this a current diagnosis for this admission?: Yes - Notes Notes: Previous cardiac evaluations were reviewed. From cardiac standpoint patient is stable. She is maintaining sinus rhythm. Vital signs have been stable. Patient has paroxysmal atrial flutter fibrillation. Currently in sinus rhythm. Patient somewhat on the bradycardic side. Bradycardia could be related to sedation plus medication. Cardizem is being held. Nurse was advised to give multaq. Patient other general condition is stable. It seems patient has developed a pharyngeal abscess and may be in need for treatment for that. Will be happy to support patient cardiovascularly if needed. Patient generally quite ill and quite debilitated. Will continue to follow. - Time Time with patient: Greater than 35 minutes - CODE STATUS was discussed, patient remains full code. Surrogate decision-maker unchanged. Multiple medical problems were addressed. More than 50% of the time spent coordinating care, discussing management plans with involved caregivers. Management plans discussed with involved personnels. Medical decision making was of moderate to high complexity, patient's has multiple comorbidities. Medications reviewed and adjusted accordingly: Yes
== END 2018-01-25 13:45 | disposition short-term general hospital (02) | DRG 309 ==
LOC: ER 16:38 → INTOOBSV 21:11 → EH 21:11 → 4W 22:27 → 3N 01-05 10:53 → OBSVTOIN 01-05 11:16 → ICU 01-24 14:24
PROVIDERS: ADMIT Internal Medicine; ATTEND Internal Medicine
PROC: 3E0F73Z Introduction of Anti-inflammatory into Respiratory Tract, Via Natural or Artificial Opening (ICD-10-PCS; 2018-01-05)
PROC: 0DH67UZ Insertion of Feeding Device into Stomach, Via Natural or Artificial Opening (ICD-10-PCS; 2018-01-22)
PROC: 5A1945Z Respiratory Ventilation, 24-96 Consecutive Hours (ICD-10-PCS; principal; 2018-01-23)
PROC: 0BH17EZ Insertion of Endotracheal Airway into Trachea, Via Natural or Artificial Opening (ICD-10-PCS; 2018-01-23)
DX: I48.92 Unspecified atrial flutter (principal); E87.0 Hyperosmolality and hypernatremia; N17.9 Acute kidney failure, unspecified; J39.1 Other abscess of pharynx; F10.231 Alcohol dependence with withdrawal delirium; Z66 Do not resuscitate; I48.91 Unspecified atrial fibrillation; R00.1 Bradycardia, unspecified; F03.90 Unspecified dementia, unspecified severity, without behavioral disturbance, psychotic disturbance, mood disturbance, and anxiety; I10 Essential (primary) hypertension; K21.9 Gastro-esophageal reflux disease without esophagitis; E78.00 Pure hypercholesterolemia, unspecified; J43.2 Centrilobular emphysema; K02.9 Dental caries, unspecified; M19.90 Unspecified osteoarthritis, unspecified site; R79.1 Abnormal coagulation profile; I34.0 Nonrheumatic mitral (valve) insufficiency; I25.10 Atherosclerotic heart disease of native coronary artery without angina pectoris; R63.0 Anorexia; Z78.1 Physical restraint status; Z68.25 Body mass index [BMI] 25.0-25.9, adult; Z95.5 Presence of coronary angioplasty implant and graft; Z79.899 Other long term (current) drug therapy; Z79.82 Long term (current) use of aspirin; Z87.891 Personal history of nicotine dependence; Z91.19 Patient's noncompliance with other medical treatment and regimen; Z99.81 Dependence on supplemental oxygen; Z82.49 Family history of ischemic heart disease and other diseases of the circulatory system
CPT/HCPCS: 31500; 36415; 70450; 70490; 70491; 71045; 71275; 74018; 76775; 76857; 80048; 80053; 80162; 81001; 82140; 82550; 82553; 82607; 82803; 82962; 83735; 83880; 84100; 84439; 84443; 84481; 84484; 85025; 85027; 85379; 85610; 85730; 87040; 87070; 87077; 87186; 87205; 87880; 93005; 93010; 93306; 94002; 94003; 94640; 96361; 96374; 99285; G0378; G8978-GP; G8979-GP; J0330; J1160; J1630; J1650; J2060; J2250; J2370; J2543; J2704; J3370; J3411; J3420; J3480; J3490; J7030; J7050; J7060; J7614

== ENCOUNTER 2018-02-22 11:36 | Emergency (ER) | payer MEDICARE, OTHER ==
--- NOTE | 2018-02-22 12:05 | ER Document Report ---
ED General - General Stated Complaint: FALL Time Seen by Provider: 02/22/18 11:52 Mode of Arrival: Medic Information source: Patient Notes: 82-year-old male with COPD, hyperlipidemia, resents via EMS from [facility] after the patient slid out of his wheelchair and landed on the floor just prior to arrival. Patient currently complaining of upper back and low back pain. He denies head injury, loss of consciousness. Patient denies leg weakness, saddle anesthesia, urinary retention, fever. TRAVEL OUTSIDE OF THE [place] IN LAST 30 DAYS: No - HPI Onset: Just prior to arrival Onset/Duration: Sudden Quality of pain: Achy Severity: Mild Associated symptoms: None Exacerbated by: Movement Relieved by: Denies Similar symptoms previously: Yes Recently seen / treated by doctor: Yes - Related Data Allergies/Adverse Reactions: No Known Allergies Allergy (Verified 12/06/11 11:52) Past Medical History - General Information source: Patient, Transfer Record, Emergency Med Personnel, [facility] Records - Social History Smoking Status: Former Smoker Frequency of alcohol use: None Drug Abuse: None Lives with: [facility] Family History: Hypertension - Past Medical History Cardiac Medical History: Reports: Hx Hypercholesterolemia Pulmonary Medical History: Reports: Hx COPD, Hx Pneumonia Renal/ Medical History: Denies: Hx Peritoneal Dialysis GI Medical History: Reports: Hx Gastroesophageal Reflux Disease Musculoskeltal Medical History: Reports Hx Arthritis Infectious Medical History: Denies: Hx C-Diff, Hx HIV - Immunizations Hx Diphtheria, Pertussis, Tetanus Vaccination: No Review of Systems - Review of Systems Notes: REVIEW OF SYSTEMS: CONSTITUTIONAL : Denies fever, chills, or sweats. Denies recent illness. Denies weight loss, recent hospitalizations. EENT: Denies visual changes, eye pain. Denies nasal or sinus congestion or discharge. Denies sore throat, oral lesions, difficulty swallowing. CARDIOVASCULAR: Denies chest pain. Denies palpitations. Denies lower extremity edema. RESPIRATORY: Denies cough, cold, or chest congestion. Denies shortness of breath, wheezing. GASTROINTESTINAL: Denies abdominal pain or distention. Denies nausea, vomiting , or diarrhea. Denies blood in vomitus, stools, or per rectum. Denies black, tarry stools. Denies constipation. GENITOURINARY: Denies difficulty urinating, painful urination, frequency, blood in urine, or vaginal discharge. MUSCULOSKELETAL: Denies neck pain or stiffness. Denies joint pain or swelling. SKIN: Denies rash, lesions or sores. HEMATOLOGIC : Denies easy bruising or bleeding. LYMPHATIC: Denies swollen glands. NEUROLOGICAL: Denies confusion or altered mental status. Denies passing out or loss of consciousness. Denies dizziness or lightheadedness. Denies headache. Denies weakness or paralysis. Denies problems difficulty with ambulation, slurred speech. Denies sensory loss, numbness, or tingling. Denies seizures. PSYCHIATRIC: Denies anxiety or stress. Denies depression, suicidal ideation, or homicidal ideation. Denies visual or auditory hallucinations. Physical Exam - Vital signs Vitals: Temp Pulse Resp BP Pulse Ox 97.4 F 91 20 123/67 97 02/22/18 11:37 02/22/18 11:37 02/22/18 11:37 02/22/18 11:37 02/22/18 11:37 Interpretation: Normal - Notes Notes: PHYSICAL EXAMINATION: GENERAL: Well-appearing, well-nourished and in no acute distress. HEAD: Atraumatic, normocephalic. EYES: Pupils equal round and reactive to light, extraocular movements intact, sclera anicteric, conjunctiva are normal. ENT: Nares patent, oropharynx clear without exudates. Moist mucous membranes. NECK: Normal range of motion, supple without lymphadenopathy LUNGS: Breath sounds clear to auscultation bilaterally and equal. No wheezes rales or rhonchi. HEART: Regular rate and rhythm without murmurs ABDOMEN: Soft, nontender, nondistended abdomen. No guarding, no rebound. No masses appreciated. Musculoskeletal: Midline tenderness of the thoracic and lumbar spine without step-off or deformity. NEUROLOGICAL: Cranial nerves grossly intact. Normal speech, normal gait. Normal sensory, motor exams PSYCH: Normal mood, normal affect. SKIN: Warm, Dry, normal turgor, no rashes or lesions noted. Course - Re-evaluation Re-evalutation: 02/22/18 17:[address] 02/22/18 11:56 IMPRESSION: No acute fracture. Thoracic Spine CT 02/22/18 11:56 IMPRESSION: Marked osteopenia. No acute fracture. 82-year-old male presents via EMS after a slip and fall at his nursing facility where he slid out of his wheelchair and landed on his butt. Upon arrival patient is alert awake and complaining of midline thoracic and lumbar spine pain. CT of the lumbar spine and thoracic spine were obtained and showed no acute fracture but market osteopenia. Patient remained stable throughout his ED course and was transported back to the nursing facility. Patient provided the opportunity to ask questions, and express concerns. Discharge instructions discussed. Patient is agreeable with discharge home. Return indications explained and discussed with the patient who displays understanding. Patient encouraged to return to the emergency department immediately with any concerns. - Vital Signs Vital signs: Temp Pulse Resp BP Pulse Ox 97.4 F 95 20 115/71 97 02/22/18 15:05 02/22/18 15:02 02/22/18 15:05 02/22/18 15:02 02/22/18 15:05 Discharge - Discharge Clinical Impression: Thoracic spine pain Fall Qualifiers: Encounter type: initial encounter Qualified Code(s): W19.XXXA - Unspecified fall, initial encounter Low back pain Qualifiers: Chronicity: acute Back pain laterality: bilateral Sciatica presence: without sciatica Qualified Code(s): M54.5 - Low back pain Disposition: SNF-Other Instructions: Low Back Pain ([facility]) Additional Instructions: Follow up with your physician tomorrow for further care or return to the ED IMMEDIATELY if symptoms worsen or new concerns occur. If you cannot afford to follow up with your primary care physician a list of low cost clinics have been provided at the end of your discharge papers as well. Prescriptions: Acetaminophen [Tylenol 325 mg Tablet] 325 mg PO Q4HP PRN #30 tablet PRN Reason: Referrals: DEBORAH ARTEAGA MD [ACTIVE STAFF] - Follow up tomorrow
--- NOTE | 2018-02-22 13:25 | RADIOLOGY REPORT (SQ) ---
EXAM DESCRIPTION: CT THORACIC SPINE WITHOUT COMPLETED DATE/TIME: 02/22/2018 12:56 pm REASON FOR STUDY: fall COMPARISON: None. TECHNIQUE: Axial images acquired through the thoracic spine without intravenous contrast. Images re viewed with lung, soft tissue and bone windows. Reconstructed coronal and sagittal MPR images review ed. Images stored on PACS. All CT scanners at this facility use dose modulation, iterative reconstruction, and/or weight based d osing when appropriate to reduce radiation dose to as low as reasonably achievable (ALARA). [facility]: Dose Right [facility]: CareDose [facility]: Dose Right [facility]: Teradose 4D [facility]: [employer] RADIATION DOSE: CT Rad equipment meets quality standard of care and radiation dose reduction techniq ues were employed. CTDIvol: 26.3 mGy. DLP: 1071 mGy-cm. mGy. LIMITATIONS: None. FINDINGS: VISUALIZED LUNGS: Small left effusion. SOFT TISSUES: No soft tissue swelling. No masses. VERTEBRAL BODIES: No fractures. No dislocation. No acute findings. DISCS: Generalized degenerative disc. And ALIGNMENT: Normal. TRANSVERSE PROCESSES, POSTERIOR ELEMENTS: No fractures. No dislocation. No acute findings. HARDWARE: None in the spine. VISUALIZED RIBS: No fractures. OTHER: Marked osteopenia. IMPRESSION: Marked osteopenia. No acute fracture. TECHNICAL DOCUMENTATION: JOB ID: [id number] Quality ID # [id number]: Final reports with documentation of one or more dose reduction techniques (e.g., Au tomated exposure control, adjustment of the mA and/or kV according to patient size, use of iterative reconstruction technique) 2010 [employer]- All Rights Reserved Reading location - IP/workstation name: [email or web address]
--- NOTE | 2018-02-22 13:55 | RADIOLOGY REPORT (SQ) ---
EXAM DESCRIPTION: CT LUMBAR SPINE WITHOUT COMPLETED DATE/TIME: 02/22/2018 12:56 pm REASON FOR STUDY: fall COMPARISON: None. TECHNIQUE: Axial images acquired through the lumbar spine without intravenous contrast. Images revi ewed with lung, soft tissue and bone windows. Reconstructed coronal and sagittal MPR images reviewed . All images stored on PACS. All CT scanners at this facility use dose modulation, iterative reconstruction, and/or weight based d osing when appropriate to reduce radiation dose to as low as reasonably achievable (ALARA). [facility]: Dose Right [facility]: CareDose [facility]: Dose Right [facility]: Teradose 4D [facility]: [employer] RADIATION DOSE: mGy. LIMITATIONS: None. FINDINGS: SEGMENTATION: Normal. No transitional anatomy. ALIGNMENT: Normal. VERTEBRAL BODIES: No fractures. No dislocation. No acute findings. DISCS: Degenerative disc L4-5 and L5-S1. PEDICLES, TRANSVERSE PROCESSES: No fractures. No dislocation. No acute findings. FACETS, POSTERIOR ELEMENTS: No fractures. No dislocation. No spinal stenosis. HARDWARE: None in the spine. VISUALIZED RIBS: No fractures. SOFT TISSUES: No significant or acute finding in adjacent soft tissues. OTHER: Marked osteopenia. IMPRESSION: No acute fracture. TECHNICAL DOCUMENTATION: JOB ID: [id number] Quality ID # [id number]: Final reports with documentation of one or more dose reduction techniques (e.g., Au tomated exposure control, adjustment of the mA and/or kV according to patient size, use of iterative reconstruction technique) 2010 [employer]- All Rights Reserved Reading location - IP/workstation name: [email or web address]
[2018-02-22 15:18] VITALS: BP 115/71
== END 2018-02-22 15:05 ==
LOC: ER 11:36
DX: M54.5 Low back pain (principal); M54.6 Pain in thoracic spine; W05.0XXA Fall from non-moving wheelchair, initial encounter; Y92.199 Unspecified place in other specified residential institution as the place of occurrence of the external cause; J44.9 Chronic obstructive pulmonary disease, unspecified; M85.88 Other specified disorders of bone density and structure, other site
CPT/HCPCS: 72128; 72131; 99284

== ENCOUNTER 2018-03-11 14:54 | Emergency (ER) | payer MEDICARE, OTHER ==
--- NOTE | 2018-03-11 15:25 | ER Document Report ---
ED Fall - General Chief Complaint: Dizziness Stated Complaint: FALL ABDOMINAL PAIN Time Seen by Provider: 03/11/18 14:59 TRAVEL OUTSIDE OF THE [place] IN LAST 30 DAYS: No - HPI Patient complains to provider of: Fall, dizziness, head injury, hip pain Occurred: Just prior to arrival Where: Residential Context: Lost balance Location of injury/pain: Head, Hip Notes: Patient is an 82-year-old male sent from local nursing facility for complaints of dizziness which led to him falling, he reports he tried to stand up twice with assistance and the second time fell to the floor, complains of right hip pain as well as pain to his posterior head, patient denies any loss of consciousness, no vision changes, no nausea or vomiting - Related data Allergies/Adverse Reactions: No Known Allergies Allergy (Verified 03/11/18 14:55) Past Medical History - General Information source: Patient - Social History Smoking Status: Unknown if Ever Smoked Family History: Hypertension - Past Medical History Cardiac Medical History: Reports: Hx Atrial Fibrillation, Hx Hypercholesterolemia, Hx Hypertension Pulmonary Medical History: Reports: Hx COPD, Hx Pneumonia Renal/ Medical History: Denies: Hx Peritoneal Dialysis GI Medical History: Reports: Hx Gastroesophageal Reflux Disease Musculoskeletal Medical History: Reports Hx Arthritis Infectious Medical History: Denies: Hx C-Diff, Hx HIV Past Surgical History: Reports: Hx Abdominal Surgery - g-tube - Immunizations Hx Diphtheria, Pertussis, Tetanus Vaccination: No Review of Systems - Review of Systems Constitutional: No symptoms reported EENT: No symptoms reported Cardiovascular: See HPI Respiratory: No symptoms reported Gastrointestinal: No symptoms reported Genitourinary: No symptoms reported Male Genitourinary: No symptoms reported Musculoskeletal: See HPI Skin: No symptoms reported Hematologic/Lymphatic: No symptoms reported Neurological/Psychological: No symptoms reported -: Yes All other systems reviewed and negative Physical Exam - Vital signs Vitals: Temp Pulse Resp BP Pulse Ox 98 F 63 17 105/53 L 97 03/11/18 15:12 03/11/18 15:12 03/11/18 15:12 03/11/18 15:12 03/11/18 15:12 Interpretation: Normal - General General appearance: Appears well, Alert - HEENT Head: Normocephalic, Atraumatic, Tenderness - to posterior scalp Eyes: Normal Pupils: PERRL - Respiratory Respiratory status: No respiratory distress Chest status: Nontender Breath sounds: Normal Chest palpation: Normal - Cardiovascular Rhythm: Regular Heart sounds: Normal auscultation Murmur: No - Abdominal Inspection: Normal, Other - G-tube in place Distension: No distension Bowel sounds: Normal Tenderness: Nontender Organomegaly: No organomegaly - Back Back: Normal, Nontender - Extremities General upper extremity: Normal inspection, Nontender, Normal color, Normal ROM , Normal temperature General lower extremity: Normal inspection, Nontender, Normal color, Normal ROM , Normal temperature, Normal weight bearing. No: Kelle's sign Hip: Tender - Tenderness to palpate over right greater trochanter, however patient moves his leg without difficulty and there is no noted deformity - Neurological Neuro grossly intact: Yes Cognition: Normal Orientation: AAOx4 [place] Coma Scale Eye Opening: Spontaneous [place] Coma Scale Verbal: Oriented Ne[place] Coma Scale Motor: Obeys Commands Neftaly Coma Scale Total: 15 Speech: Normal Motor strength normal: LUE, RUE, LLE, RLE Sensory: Normal - Psychological Associated symptoms: Normal affect, Normal mood - Skin Skin Temperature: Warm Skin Moisture: Dry Skin Color: Normal Course - Re-evaluation Re-evalutation: 03/11/18 18:01 Lab and imaging findings discussed at bedside which are unremarkable, no evidence of any acute injury from his fall today, no evidence of infectious process going on either, halfway reports that patient is a 2 person assist to ambulate, therefore given patient's unremarkable workup he will be discharged back to the care facility with instructions for follow-up, advised to return if symptoms worsen - Vital Signs Vital signs: Temp Pulse Resp BP Pulse Ox 98 F 63 19 113/60 98 03/11/18 15:12 03/11/18 15:12 03/11/18 17:54 03/11/18 17:54 03/11/18 17:54 - Laboratory Result Diagrams: 03/11/18 16:22 03/11/18 16:22 Laboratory results interpreted by me: 03/11/18 03/11/18 16:22 16:22 RBC 3.67 L Hgb 10.6 L Hct 31.6 L RDW 21.3 H Sodium 136.1 L Chloride 97 L BUN 34 H Est GFR (Non-Af Amer) 58 L Alkaline Phosphatase 164 H Albumin 3.3 L - Diagnostic Test Radiology reviewed: Image reviewed, Reports reviewed - EKG Interpretation by Me Rate: Normal Heart block present: 1st Degree Discharge - Discharge Clinical Impression: Head injury Fall Qualifiers: Encounter type: initial encounter Qualified Code(s): W19.XXXA - Unspecified fall, initial encounter Contusion, hip Qualifiers: Encounter type: initial encounter Laterality: right Qualified Code(s): S70.01XA - Contusion of right hip, initial encounter Condition: Stable Disposition: HOME, SELF-CARE Instructions: Contusion ([facility]), Head Injury Precautions ([facility]) Additional Instructions: Follow up with your primary care provider in one to 2 days. Return to the emergency room immediately if symptoms worsen or any additional concerns. Referrals: ARAMNI TOLEDO, DO [Primary Care Provider] - Follow up as needed
--- NOTE | 2018-03-11 15:53 | RADIOLOGY REPORT (SQ) ---
EXAM DESCRIPTION: CT HEAD WITHOUT COMPLETED DATE/TIME: 03/11/2018 3:43 pm REASON FOR STUDY: fall COMPARISON: CT head 01/08/2018, 01/06/2018 TECHNIQUE: Axial images acquired through the brain without intravenous contrast. Images reviewed wi th bone, brain and subdural windows. Images stored on PACS. All CT scanners at this facility use dose modulation, iterative reconstruction, and/or weight based d osing when appropriate to reduce radiation dose to as low as reasonably achievable (ALARA). [facility]: Dose Right [facility]: CareDose [facility]: Dose Right [facility]: Teradose 4D [facility]: [employer] RADIATION DOSE: CT Rad equipment meets quality standard of care and radiation dose reduction techniq ues were employed. CTDIvol: 53.2 mGy. DLP: 964 mGy-cm.mGy. LIMITATIONS: None. FINDINGS: VENTRICLES: Prominent. CEREBRUM: No mass effect. No hemorrhage. No midline shift. Areas of low density in the white matte r most likely due to chronic micro-vascular ischemic change. No evidence for acute territorial infar ction. CEREBELLUM: No hemorrhage. No alteration of density. No evidence for acute infarction. EXTRAAXIAL SPACES: Age-related involutional change. No fluid collections. ORBITS AND GLOBE: Symmetrical contour of the globes. CALVARIUM: No depressed fracture. PARANASAL SINUSES: No air-fluid level. SOFT TISSUES: No hematoma. IMPRESSION: No acute intracranial hemorrhage or depressed calvarial fracture. 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 EVIDENCE OF ACUTE STROKE: NO. TECHNICAL DOCUMENTATION: JOB ID: [id number] [facility] Quality ID # 436: Final reports with documentation of one or more dose reduction techniques (e.g., Au tomated exposure control, adjustment of the mA and/or kV according to patient size, use of iterative reconstruction technique) 2010 [employer]- All Rights Reserved Reading location - IP/workstation name: [email or web address]
--- NOTE | 2018-03-11 16:07 | RADIOLOGY REPORT (SQ) ---
EXAM DESCRIPTION: PELVIS AP COMPLETED DATE/TIME: 03/11/2018 3:59 pm REASON FOR STUDY: fall COMPARISON: None. NUMBER OF VIEWS: One view TECHNIQUE: AP Pelvis LIMITATIONS: None. FINDINGS: MINERALIZATION: Normal. HIPS: No acute fracture or dislocation. No worrisome bone lesions. PELVIS AND SACRUM: No acute fracture or dislocation. No worrisome bone lesions. PUBIS AND ISCHIUM: No acute fracture. LOWER LUMBAR SPINE: Lumbar spondylosis. SOFT TISSUES: No findings. OTHER: Vascular calcification of iliac and femoral vessels. IMPRESSION: No acute fracture identified. TECHNICAL DOCUMENTATION: JOB ID: [id number] SC-69 2010 [employer]- All Rights Reserved Reading location - IP/workstation name: [email or web address]
--- NOTE | 2018-03-11 16:11 | RADIOLOGY REPORT (SQ) ---
EXAM DESCRIPTION: CHEST 2 VIEWS COMPLETED DATE/TIME: 03/11/2018 3:59 pm REASON FOR STUDY: weakness, fall COMPARISON: 12/06/2011. EXAM PARAMETERS: NUMBER OF VIEWS: two views TECHNIQUE: Digital Frontal and Lateral radiographic views of the chest acquired. RADIATION DOSE: NA LIMITATIONS: none FINDINGS: LUNGS AND PLEURA: There is blunting the left costophrenic angle laterally and posteriorly consistent with left pleural thickening or effusion. Mild hyperinflation s consistent with COPD. MEDIASTINUM AND HILAR STRUCTURES: No masses or contour abnormalities. HEART AND VASCULAR STRUCTURES: The heart is normal with aortic atherosclerosis. Pulmonary vasculatur e is normal. BONES: No acute findings. HARDWARE: None in the chest. OTHER: No other significant finding. IMPRESSION: COPD. Left pleural thickening or effusion. TECHNICAL DOCUMENTATION: JOB ID: [id number] SC-69 2010 [employer]- All Rights Reserved Reading location - IP/workstation name: [email or web address]
[2018-03-11 16:39] LABS: ABSOLUTE EOSINOPHILS # (AUTO) 0.3 10^3/uL (0.0-0.6); ABSOLUTE LYMPHOCYTES (AUTO) 1.8 10^3/uL (0.5-4.7); ABSOLUTE MONOCYTES (AUTO) 0.8 10^3/uL (0.1-1.4); ABSOLUTE NEUT (AUTO) 5.5 10^3/uL (1.7-8.2); BASOPHILS % (AUTO) 0.4 % (0-2); EOSINOPHILS % (AUTO) 2.9 % (0-6); HEMATOCRIT 31.6 % (37.9-51.0); HEMOGLOBIN 10.6 g/dL (13.5-17.0); LYMPHOCYTES % (AUTO) 21.7 % (13-45); MEAN CORPUSCULAR HGB CONC 33.7 g/dL (32.0-36.0); MEAN CORPUSCULAR VOLUME 86 fl (80-97); MONOCYTES % (AUTO) 9.7 % (3-13); PLATELET COUNT 318 10^3/uL (150-450); RED BLOOD COUNT 3.67 10^6/uL (4.35-5.55); RED CELL DISTRIBUTION WIDTH 21.3 % (11.5-14.0); SEGMENTED NEUTROPHILS % (AUTO) 65.3 % (42-78); TOTAL CELLS COUNTED % (AUTO) 100 %; WHITE BLOOD COUNT 8.5 10^3/uL (4.0-10.5)
[2018-03-11 16:51] LABS: ALANINE AMINOTRANSFERASE 41 U/L (21-72); ALBUMIN 3.3 g/dL (3.5-5.0); ALKALINE PHOSPHATASE 164 U/L (38-126); ANION GAP 12 (5-19); ASPARTATE AMINO TRANSFERASE 34 U/L (17-59); BILIRUBIN,DIRECT 0.3 mg/dL (0.0-0.4); BILIRUBIN,TOTAL 0.5 mg/dL (0.2-1.3); BLOOD UREA NITROGEN 34 mg/dL (7-20); CALCIUM 8.6 mg/dL (8.4-10.2); CARBON DIOXIDE 27 mmol/L (22-30); CHLORIDE 97 mmol/L (98-107); GLUCOSE 90 mg/dL (75-110); LIPASE 266.7 U/L (23-300); SODIUM 136.1 mmol/L (137-145); TOTAL PROTEIN 6.9 g/dL (6.3-8.2)
[2018-03-11 19:57] VITALS: BP 109/98
--- NOTE | 2018-03-11 22:10 | EKG REPORT ---
SEVERITY:- ABNORMAL ECG - POSSIBLE ATRIAL ARRHYTHMIA, A-RATE 210 , REC REPEAT EKG BORDERLINE T ABNORMALITIES, ANT-LAT LEADS PROLONGED QT INTERVAL : Confirmed by: Flaquito Nguyen 11-Mar-2018 22:10:07
== END 2018-03-11 20:05 | disposition home or self-care (01) ==
LOC: ER 14:54
DX: S09.90XA Unspecified injury of head, initial encounter (principal); S70.01XA Contusion of right hip, initial encounter; R10.9 Unspecified abdominal pain; R42 Dizziness and giddiness; W01.0XXA Fall on same level from slipping, tripping and stumbling without subsequent striking against object, initial encounter; Y92.009 Unspecified place in unspecified non-institutional (private) residence as the place of occurrence of the external cause; I48.91 Unspecified atrial fibrillation; E78.00 Pure hypercholesterolemia, unspecified; I10 Essential (primary) hypertension; J44.9 Chronic obstructive pulmonary disease, unspecified
CPT/HCPCS: 36415; 70450; 71046; 72170; 80053; 83690; 84484; 85025; 93005; 93010; 99285